=== PATIENT | female | born 1960 | race Caucasian/White ===

== ENCOUNTER → 2016-11-28 | Outpatient (CLI) | payer OTHER ==
--- OUTSIDE RECORDS SUMMARY | 2016-11-28 08:38 | XMS REPORT | Continuity of Care Document ---
Author Author [facility] Organization [facility] Address Unknown Phone Unavailable Allergies Medications Problems Procedures Results Encounters ACCT No. Visit Date/Time Discharge Status Pt. Type Provider Facility Loc./Unit Complaint [id number] 07/12/2014 09:59:00 2013 12:45:00 DIS Outpatient [id number] 07/08/2014 07:12:00 2013 23:59:59 CLS Outpatient [id number] 10/09/2013 09:03:00 2012 23:59:59 CLS Outpatient [id number] 06/29/2013 08:27:00 2012 23:59:59 CLS Outpatient
--- NOTE | 2016-11-28 12:34 | Diagnostic Imaging Report ---
PA and lateral views of the chest. INDICATION: Cough. Dyspnea. FINDINGS: There is focal eventration of the left hemidiaphragm. The lungs appear clear. The heart size is normal. No effusion or pneumothorax. Mediastinum and king appear unremarkable. When compared to 02/21/2012, no significant change is seen. IMPRESSION: Unremarkable exam. Dictated by: Dictated on workstation # [id number]
== END ==
LOC: RAD 08:35
PROVIDERS: ATTEND Family Medicine
DX: R06.00 Dyspnea, unspecified (principal); R05 Cough
CPT/HCPCS: 71020

== ENCOUNTER → 2016-12-05 | Outpatient (CLI) | payer OTHER ==
[~2016-12-05] MED LIST: RT-ALBUTEROL SULF 2.5 MG/3 ML PRE-MIX VIAL INH ONE
== END ==
LOC: RT 11:19
PROVIDERS: ATTEND Family Medicine
DX: R06.00 Dyspnea, unspecified (principal); R05 Cough
CPT/HCPCS: 94060; 94640; 94726; 94729

== ENCOUNTER 2016-12-24 08:03 | Outpatient (RCR) | payer OTHER ==
--- OUTSIDE RECORDS SUMMARY | 2016-12-24 08:06 | XMS REPORT | Continuity of Care Document ---
Author Author [facility] Organization [facility] Address Unknown Phone Unavailable Allergies Active Description Code Type Severity Reaction Onset Reported/Identified Relationship to Patient Clinical Status Yes acetaminophen [id number] Drug Allergy Mild NAUSEA 04/26/2009 Yes hydrocodone [id number] Drug Allergy Mild NAUSEA 04/26/2009 Medications Problems Date Dx Coded Attending Type Code Diagnosis Diagnosed By 07/12/2014 NAJMA FLORES, BOOGIE Melo Ot V18.51 FAMILY HISTORY, COLONIC POLYPS 07/12/2014 NAJMA FLORES, BOOGIE Melo Ot V76.51 SCREEN MAL NEOP-COLON 11/28/2016 Ot 780.79 OTH MALAISE FATIGUE 11/28/2016 Ot 786.09 RESPIRATORY ABNORM NEC 11/28/2016 Ot 786.2 COUGH 11/28/2016 Ot 793.82 INCONCLUSIVE MAMMOGRAM 11/28/2016 Ot V18.0 FAM HX-DIABETES MELLITUS 11/28/2016 Ot V76.12 OTH SCREEN MAMMO-MALIGN NEOPLASM OF NORTH 11/28/2016 Ot 611.72 LUMP OR MASS IN BREAST 11/28/2016 ORENDER DO, ANJEL S Ot 793.89 OTH (ABN) FINDINGS ON RADIOLOGICAL EXAMI 11/28/2016 BOOGIE YAO MD Ot 611.72 LUMP OR MASS IN BREAST 11/28/2016 NAJMA FLORES, BOOGIE Melo Ot V72.84 EXAM PRE-OPERATIVE NOS 11/29/2016 ORENDER DO, ANJEL S Ot R05 COUGH 11/29/2016 ORENDER DO, ANJEL S Ot R06.00 DYSPNEA, UNSPECIFIED 12/04/2016 ORENDER DO, ANJEL S Ot R05 COUGH 12/04/2016 ORENDER DO, ANJEL S Ot R06.00 DYSPNEA, UNSPECIFIED 12/06/2016 ORENDER DO, ANJEL S Ot R05 COUGH 12/06/2016 ORENDER DO, ANJEL S Ot R06.00 DYSPNEA, UNSPECIFIED 12/06/2016 ORENDER DO, ANJEL S Ot R05 COUGH 12/06/2016 IAMNDKAIN DOANA PAULAANJEL S Ot R06.00 DYSPNEA, UNSPECIFIED 12/11/2016 IAMNDKAIN ANA PAULA TAYOLRLINE S Ot R05 COUGH 12/11/2016 IAMNDKAIN DONENITAANJEL S Ot R06.00 DYSPNEA, UNSPECIFIED Procedures Results Encounters ACCT No. Visit Date/Time Discharge Status Pt. Type Provider Facility Loc./Unit Complaint [id number] 07/12/2014 09:59:00 2013 12:45:00 DIS Outpatient BOOGIE YAO MD [facility] SDC SCREENING [id number] 07/08/2014 07:12:00 2013 23:59:59 CLS Outpatient BOOGIE YAO MD [facility] PREOP SCREENING [id number] 10/09/2013 09:03:00 2012 23:59:59 CLS Outpatient BOOGIE YAO MD [facility] RAD RT BREAST LUMP [id number] 06/29/2013 08:27:00 2012 23:59:59 CLS Outpatient ANA PAULA MCNULTY DOLINE S [facility] RAD SCREENING [id number] 12/24/2016 08:03:00 ACT Outpatient NENITA MCNULTY DOQUELINE S [facility] PULM SEVERE COPD [id number] 12/05/2016 11:19:00 ACT Outpatient NENITA MCNULTY DOQUELINE S [facility] RT DYSPNEA,COUGH [id number] 11/28/2016 08:35:00 ACT Outpatient NENITA MCNULTY DOQUELINE S [facility] RAD COUGH,DYSPNEA [id number] 03/11/2012 13:23:00 Document Registration [id number] 02/21/2012 13:34:00 Document Registration
== END 2017-03-24 | disposition home or self-care (01) ==
LOC: PULM 08:03
PROVIDERS: ATTEND Family Medicine
DX: J44.9 Chronic obstructive pulmonary disease, unspecified (principal)
CPT/HCPCS: 99211

== ENCOUNTER → 2017-09-09 | Outpatient (CLI) | payer OTHER ==
--- NOTE | 2017-09-09 10:00 | Diagnostic Imaging Report ---
PA and lateral views of the chest Indication: Right-sided chest pain Findings: The lungs are clear of focal infiltrates. Minimal chronic appearing interstitial prominence is seen. The heart size is normal. There is no effusion or pneumothorax The mediastinum and king appear unremarkable. There is eventration of the left hemidiaphragm medially similar to 11/28/2016. Impression: No acute process. Dictated by: Dictated on workstation # [id number]
== END ==
LOC: RAD 09:18
PROVIDERS: ATTEND Nurse Practitioner Family
DX: R07.89 Other chest pain (principal)
CPT/HCPCS: 71020

== ENCOUNTER → 2019-04-02 | Outpatient (CLI) | payer OTHER ==
--- NOTE | 2019-04-02 10:43 | Diagnostic Imaging Report ---
INDICATION: Screening for lung cancer, chronic bronchitis, 58.5 pack year history of smoking. COMPARISON: None available. TECHNIQUE: Multiple contiguous axial CT images are obtained through the chest without the administration of intravenous contrast dated 04/02/2019. Sagittal and coronal reformatted images are reviewed. Low dose screening CT protocol used. FINDINGS: No significant adenopathy within the chest. Minimal scattered vascular calcifications. No aneurysmal dilatation of the thoracic aorta. The heart is within normal limits in size. No pericardial effusion. No pleural effusion. No pneumothorax. Moderate background centrilobular emphysematous changes are present. 0.3 x 0.3 cm solid subpleural left upper lobe pulmonary nodule, series 2, image 27. 0.4 cm part solid pulmonary nodule is identified within the anterior aspect of the left upper lobe, series 2, image 61. 0.6 x 0.4 cm pulmonary nodule is noted within the right lower lobe, series 2, image 116. The lungs are otherwise clear. Linear intraluminal filling defects are identified within the trachea extending into the bilateral mainstem bronchi. This is felt to relate to mucous. Fat-containing Bochdalek hernia on the left. Minimally visualized upper abdomen is unremarkable. No acute osseous abnormality with mild scattered osseous degenerative changes. IMPRESSION: 1. No acute abnormality. 2. Bilateral sub-6 mm solid pulmonary nodules. Given size and appearance, these demonstrate a benign appearance or behavior. Therefore, followup low dose CT of the chest is recommended in one year to ensure stability. 3. Moderate background emphysematous changes. 4. Mucus and secretions within the trachea extending into the bilateral mainstem bronchi. LungRads category 2S: Benign appearance or behavior. MODIFIER: S : Moderate background emphysematous changes. FOLLOWUP: Low dose CT of the chest is recommended in one year. Dictated by: Dictated on workstation # [id number]
== END ==
LOC: RAD 09:23
PROVIDERS: ATTEND Nurse Practitioner Family
DX: J43.2 Centrilobular emphysema (principal); R91.8 Other nonspecific abnormal finding of lung field; E66.9 Obesity, unspecified; J42 Unspecified chronic bronchitis; G25.81 Restless legs syndrome; G47.10 Hypersomnia, unspecified; Z87.891 Personal history of nicotine dependence

== ENCOUNTER → 2019-04-16 | Outpatient (CLI) | payer OTHER ==
--- NOTE | 2019-04-16 20:09 | Diagnostic Imaging Report ---
INDICATION: Routine screening. COMPARISON: Comparison is made with prior mammogram from 06/29/2013. TECHNIQUE: 2-D and 3-D bilateral screening mammography was performed. The current study was also evaluated with a Computer Aided Detection (CAD) system. 3-D tomosynthesis was also performed and reviewed. FINDINGS: Scattered fibroglandular densities are identified bilaterally. Scattered nodular densities appear stable. Biopsy clip in the right breast is noted. No new mass or malignant-appearing microcalcifications are seen. The axillae are unremarkable. IMPRESSION: No mammographic features suspicious for malignancy are identified. ACR BI-RADS Category 2: Benign findings. Result letter will be mailed to the patient. Note: At least 10% of breast cancer is not imaged by mammography. Dictated by: Dictated on workstation # [id number]
== END ==
LOC: RAD 10:40
PROVIDERS: ATTEND Nurse Practitioner Family
DX: Z12.31 Encounter for screening mammogram for malignant neoplasm of breast (principal)
CPT/HCPCS: 77067

== ENCOUNTER 2019-05-11 05:41 | Outpatient (CLI) | payer OTHER ==
[~2019-05-11] VITALS: Ht 149.9 cm; Wt 59.9 kg
[2019-05-11] MEDS ORDERED: AMLO5TAB9 PO (14:04)
[2019-05-11] MEDS ORDERED: BUPR150T9 PO (14:04)
[2019-05-11] MEDS ORDERED: BUDE10.2 IH (14:04)
== END 2019-05-11 14:13 | disposition home or self-care (01) ==
LOC: PREOP 05:41
PROVIDERS: ATTEND Internal Medicine
DX: Z01.818 Encounter for other preprocedural examination (principal)

== ENCOUNTER 2019-05-15 06:35 | Day surgery (SDC) | payer OTHER ==
--- NOTE | 2019-04-28 18:33 | HISTORY AND PHYSICAL ---
DATE OF SERVICE: COLONOSCOPY HISTORY AND PHYSICAL HISTORY OF PRESENT ILLNESS: The patient is a 58-year-old white female referred by Dr. Hummel for screening colonoscopy. She reports that she feels well, has noted no bowel habit change. Denies melena or bright red blood per rectum and reports weight has been stable. FAMILY HISTORY: Pertinent for a sister who is three years older, recently had several precancerous colon polyps removed. She is not aware of any family history for colon cancer or inflammatory bowel disease. 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 She has no known history for vascular disease that she is aware of. PAST SURGICAL HISTORY: Several years ago, she had total abdominal hysterectomy and bilateral salpingo-oophorectomy for fibroids as well as endometriosis. She had a tonsillectomy and adenoidectomy as a child. SOCIAL HISTORY: She is employed. Reports occasional social alcohol intake with no history of alcohol use disorder and has smoked 1 pack of cigarettes per day for a little over 30 years. MEDICATIONS ON ADMISSION: Include losartan unknown dose daily, Symbicort 2 puffs b.i.d. and ProAir inhaler 2 puffs q.4 hours p.r.n. ALLERGIES: She is not aware of any known drug allergies. REVIEW OF SYSTEMS: CONSTITUTIONAL: She denies any weight loss, night sweats, chills or fever. PULMONARY HISTORY: She reports stable dyspnea on exertion, mild cough productive of scant amount of clear sputum on a regular basis, but no current wheezing with stable dyspnea on exertion. No dyspnea at rest. CARDIOVASCULAR: She has no reported history of presyncope, syncope, chest pain or palpitation. GASTROINTESTINAL: As noted in the HPI. PHYSICAL EXAMINATION: GENERAL: Reveals a well-appearing white female, appears to be in no acute distress. VITAL SIGNS: Weight 146.2 pounds, blood pressure 130/81, heart rate 72 and regular. HEENT: Unremarkable. She has a Mallampati 3 pharyngeal configuration. Sclerae nonicteric. CHEST: Clear to auscultation. CARDIOVASCULAR: Reveals a regular rate and rhythm without murmur, S3 or S4. ABDOMEN: Soft, supple without mass, organomegaly or tenderness. EXTREMITIES: Reveal no cyanosis, clubbing or edema. ASSESSMENT: The patient's electronic medical record was reviewed. Prep instructions were given. The patient is set up for screening colonoscopy on 05/15/2019. The patient's questions were answered. I thank you for the referral of this pleasant lady. Job ID: [id number] DocumentID: [id number] Dictated Date: 04/24/2019 13:10:27 M48/M60 Tank Driver Date: 04/24/2019 13:49:58 Dictated By: MANNY MASON MD
[2019-05-15] VITALS (17 sets, daily range): BP systolic 89–166; BP diastolic 48–88
[~2019-05-15] VITALS: Ht 149.9 cm; Wt 59.9 kg
[~2019-05-15 06:35] MED LIST changes: +AMLO5TAB9 PO; +BUDE10.2 IH; +BUPR150T9 PO; -RT-ALBUTEROL SULF 2.5 MG/3 ML PRE-MIX VIAL INH ONE
[2019-05-15] MEDS ORDERED: fentaNYL INJECTION 100 MCG/2 ML AMP IVP ONE (07:00)
[2019-05-15] MEDS ORDERED: LIDOCAINE JELLY 2% 6 ML SYRINGE MM PRN (07:00)
[2019-05-15] MEDS ORDERED: MIDAZOLAM 2 MG/2 ML (VERSED) VIAL IVP ONE (07:00)
[2019-05-15] MEDS ORDERED: D5 LR IV SOLUTION 1,000 ML IV STA (07:00)
[2019-05-15] MEDS ORDERED: D5 LR IV SOLUTION 1,000 ML IV ONE (07:12)
[2019-05-15] MEDS ORDERED: LIDOCAINE JELLY 2% 6 ML SYRINGE ONE (07:41)
[2019-05-15] MEDS ORDERED: MIDAZOLAM 2 MG/2 ML (VERSED) VIAL ONE ×4 (07:42→08:16)
[2019-05-15] MEDS ORDERED: fentaNYL INJECTION 100 MCG/2 ML AMP ONE ×2 (07:42→08:16)
--- NOTE | 2019-05-15 07:59 | Pre-Op Note & Conscious Sedat ---
Pre-Operative Progress Note H&P Reviewed The H&P was reviewed, patient examined and no changes noted. Date H&P Reviewed: May 15, 2019 Time H&P Reviewed: 07:40 Conscious Sedation Pre-Proced ASA Score 2 For ASA 3 and 4: Consider anesthesia and medical clearance. Also, for patients with a history of failed moderate sedation consider anesthesia. Airway Lungs Heart ASA score ASA 1: a normal healthy patient ASA 2: a patient with a mild systemic disease (mid diabetes, controlled hypertension, obesity ASA 3: a patient with a severe systemic disease that limits activity (angina, COPD, prior Myocardial infarction) ASA 4: a patient with an incapacitating disease that is a constant threat to life (CHF, renal failure) ASA 5: a moribund patient not expected to survive 24 hrs. (ruptured aneurysm) ASA 6: a declared brain- patient whose organs are being harvested. For emergent operations, add the letter E after the classification Mallampati Classification Grade 3 Sedation Plan Analgesia, Amnesia, Plan communicated to team members, Discussed options with patient/fam, Discussed risks with patient/fam The patient is an appropriate candidate to undergo the planned procedure, sedation, and anesthesia. The patient immediately re-assessed prior to indication. MANNY MASON MD May 15, 2019 07:59
--- OUTSIDE RECORDS SUMMARY | 2019-05-15 10:16 | XMS REPORT | Continuity of Care Document ---
Author Organization Unknown Address Unknown Allergies Active Description Code Type Severity Reaction Onset Reported/Identified Relationship to Patient Clinical Status Yes acetaminophen [id number] Drug Allergy Mild NAUSEA 04/26/2009 Yes hydrocodone [id number] Drug Allergy Mild NAUSEA 04/26/2009 Yes amoxicillin [id number] Drug Allergy Mild RASH 05/11/2019 Medications There is no data. Problems Date Dx Coded Attending Type Code Diagnosis Diagnosed By 07/12/2014 NAJMA FLORES, BOOGIE Melo Ot V18.51 FAMILY HISTORY, COLONIC POLYPS 07/12/2014 NAJMA FLORES, BOOGIE Melo Ot V76.51 SCREEN MAL NEOP-COLON 11/28/2016 Ot 780.79 OTH MALAISE FATIGUE 11/28/2016 Ot 786.09 RESPIRATORY ABNORM NEC 11/28/2016 Ot 786.2 COUGH 11/28/2016 Ot 793.82 INCONCLUSIVE MAMMOGRAM 11/28/2016 Ot V18.0 FAM HX-DIABETES MELLITUS 11/28/2016 Ot V76.12 OTH SCREEN MAMMO- MALIGN NEOPLASM OF NORTH 11/28/2016 Ot 611.72 LUMP OR MASS IN BREAST 11/28/2016 ORENDER DO, EMILY S Ot 793.89 OTH (ABN) FINDINGS ON RADIOLOGICAL EXAMI 11/28/2016 NAJMA FLORES, BOOGIE Melo Ot 611.72 LUMP OR MASS IN BREAST 11/28/2016 NAJMA FLORES, BOOGIE Melo Ot V72.84 EXAM PRE-OPERATIVE NOS 11/29/2016 ORENDER DO, EMILY S Ot R05 COUGH 11/29/2016 ORENDER DO, EMILY S Ot R06.00 DYSPNEA, UNSPECIFIED 12/04/2016 ORENDER DO, EMILY S Ot R05 COUGH 12/04/2016 ORENDER DO, EMILY S Ot R06.00 DYSPNEA, UNSPECIFIED 12/06/2016 ORENDER DO, EMILY S Ot R05 COUGH 12/06/2016 ORENDER DO, EMILY S Ot R06.00 DYSPNEA, UNSPECIFIED 12/06/2016 ORENDER DO, EMILY S Ot R05 COUGH 12/06/2016 ORENDER DO, EMILY S Ot R06.00 DYSPNEA, UNSPECIFIED 12/11/2016 ORENDER DO, EMILY S Ot R05 COUGH 12/11/2016 ORENDER DO, EMILY S Ot R06.00 DYSPNEA, UNSPECIFIED 12/25/2016 ORENDER DO, EMILY S Ot R05 COUGH 12/25/2016 ORENDER DO, EMILY S Ot R06.00 DYSPNEA, UNSPECIFIED 12/26/2016 ORENDER DO, EMILY S Ot J44.9 CHRONIC OBSTRUCTIVE PULMONARY DISEASE, U 03/24/2017 ORENDER DO, EMILY S Ot J44.9 CHRONIC OBSTRUCTIVE PULMONARY DISEASE, U 03/25/2017 ORENDER DO, EMILY S Ot J44.9 CHRONIC OBSTRUCTIVE PULMONARY DISEASE, U 08/14/2017 Ot 611.72 LUMP OR MASS IN BREAST 08/14/2017 ORENDER DO, EMILY S Ot 793.89 OTH (ABN) FINDINGS ON RADIOLOGICAL EXAMI 08/14/2017 NAJMA FLORES, BOOGIE Melo Ot 611.72 LUMP OR MASS IN BREAST 08/14/2017 NAJMA FLORES, BOOGIE Melo Ot V72.84 EXAM PRE-OPERATIVE NOS 08/14/2017 ORENDER DO, EMILY S Ot R05 COUGH 08/14/2017 ORENDER DO, EMILY S Ot R06.00 DYSPNEA, UNSPECIFIED 08/14/2017 ORENDER DO, EMILY S Ot R05 COUGH 08/14/2017 ORENDER DO, EMILY S Ot R06.00 DYSPNEA, UNSPECIFIED 08/14/2017 ORENDER DO, EMILY S Ot J44.9 CHRONIC OBSTRUCTIVE PULMONARY DISEASE, U 09/15/2017 MELL, LORI R INSULATION MANAGER Ot R07.89 OTHER CHEST PAIN 10/09/2017 MELL, LORI R INSULATION MANAGER Ot R07.89 OTHER CHEST PAIN 03/04/2019 NAJMA FLORES, BOOGIE M Ot 611.72 LUMP OR MASS IN BREAST 03/04/2019 NAJMA FLORES, BOOGIE Melo Ot V72.84 EXAM PRE-OPERATIVE NOS 03/04/2019 ORENDER DO, EMILY S Ot R05 COUGH 03/04/2019 ORENDER DO, EMILY S Ot R06.00 DYSPNEA, UNSPECIFIED 03/04/2019 ORENDER DO, EMILY S Ot R05 COUGH 03/04/2019 ORENDER DO, EMILY S Ot R06.00 DYSPNEA, UNSPECIFIED 03/04/2019 ORENDER DO, EMILY S Ot J44.9 CHRONIC OBSTRUCTIVE PULMONARY DISEASE, U 03/04/2019 MELL, LORI R INSULATION MANAGER Ot R07.89 OTHER CHEST PAIN 04/02/2019 NAJMA FLORES, BOOGIE M Ot V72.84 EXAM PRE-OPERATIVE NOS 04/02/2019 ORENDER DO, EMILY S Ot R05 COUGH 04/02/2019 ORENDER DO, EMILY S Ot R06.00 DYSPNEA, UNSPECIFIED 04/02/2019 ORENDER DO, EMILY S Ot R05 COUGH 04/02/2019 ORENDER DO, EMILY S Ot R06.00 DYSPNEA, UNSPECIFIED 04/02/2019 ORENDER DO, EMILY S Ot J44.9 CHRONIC OBSTRUCTIVE PULMONARY DISEASE, U 04/02/2019 MELL, LORI R INSULATION MANAGER Ot R07.89 OTHER CHEST PAIN 04/16/2019 NAJMA FLORES, BOOGIE M Ot V72.84 EXAM PRE-OPERATIVE NOS 04/16/2019 ORENDER DO, EMILY S Ot R05 COUGH 04/16/2019 ORENDER DO, EMILY S Ot R06.00 DYSPNEA, UNSPECIFIED 04/16/2019 ORENDER DO, EMILY S Ot R05 COUGH 04/16/2019 ORENDER DO, EMILY S Ot R06.00 DYSPNEA, UNSPECIFIED 04/16/2019 ORENDER DO, EMILY S Ot J44.9 CHRONIC OBSTRUCTIVE PULMONARY DISEASE, U 04/16/2019 MELL, LORI R INSULATION MANAGER Ot R07.89 OTHER CHEST PAIN 04/16/2019 CARLOS STRINGER INSULATION MANAGER Ot E66.9 OBESITY, UNSPECIFIED 04/16/2019 CARLOS STRINGER INSULATION MANAGER Ot G25.81 RESTLESS LEGS SYNDROME 04/16/2019 CARLOS STRINGER INSULATION MANAGER Ot G47.10 HYPERSOMNIA, UNSPECIFIED 04/16/2019 CARLOS STRINGER INSULATION MANAGER Ot J42 UNSPECIFIED CHRONIC BRONCHITIS 04/16/2019 MYKEGAIL FINNEGANINE Guillermo INSULATION MANAGER Ot J43.2 CENTRILOBULAR EMPHYSEMA 04/16/2019 MYKEGAIL FINNEGANINE Guillermo INSULATION MANAGER Ot R91.8 OTHER NONSPECIFIC ABNORMAL FINDING OF JEAN CARLOS 04/16/2019 MYKECARLOS FINNEGAN INSULATION MANAGER Ot Z87.891 PERSONAL HISTORY OF NICOTINE DEPENDENCE 04/17/2019 MELL LORI R INSULATION MANAGER Ot Z12.31 ENCNTR SCREEN MAMMOGRAM FOR MALIGNANT NE 04/22/2019 MELL, LORI R INSULATION MANAGER Ot Z12.31 ENCNTR SCREEN MAMMOGRAM FOR MALIGNANT NE 04/22/2019 MYKEGAIL FINNEGANINE Guillermo INSULATION MANAGER Ot E66.9 OBESITY, UNSPECIFIED 04/22/2019 MYKECARLOS FINNEGAN INSULATION MANAGER Ot G25.81 RESTLESS LEGS SYNDROME 04/22/2019 CARLOS STRINGER INSULATION MANAGER Ot G47.10 HYPERSOMNIA, UNSPECIFIED 04/22/2019 CARLOS STRINGER INSULATION MANAGER Ot J42 UNSPECIFIED CHRONIC BRONCHITIS 04/22/2019 CARLOS STRINGER INSULATION MANAGER Ot J43.2 CENTRILOBULAR EMPHYSEMA 04/22/2019 MYKEGAIL FINNEGANINE Guillermo INSULATION MANAGER Ot R91.8 OTHER NONSPECIFIC ABNORMAL FINDING OF JEAN CARLOS 04/22/2019 CARLOS STRINGER INSULATION MANAGER Ot Z87.891 PERSONAL HISTORY OF NICOTINE DEPENDENCE 04/29/2019 LYNDA MONTEON R INSULATION MANAGER Ot Z12.31 ENCNTR SCREEN MAMMOGRAM FOR MALIGNANT NE 05/11/2019 EMILY HUMMEL DO Ot J44.9 CHRONIC OBSTRUCTIVE PULMONARY DISEASE, U 05/12/2019 MANNY MASON MD Ot Z01.818 ENCOUNTER FOR OTHER PREPROCEDURAL EXAMIN Procedures There is no data. Results There is no data. Encounters ACCT No. Visit Date/Time Discharge Status Pt. Type Provider Facility Loc./Unit Complaint 12/201605/12/2019 14:24:44 ACT Outpatient Emily Hummel [id number] 05/11/2019 05:41:00 05/11/2019 14:13:00 DIS Outpatient MANNY MASON MD [facility] PREOP COLONOSCOPY [id number] 04/16/2019 10:40:00 04/16/2019 23:59:59 CLS Outpatient LORI MONTE INSULATION MANAGER [facility] RAD SCREENING [id number] 04/02/2019 09:23:00 04/02/2019 23:59:59 CLS Outpatient CARLOS STRINGER INSULATION MANAGER [facility] RAD OBESITY,COPD,FORMER SMOKER,CHRONIC BRONCHITIS,RLS [id number] 02/02/2019 10:32:00 02/02/2019 23:59:59 CLS Preadmit CARLOS STRINGER INSULATION MANAGER [facility] RT COPD [id number] 02/02/2019 10:30:00 02/02/2019 23:59:59 CLS Preadmit CARLOS STRINGER INSULATION MANAGER [facility] SLEEP COPD [id number] 09/09/2017 09:18:00 09/09/2017 23:59:59 CLS Outpatient LORI MONTE INSULATION MANAGER [facility] RAD RIGHT CHEST PAIN [id number] 03/25/2017 08:15:00 03/25/2017 23:59:59 CLS Preadmit NENITA HUMMEL DOQUELINE S [facility] PULM SEVERE COPD [id number] 12/24/2016 08:03:00 03/24/2017 00:01:00 DIS Outpatient PRICILA TAYLOR EMILY S [facility] PULM SEVERE COPD [id number] 12/05/2016 11:19:00 12/05/2016 23:59:59 CLS Outpatient PRICILA TAYLOR EMILY S [facility] RT DYSPNEA,COUGH [id number] 11/28/2016 08:35:00 11/28/2016 23:59:59 CLS Outpatient NENITA HUMMEL DOQUELINE S [facility] RAD COUGH,DYSPNEA [id number] 07/12/2014 09:59:00 07/12/2014 12:45:00 DIS Outpatient BOOGIE YAO MD [facility] SDC SCREENING [id number] 07/08/2014 07:12:00 07/08/2014 23:59:59 CLS Outpatient BOOGIE YAO MD [facility] PREOP SCREENING [id number] 10/09/2013 09:03:00 10/09/2013 23:59:59 CLS Outpatient NAJMA FLORES, BOOGIE Melo [facility] RAD RT BREAST LUMP [id number] 06/29/2013 08:27:00 06/29/2013 23:59:59 CLS Outpatient EMILY HUMMEL DO [facility] RAD SCREENING [id number] 05/15/2019 08:00:00 PEN Preadkristel MASON MD, MANNY Castro [facility] ENDO SCREENING [id number] 03/11/2012 13:23:00 Document Registration [id number] 02/21/2012 13:34:00 Document Registration
--- NOTE | 2019-05-15 19:51 | OPERATIVE REPORT ---
DATE OF SERVICE: COLONOSCOPY SUMMARY INDICATION FOR THE PROCEDURE: Screening colonoscopy. DESCRIPTION OF PROCEDURE: The patient was placed in the left lateral decubitus position. Prior to undergoing colonoscopy, digital rectal evaluation was performed. Anal sphincter tone was normal and the perianal reflexes intact. No abnormalities were noted on digital inspection of anal canal or distal rectal vault. The colonoscope was then inserted into the rectum and under direct visualization advanced to the cecum. The cecum was identified by identification of the ileocecal valve, cecal strap and appendiceal orifice. Photographic documentation was obtained. Careful inspection was made as the colonoscope withdrawn. FINDINGS: There was no evidence for internal or external hemorrhoids. The rectum, sigmoid colon, descending colon, transverse colon, ascending colon and cecum were unremarkable with no evidence for neoplasia or diverticular disease. ASSESSMENT: Normal colonoscopy to the cecum. We would advocate consideration for repeat screening colonoscopy in 10 years as the patient is not aware of any family history for colon cancer. I thank you for the referral of this pleasant lady. Job ID: [id number] DocumentID: [id number] Dictated Date: 05/15/2019 12:16:54 Geodetic Advisor Date: 05/15/2019 19:50:35 Dictated By: MANNY MASON MD
== END 2019-05-15 10:05 | disposition home or self-care (01) ==
LOC: ENDO 06:35
PROVIDERS: ATTEND Internal Medicine
DX: Z12.11 Encounter for screening for malignant neoplasm of colon (principal); J44.9 Chronic obstructive pulmonary disease, unspecified; I10 Essential (primary) hypertension; F17.210 Nicotine dependence, cigarettes, uncomplicated; Z88.1 Allergy status to other antibiotic agents; Z79.51 Long term (current) use of inhaled steroids; Z79.899 Other long term (current) drug therapy; Z90.710 Acquired absence of both cervix and uterus; Z90.722 Acquired absence of ovaries, bilateral; Z90.79 Acquired absence of other genital organ(s); Z83.71 Family history of colonic polyps

== ENCOUNTER → 2020-04-21 | Outpatient (CLI) | payer OTHER | LOC: LABNPT 06:38 | PROVIDERS: ATTEND Family Medicine | DX: R06.00 Dyspnea, unspecified (principal); R05 Cough; R09.81 Nasal congestion; Z20.828 Contact with and (suspected) exposure to other viral communicable diseases | CPT/HCPCS: 87635 ==

== ENCOUNTER → 2020-07-25 | Outpatient (CLI) | payer OTHER ==
[~2020-07-25] MED LIST changes: +CATHETER FLUSH 10 ML SYR IV PRN; +HOLD METFORMIN - RECEIVED CONTRAST 20 ML VIAL IV SCH; +IOHEXOL 350 MG/ML 100 ML (OMNIPAQUE 350) VIAL IV ONE; +NS 100 ML (IVPB) BAG IV ONE
[2020-07-25 13:59] LABS: BUN/CREATININE RATIO 16; CREATININE SERUM 0.88 MG/DL (0.60-1.30); GFR ESTIMATED > 60
--- NOTE | 2020-07-25 17:48 | Diagnostic Imaging Report ---
PROCEDURE: CT chest with contrast only. TECHNIQUE: Multiple contiguous axial images were obtained through the chest after administration of intravenous contrast. Auto Exposure Controls were utilized during the CT exam to meet ALARA standards for radiation dose reduction. INDICATION: Chronic bronchitis. Cough. COMPARISON with CT screening chest 04/02/2019 FINDINGS: Chronic changes of centrilobular emphysema are present. No acute infiltrate, failure, effusion or pneumothorax. No lymphadenopathy. No dominant or suspicious lung mass. The visualized upper abdomen unremarkable. IMPRESSION: Changes of COPD, otherwise negative. Dictated by: Dictated on workstation # [id number]
== END ==
LOC: RAD 13:34
PROVIDERS: ATTEND Nurse Practitioner Family
DX: J44.9 Chronic obstructive pulmonary disease, unspecified (principal); G25.81 Restless legs syndrome; R91.8 Other nonspecific abnormal finding of lung field; F17.200 Nicotine dependence, unspecified, uncomplicated
CPT/HCPCS: 36415; 71260; 82565; 84520

== ENCOUNTER → 2021-03-23 | Outpatient (CLI) | payer OTHER ==
[~2021-03-23] MED LIST changes: +AMLO-250 PO; -AMLO5TAB9 PO; -CATHETER FLUSH 10 ML SYR IV PRN; -HOLD METFORMIN - RECEIVED CONTRAST 20 ML VIAL IV SCH; -IOHEXOL 350 MG/ML 100 ML (OMNIPAQUE 350) VIAL IV ONE; -NS 100 ML (IVPB) BAG IV ONE
--- NOTE | 2021-03-23 19:25 | Diagnostic Imaging Report ---
INDICATION: Routine screening. COMPARISON: Prior mammogram of 04/16/2019. EXAMINATION: 2D and 3D bilateral screening mammography was performed with CAD. The current study was also evaluated with a Computer Aided Detection (CAD) system. FINDINGS: Scattered fibroglandular densities are identified, bilaterally. Biopsy marker clip in the central right breast is again noted. Intraparenchymal lymph nodes in the region axillary tail, bilaterally, appear stable. No spiculated mass or malignant appearing microcalcification is seen. The axillae are unremarkable. IMPRESSION: No mammographic feature suspicious for malignancy is identified. ACR BI-RADS Category 2: Benign findings. Result letter will be mailed to the patient. Note: At least 10% of breast cancer is not imaged by mammography. Dictated by: Dictated on workstation # [id number]
== END ==
LOC: RAD 11:00
PROVIDERS: ATTEND Family Medicine
DX: Z12.31 Encounter for screening mammogram for malignant neoplasm of breast (principal)
CPT/HCPCS: 77063; 77067

== ENCOUNTER → 2021-05-31 | Outpatient (CLI) | payer OTHER ==
[~2021-05-31] MED LIST changes: +RT-ALBUTEROL SULF 2.5 MG/3 ML PRE-MIX VIAL INH ONE
== END ==
LOC: RT 12:36
PROVIDERS: ATTEND Nurse Practitioner Family
DX: J44.9 Chronic obstructive pulmonary disease, unspecified (principal)
CPT/HCPCS: 94060; 94726; 94729

== ENCOUNTER → 2021-07-26 | Outpatient (CLI) | payer BC, OTHER ==
[~2021-07-26] MED LIST changes: -RT-ALBUTEROL SULF 2.5 MG/3 ML PRE-MIX VIAL INH ONE
--- NOTE | 2021-07-26 10:18 | Diagnostic Imaging Report ---
EXAMINATION: CT chest without contrast (lung screening). TECHNIQUE: Multiple contiguous axial images were obtained through the chest without the use of intravenous contrast according to lung cancer screening protocol. All CT scans use one or more of the following dose optimizing techniques: automated exposure control, MA and/or KvP adjustment based on patient size and exam type or iterative reconstruction. HISTORY: 31 pack year history of smoking. COMPARISON: CT chest 07/25/2020 FINDINGS: Thyroid: The thyroid is normal. Mediastinum: Heart size is normal without significant pericardial effusion. Calcifications of the aorta and coronary vessels. Thoracic aorta is normal in caliber. No suspicious lymphadenopathy. Lungs and airways: The lungs are clear without consolidation, pleural effusion, or pneumothorax. There are 2 focal nodular areas of scarring or atelectasis in the right lung base measuring up to 0.4 cm. There is mild bronchial wall thickening. Upper abdomen: The subphrenic structures are normal. Musculoskeletal: Degenerative changes of the spine without suspicious osseous lesion or compression fracture. IMPRESSION: 1. Right lower lobe subpleural pulmonary nodules measuring up to 0.4 cm. Recommend 6 month follow-up with low-dose CT. 2. COPD. LUNG-RADS CATEGORY: 3 MODIFIER: S Dictated by: Dictated on workstation # [id number]
== END ==
LOC: RAD 08:14
PROVIDERS: ATTEND Nurse Practitioner Family
DX: Z12.2 Encounter for screening for malignant neoplasm of respiratory organs (principal); R91.8 Other nonspecific abnormal finding of lung field; J44.9 Chronic obstructive pulmonary disease, unspecified; Z87.891 Personal history of nicotine dependence
CPT/HCPCS: 71271

== ENCOUNTER 2021-08-20 01:35 | Inpatient (IN) | payer BC ==
[~2021-08-20] VITALS: Ht 152 cm; Wt 73.5 kg
[2021-08-20 02:15] LABS: BILIRUBIN,URINE NEGATIVE (NEGATIVE); CLARITY,URINE CLEAR; COLOR,URINE YELLOW; GLUCOSE, URINE (UA) NEGATIVE (NEGATIVE); KETONES,URINE NEGATIVE (NEGATIVE); LEUKOCYTE ESTERASE ,URINE NEGATIVE (NEGATIVE); NITRITE,URINE NEGATIVE (NEGATIVE); PH,URINE 5.5 (5-9); PROTEIN,URINE NEGATIVE (NEGATIVE)
[2021-08-20] MEDS ORDERED: ONDANSETRON 4 MG/2 ML (SDV) Z0FRAN IVP ONE (02:15)
[2021-08-20] MEDS ORDERED: LACTATED RINGERS 1,000 ML IV ONE ×2 (02:15→02:45)
[2021-08-20] MEDS ORDERED: PANTOPRAZOLE 40 MG (PROTONIX) VIAL IV ONE (02:15)
[2021-08-20 02:22] LABS: BASOPHILS # (AUTO) 0.1 10^3/uL (0.0-0.1); BASOPHILS % (AUTO) 1 % (0-10); EOSINOPHILS # (AUTO) 0.2 10^3/uL (0.0-0.3); EOSINOPHILS % (AUTO) 1 % (0-10); HEMATOCRIT 49 % (35-52); HEMOGLOBIN 15.8 g/dL (11.5-16.0); LYMPHOCYTES # (AUTO) 4.9 10^3/uL (1.0-4.0); LYMPHOCYTES % (AUTO) 19 % (12-44); MEAN CORPUSCULAR HEMOGLOBIN 29 pg (25-34); MEAN CORPUSCULAR HGB CONC 33 g/dL (32-36); MEAN CORPUSCULAR VOLUME 89 fL (80-99); MEAN PLATELET VOLUME 8.6 fL (9.0-12.2); MONOCYTES # (AUTO) 2.3 10^3/uL (0.0-1.0); MONOCYTES % (AUTO) 9 % (0-12); NEUTROPHILS # (AUTO) 17.8 10^3/uL (1.8-7.8); NEUTROPHILS % (AUTO) 69 % (42-75); PLATELET COUNT 421 10^3/uL (130-400); WHITE BLOOD COUNT 25.7 10^3/uL (4.3-11.0)
[2021-08-20 02:29] LABS: BACTERIA,URINE NEGATIVE /HPF; CALCIUM OXALATE CRYSTALS,UR LARGE /LPF
[2021-08-20 02:41] LABS: ALBUMIN 4.3 GM/DL (3.2-4.5); CHLORIDE 99 MMOL/L (98-107); POTASSIUM 3.9 MMOL/L (3.6-5.0); SODIUM 140 MMOL/L (135-145)
[2021-08-20 02:42] LABS: AMYLASE 98 U/L (25-125); CALCIUM 9.5 MG/DL (8.5-10.1)
[2021-08-20 02:43] LABS: GLUCOSE 154 MG/DL (70-105)
[2021-08-20 02:44] LABS: TOTAL PROTEIN 7.2 GM/DL (6.4-8.2)
[2021-08-20 02:45] LABS: BILIRUBIN,TOTAL 0.5 MG/DL (0.1-1.0); CARBON DIOXIDE 27 MMOL/L (21-32)
[2021-08-20] MEDS ORDERED: fentaNYL INJ 100 MCG/2 ML AMP IVP ONE ×2 (02:45→04:45)
[2021-08-20 02:47] LABS: ALKALINE PHOSPHATASE 104 U/L (40-136); CREATININE SERUM 0.94 MG/DL (0.60-1.30); GFR ESTIMATED 61
[2021-08-20 02:48] LABS: BUN/CREATININE RATIO 30
[2021-08-20 02:50] LABS: ALANINE AMINOTRANSFERASE 20 U/L (0-55); BAND NEUTROPHILS 1 %; EOSINOPHILS % (MANUAL) 3 %; LYMPHOCYTES % (MANUAL) 23 %; MAGNESIUM 2.3 MG/DL (1.6-2.4); MONOCYTES % (MANUAL) 8 %; NEUTROPHILS % (MANUAL) 65 %; RBC MORPH NORMAL
[2021-08-20 02:51] LABS: LIPASE 22 U/L (8-78)
[2021-08-20] MEDS ORDERED: HOLD METFORMIN - RECEIVED CONTRAST 20 ML VIAL IV SCH (03:30)
[2021-08-20] MEDS ORDERED: IOHEXOL 350 MG/ML 100 ML (OMNIPAQUE 350) VIAL IV ONE (03:30)
[2021-08-20] MEDS ORDERED: NS 100 ML (IVPB) BAG IV ONE (03:30)
--- NOTE | 2021-08-20 03:40 | ED Abdominal Pain ---
General Chief Complaint: Abdominal/GI Problems Stated Complaint: ABD PAIN,N/V Nursing Triage Note: PATIENT STATES THAT SHE BEGAN TO EXPERIENCE ABD PAIN AT 2129 AND HAS VOMITTED MULTIPLE TIMES. SHE DESCRIBES THE LOCATION THE ACROSS THE UPPER ABD UNDER HER BREASTS. DENIES DIARRHEA. SHE ALSO STATED THAT SHE DID HAVE THE MODERNA BOOSTER (3RD SHOT) 3 DAYS AGO. Source of Information: Patient History of Present Illness Date Seen by Provider: Aug 20, 2021 Time Seen by Provider: 02:00 Initial Comments PT ARRIVES VIA POV FROM HOME C/O DIFFUSE UPPER ABDOMINAL PAIN SINCE 2129 PAIN COMES AND GOES HAS NAUSEA AND VOMITING--MOSTLY WHEN PAIN IS SEVERE--HAS VOMITED X 10 NO DIARRHEA LAST BM WAS 0800 ON 08/19/21 NO FEVER NO URINARY SYMPTOMS HAS HAD SWEATS AND CHILLS NO HISTORY OF SIMILAR NO HISTORY OF GI PROBLEMS OR GI SURGERIES HAS HAD HYSTERECTOMY--LAVH/BSO IN 2008 PT HAS COPD AND HAD A FLARE UP LAST WEEK AND TOOK STEROIDS LAST WEEK, FINISHED STEROIDS A COUPLE OF DAYS AGO NO GI PROBLEMS WITH STEROIDS IN THE PAST PT ALSO HAD HER 3RD COVID-19 VACCINE 3 DAYS AGO DID NOT HAVE ANY GI PROBLEMS WITH PREVIOUS VACCINES. PCP: DR. MCNULTY Allergies and Home Medications Allergies Coded Allergies: amoxicillin (Verified Allergy, Mild, RASH, 05/11/19) Patient Home Medication List Home Medication List Reviewed: Yes Amlodipine Besylate (Amlodipine Besylate) 5 Mg Tablet, 5 MG PO DAILY, (Reported) Entered as Reported by: JUDY ANDREWS on 05/11/19 140 Budesonide/Formoterol Fumarate (Symbicort 160-4.5 Mcg Inhaler) 10.2 Gm Hfa.aer.ad, 2 PUFF IH BID, (Reported) Entered as Reported by: JUDY ANDREWS on 05/11/19 140 Bupropion HCl (Wellbutrin Sr) 150 Mg Tablet.er, 150 MG PO DAILY, (Reported) Entered as Reported by: JUDY ANDREWS on 05/11/19 140 Review of Systems Review of Systems Constitutional: see HPI, chills, diaphoresis EENTM: No Symptoms Reported Respiratory: See HPI, Other (ALWAYS SHORT OF BREATH DUE TO COPD) Cardiovascular: Denies Chest Pain Gastrointestinal: See HPI, Abdominal Pain; Denies Constipated, Denies Diarrhea; Nausea, Other Genitourinary: No Symptoms Reported Musculoskeletal: no symptoms reported; No back pain Skin: no symptoms reported Psychiatric/Neurological: No Symptoms Reported Endocrine: No Symptoms Reported Hematologic/Lymphatic: No Symptoms Reported Past Hrqjgkv-Jovekv-Qcxetv Hx Patient Social History Tobacco Use?: Yes (SMOKED 1 PPD, QUIT 04/2021) Tobacco type used: Cigarettes Smoking Status: Former Smoker Substance use?: No Alcohol Use?: No Immunizations Up To Date Tetanus Booster (TDap): Unknown Seasonal Allergies Seasonal Allergies: No Past Medical History Surgery/Hospitalization HX: LAVH/BSO 04/[address] POE SCREENING COLONOSCOPY--NORMAL--06/[address] 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 Sexually Transmitted Disease: No HIV/AIDS: No Genitourinary: No Gastrointestinal: Yes (DYSPHAGIA) Gastroesophageal Reflux Musculoskeletal: Yes Arthritis, Chronic Back Pain Endocrine: No HEENT: Yes (READING GLASSES, DENTURES) Tonsilitis Loss of Vision: Denies Hearing Impairment: Denies Cancer: No Psychosocial: No Integumentary: No Blood Disorders: No Adverse Reaction/Blood Tranf: No (N/A) Physical Exam Vital Signs Vital Signs - First Documented 08/20/21 01:52 Temp 36.4 Pulse 93 Resp 20 B/P (MAP) 142/81 (101) Capillary Refill : Less Than 3 Seconds Height/Weight/BMI Height: 4'11.00" Weight: 132lbs. 0.0oz. 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, no motor/sensory deficits, alert, oriented x 3 Skin: normal color, warm/dry; No rash Focused Exam Sepsis Stage: Sepsis Possible Source: GI Tract/Intra-Abdominal Lactate Level 08/20/21 02:50: Lactic Acid Level 2.00 Time of Focused Exam: 04:15 Respiratory: Lungs Clear, Normal Breath Sounds, No Accessory Muscle Use, No Respiratory Distress Cardiovascular: Regular Rate, Rhythm, No Murmur Capillary Refill: Less Than 3 Seconds Skin: normal color, warm/dry Lactic Acid Level Laboratory Tests Test 08/20/21 02:50 Lactic Acid Level 2.00 MMOL/L (0.50-2.00) Within 3hrs of presentation: Admin fluids, Admin ABX, Blood cultures prior to ABX's, Focus exam, Lactate level Progress/Results/Core Measures Results/Orders Lab Results Laboratory Tests Test 08/20/21 02:10 08/20/21 02:16 08/20/21 02:50 Range/Units Urine Color YELLOW Urine Clarity CLEAR Urine pH 5.5 5-9 Urine Specific Delta >=1.030 1.016-1.022 Urine Protein NEGATIVE NEGATIVE Urine Glucose (UA) NEGATIVE NEGATIVE Urine Ketones NEGATIVE NEGATIVE Urine Nitrite NEGATIVE NEGATIVE Urine Bilirubin NEGATIVE NEGATIVE Urine Urobilinogen 0.2 < = 1.0 MG/DL Urine Leukocyte Esterase NEGATIVE NEGATIVE Urine RBC (Auto) NEGATIVE NEGATIVE Urine RBC NONE /HPF Urine WBC NONE /HPF Urine Squamous Epithelial Cells 2-5 /HPF Urine Crystals PRESENT H /LPF Urine Calcium Oxalate Crystals LARGE H /LPF Urine Bacteria NEGATIVE /HPF Urine Casts NONE /LPF Urine Mucus MODERATE H /LPF Urine Culture Indicated NO White Blood Count 25.7 H 4.3-11.0 10^3/uL Red Blood Count 5.48 H 3.80-5.11 10^6/uL Hemoglobin 15.8 11.5-16.0 g/dL Hematocrit 49 35-52 % Mean Corpuscular Volume 89 80-99 fL Mean Corpuscular Hemoglobin 29 25-34 pg Mean Corpuscular Hemoglobin Concent 33 32-36 g/dL Red Cell Distribution Width 14.0 10.0-14.5 % Platelet Count 421 H 130-400 10^3/uL Mean Platelet Volume 8.6 L 9.0-12.2 fL Immature Granulocyte % (Auto) 1 % Neutrophils (%) (Auto) 69 42-75 % Lymphocytes (%) (Auto) 19 12-44 % Monocytes (%) (Auto) 9 0-12 % Eosinophils (%) (Auto) 1 0-10 % Basophils (%) (Auto) 1 0-10 % Neutrophils # (Auto) 17.8 H 1.8-7.8 10^3/uL Lymphocytes # (Auto) 4.9 H 1.0-4.0 10^3/uL Monocytes # (Auto) 2.3 H 0.0-1.0 10^3/uL Eosinophils # (Auto) 0.2 0.0-0.3 10^3/uL Basophils # (Auto) 0.1 0.0-0.1 10^3/uL Immature Granulocyte # (Auto) 0.3 H 0.0-0.1 10^3/uL Neutrophils % (Manual) 65 % Lymphocytes % (Manual) 23 % Monocytes % (Manual) 8 % Eosinophils % (Manual) 3 % Band Neutrophils 1 % Blood Morphology Comment NORMAL Erythrocyte Sedimentation Rate 2 0-30 MM/HR Sodium Level 140 135-145 MMOL/L Potassium Level 3.9 3.6-5.0 MMOL/L Chloride Level 99 98-107 MMOL/L Carbon Dioxide Level 27 21-32 MMOL/L Anion Gap 14 5-14 MMOL/L Blood Urea Nitrogen 28 H 7-18 MG/DL Creatinine 0.94 0.60-1.30 MG/DL Estimat Glomerular Filtration Rate 61 BUN/Creatinine Ratio 30 Glucose Level 154 H 70-105 MG/DL Calcium Level 9.5 8.5-10.1 MG/DL Corrected Calcium 9.3 8.5-10.1 MG/DL Magnesium Level 2.3 1.6-2.4 MG/DL Total Bilirubin 0.5 0.1-1.0 MG/DL Aspartate Amino Transf (AST/SGOT) 14 5-34 U/L Alanine Aminotransferase (ALT/SGPT) 20 0-55 U/L Alkaline Phosphatase 104 40-136 U/L Troponin I < 0.028 <0.028 NG/ML C-Reactive Protein High Sensitivity 0.73 H 0.00-0.50 MG/DL Total Protein 7.2 6.4-8.2 GM/DL Albumin 4.3 3.2-4.5 GM/DL Amylase Level 98 25-125 U/L Lipase 22 8-78 U/L Procalcitonin 0.03 <0.10 NG/ML Lactic Acid Level 2.00 0.50-2.00 MMOL/L My Orders Orders - LUCIANO LAL DO Ed Iv/Invasive Line Start (08/20/21 02:08) Ekg Tracing (08/20/21 02:08) Monitor-Rhythm Ecg Trace Only (08/20/21 02:08) Amylase (08/20/21 02:08) Cbc With Automated Diff (08/20/21 02:08) Comprehensive Metabolic Panel (08/20/21 02:08) Lipase (08/20/21 02:08) Magnesium (08/20/21 02:08) Ua Culture If Indicated (08/20/21 02:08) Ed Iv/Invasive Line Start (08/20/21 02:08) Lactated Ringers (Lr 1000 Ml Iv Solution (08/20/21 02:15) Ondansetron Injection (Zofran Injectio (08/20/21 02:15) Pantoprazole Injection (Protonix Injecti (08/20/21 02:15) Troponin I (08/20/21 02:08) Manual Differential (08/20/21 02:16) Hs C Reactive Protein (08/20/21 02:35) Lactic Acid Analyzer (08/20/21 02:35) Procalcitonin (Pct) (08/20/21 02:35) Blood Culture (08/20/21 02:35) Erythrocyte Sedimentation Rate (08/20/21 02:35) Chest 1 View, Ap/Pa Only (08/20/21 02:35) Ed Iv/Invasive Line Start (08/20/21 02:35) Vital Signs Adult Sepsis Patie Q15M (08/20/21 02:35) Remove Rings In Anticipation O (08/20/21 02:35) Lactated Ringers (Lr 1000 Ml Iv Solution (08/20/21 02:45) Fentanyl Inj (Sublimaze Injection) (08/20/21 02:45) Ct Abd/Pelv W (Appendicitis) (08/20/21 02:56) Iohexol Injection (Omnipaque 350 Mg/Ml 1 (08/20/21 03:30) Received Contrast (Hold Metformin- Contr (08/20/21 03:30) Ns (Ivpb) (Sodium Chloride 0.9% Ivpb Bag (08/20/21 03:30) Medications Given in ED Current Medications Medications Dose Ordered Sig/Adama Route Start Time Stop Time Status Last Admin Dose Admin Fentanyl Citrate 50 mcg ONCE ONCE IVP 08/20/21 02:45 08/20/21 02:46 DC 08/20/21 02:49 50 MCG Iohexol 100 ml ONCE ONCE IV 08/20/21 03:30 08/20/21 03:40 DC 08/20/21 03:30 100 ML Lactated Ringer's 1,000 ml @ 0 mls/hr Q0M ONCE IV 08/20/21 02:15 08/20/21 02:16 DC 08/20/21 02:23 999 MLS/HR Lactated Ringer's 1,000 ml @ 0 mls/hr Q0M ONCE IV 08/20/21 02:45 08/20/21 02:46 DC 08/20/21 02:49 999 MLS/HR Ondansetron HCl 4 mg ONCE ONCE IVP 08/20/21 02:15 08/20/21 02:16 DC 08/20/21 02:23 4 MG Pantoprazole 40 mg ONCE ONCE IV 08/20/21 02:15 08/20/21 02:16 DC 08/20/21 02:22 40 MG Sodium Chloride 100 ml ONCE ONCE IV 08/20/21 03:30 08/20/21 03:40 DC 08/20/21 03:30 80 ML Vital Signs/I&O 08/20/21 01:52 Temp 36.4 Pulse 93 Resp 20 B/P (MAP) 142/81 (101) Blood Pressure Mean: 101 Progress Progress Note : Progress Note GIVEN IV FLUIDS GIVEN ZOFRAN AND PROTONIX GIVEN FENTANYL FOR PAIN SEPSIS PROTOCOL INITIATED GIVEN ANTIBIOTICS NO DETERIORATION IN PT'S CONDITION DURING ER STAY Initial ECG Impression Date: Aug 20, 2021 Initial ECG Impression Time: 02:19 Initial ECG Rate: 94 Initial ECG Rhythm: Normal Sinus Diagnostic Imaging Comments CXR--NO ACUTE PROCESS, PENDING RADIOLOGIST REVIEW CT ABDOMEN/PELVIS--SMALL BOWEL ILEUS, AND LESS LIKELY OBSTRUCTION, SUSPECT ENTERITIS. PER [facility] VIA FAX AT [phone] Reviewed: Reviewed by Md Departure Communication (Admissions) [id number]--SPOKE WITH DR. ROBB, COVERING FOR DR. MCNULTY. ACCEPTS PT FOR ADMIT Impression Primary Impression: Sepsis Additional Impressions: Abdominal pain Gastroenteritis Ileus Dehydration Disposition: ADMITTED INPATIENT Condition: Improved Admissions Decision to Admit Reason: Admit from ER (General) Decision to Admit/Date: Aug 20, 2021 Time/Decision to Admit Time: 04:30 Departure-Patient Inst. Referrals: ANJEL MCNULTY DO (PCP/Family) Primary Care Physician LUCIANO LAL DO Aug 20, 2021 03:40
[2021-08-20] MEDS ORDERED: cefTRIAXone 1,000 MG in WATER (STERILE) FOR INJECTION 10 ML IV ONE (04:45)
[2021-08-20] MEDS ORDERED: ONDANSETRON 4 MG/2 ML (SDV) Z0FRAN IV PRN (06:15)
[2021-08-20] MEDS ORDERED: fentaNYL INJ 100 MCG/2 ML AMP IV PRN (06:15)
--- NOTE | 2021-08-20 06:42 | Diagnostic Imaging Report ---
Clinical Indication: Patient with sepsis. Exam: Portable chest x-ray upright view. Comparisons: CT scan of the abdomen and pelvis dated 08/20/2021. Findings: Lungs/pleura: Lungs are clear. There is no pneumothorax. There is no pleural effusion. Mediastinum: There is a lobulated area with convex border superiorly in the retrocardiac region which correlates to area of herniating intra-abdominal fat through the diaphragm hiatus. Pulmonary vasculature: Unremarkable. Heart: Unremarkable. Bones/extrathoracic soft tissue: Unremarkable. Impression: 1: There is no radiographic evidence of acute cardiopulmonary process. 2: Small lobulated area with superior convexity in the retrocardiac lower mediastinal region correlates to herniating intra-abdominal fat through the diaphragm hiatus. Dictated by: Dictated on workstation # [id number]
--- NOTE | 2021-08-20 06:42 | Diagnostic Imaging Report ---
PROCEDURE: CT abdomen and pelvis with contrast, rule out appendicitis. TECHNIQUE: Multiple contiguous axial images were obtained through the abdomen and pelvis after the administration of intravenous contrast. All CT scans use one or more of the following dose optimizing techniques: automated exposure control, MA and/or KvP adjustment based on patient size and exam type or iterative reconstruction. INDICATION: Right lower quadrant abdominal pain. COMPARISON: CT abdomen and pelvis 10/19/2008. FINDINGS: Several prominent caliber fluid filled small bowel loops without dilation or a focal transition point. Moderate amount of stool throughout the colon without dilation. No free intraperitoneal air or fluid. Normal appendix. Hysterectomy. The lung bases are clear. The liver, gallbladder, pancreas, spleen, adrenals, right kidney, collecting systems and bladder are negative. Simple appearing cyst in the left kidney. No acute osseous findings. IMPRESSION: Several prominent caliber fluid-filled small bowel loops without dilation or focal transition point. Findings are suspicious for an enteritis, possibly ileus. Normal caliber colon. Agree with preliminary interpretation. Dictated by: Dictated on workstation # [id number]
[2021-08-20] MEDS: D5 1/2 NS W/KCL 20 MEQ/L 1,000 ML IV SCH ×3 (06:45→17:09)
[2021-08-20 08:00] VITALS: BP 128/68
[2021-08-20] MEDS: PANTOPRAZOLE 40 MG (PROTONIX) VIAL IV SCH (08:43)
[2021-08-20] MEDS: metroNIDAZOLE 500 MG/100 ML IVPB (PRE-MIX) IV SCH ×2 (08:44→22:33)
--- NOTE | 2021-08-20 10:32 | History & Physical ---
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 THE PATIENT REPORTS THAT SHE HAS A HISTORY OF COPD, WAS STARTED ON A PREDNISONE TAPER WHICH SHE FINISHED YESTERDAY. SHE REPORTS RECEIVING THE MODERN VACCINE ON SATURDAY OR SATURDAY OF THIS PAST WEEK AND JUST LAST NIGHT SHE STARTED TO HAVE ABDOMINAL DISCOMFORT. SHE DOES NOT RECALL BEING AROUND ANYONE WITH GI ILLNESS, HAD NOT FELT ILL EXCEPT FOR AFTER HER MODERNA SHOT SHE HAD SOME NAUSEA. SHE DENIES DIZZINESS, CHEST PAIN, SHORTNESS OF BREATH. SHE REPORT HAVING A BOWEL MOVEMENT THIS MORNING. Date of Admission Aug 20, 2021 at 04:30 Date Seen by a Provider: Aug 20, 2021 Time Seen by a Provider: 10:00 Attending Physician Emily Mcnulty DO Admitting Physician SUNNY ROBB MD Consult Allergies and Home Medications Allergies Coded Allergies: amoxicillin (Verified Allergy, Mild, RASH, 05/11/19) Patient Home Medication List Home Medication List Reviewed: Yes Amlodipine Besylate (Amlodipine Besylate) 5 Mg Tablet, 5 MG PO DAILY, (Reported) Entered as Reported by: JUDY ANDREWS on 05/11/19 140 Last Action: Continued Budesonide/Formoterol Fumarate (Symbicort 160-4.5 Mcg Inhaler) 10.2 Gm Hfa.aer.ad, 2 PUFF IH BID, (Reported) Entered as Reported by: JUDY ANDREWS on 05/11/19 140 Last Action: Converted Bupropion HCl (Wellbutrin Sr) 150 Mg Tablet.er, 150 MG PO DAILY, (Reported) Entered as Reported by: JUDY ANDREWS on 05/11/191403 Last Action: Held Past Ypdsvnx-Hjslih-Qrwouo Hx Patient Social History Marrital Status: Living Status: LIVES IN [place] Employed/Student: retired Tobacco Use?: No Tobacco type used: Cigarettes Smoking Status: Former Smoker Use of E-Cig and/or Vaping dev: No Substance use?: No Alcohol Use?: No Pt feels they are or have been: No Immunizations Up To Date Date of Influenza Vaccine: Jul 28, 2018 First/Initial COVID19 Vaccinat: SPRING 2020 Second COVID19 Vaccination Stanislaw: SPRING 2020 Tetanus Booster (TDap): Less Than 5 Years Seasonal Allergies Seasonal Allergies: No Current Status status: No status: No Advance Directives: No Communicates: Verbally Primary Language: Georgian Preferred Spoken Language: Georgian Is interpretation needed?: No Sensory deficits: Vision impairment Implanted or Applied Medical D: None Past Medical History Surgeries: Hysterectomy, Oophorectomy, Tonsillectomy COPD Currently Using CPAP: No Currently Using BIPAP: No 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 Sexually Transmitted Disease: No HIV/AIDS: No Gastroesophageal Reflux Arthritis, Chronic Back Pain Tonsilitis Loss of Vision: Denies Hearing Impairment: Denies Blood Disorders: No Adverse Reaction/Blood Tranf: No (N/A) Family Medical History Reviewed and Corrections made Hypertension Review of Systems Constitutional: No chills, No fever, No malaise; weakness EENTM: No hoarseness, No throat pain Respiratory: No cough, No dyspnea on exertion; short of breath (CHRONIC) Cardiovascular: No chest pain, No edema, No palpitations Gastrointestinal: RUQ, LUQ, abdominal pain, constipation (THIS PAST WEEK); No diarrhea, No nausea, No vomiting Genitourinary: no symptoms reported Musculoskeletal: no symptoms reported Skin: no symptoms reported Psychiatric/Neurological: Denies Anxiety, Denies Depressed, Denies Weakness All Other Systems Reviewed Negative Unless Noted: Yes Physical Exam Vital Signs Vital Signs - First Documented 08/20/21 08/20/21 01:52 05:45 Temp 36.4 Pulse 93 Resp 20 B/P (MAP) 142/81 (101) Pulse Ox 92 O2 Delivery Room Air Capillary Refill : Less Than 3 Seconds Height, Weight, BMI Height: 4'11.00" Weight: 132lbs. 0.0oz. 59.718646vp; 31.81 BMI Method: General Appearance: No Apparent Distress, WD/WN Eyes: Bilateral Eye Normal Inspection, Bilateral Eye PERRL, Bilateral Eye EOMI HEENT: PERRL/EOMI, Pharynx Normal Neck: Full Range of Motion, Non Tender, Supple Respiratory: Chest Non Tender, Lungs Clear, Normal Breath Sounds, No Accessory Muscle Use, No Respiratory Distress Cardiovascular: Regular Rate, Rhythm, No Edema, No Murmur, Normal Peripheral Pulses Gastrointestinal: Soft, Tenderness (EPIGASTRIUM), Other (BOWEL SOUNDS ARE QUIET, BUT PRESENT) Rectal: Deferred Extremity: Normal Capillary Refill, Normal Range of Motion, Non Tender, No Calf Tenderness, No Pedal Edema Neurologic/Psychiatric: Alert, Oriented x3, No Motor/Sensory Deficits, Normal 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 - DID NOT CONSULT SURGEON AT THIS TIME, WILL MONITOR SYMPTOMS AND IF WORSENING - WILL THEN CONSULT SURGEON. NAUSEA AND EMESIS - IMPROVED, PRN ANTI-EMETICS LEUKOCYTOSIS - RECENT STEROID USE, MONITOR REPEAT LAB IN MORNING. CHRONIC HYPERTENSION - RESUME AMLODIPINE. SCD'S AND LOVENOX FOR DVT PROPHYLAXIS Admission Diagnosis ILEUS ABDOMINAL PAIN NAUSEA AND EMESIS LEUKOCYTOSIS CHRONIC HYPERTENSION Admission Status: Inpatient Order (span 2 midnights) Reason for Inpatient Admission: ANTICIPATE 48 HOURS IN THE HOSPITAL FOR STABILIZATION, MONITORING OF LABS AND GI TRACT SUNNY ROBB MD Aug 20, 2021 10:32
[2021-08-20 12:00] VITALS: BP 130/68
[2021-08-20] MEDS ORDERED: ENOXAPARIN 40 MG/0.4 ML (LOVENOX) SYR SC SCH (14:00)
--- NOTE | 2021-08-20 14:07 | Diagnostic Imaging Report ---
CLINICAL INDICATION: Patient with gastroenteritis and abdominal pain. EXAM: Right upper quadrant ultrasound. COMPARISON: CT scan of the abdomen and pelvis with contrast dated 08/20/2021. FINDINGS: Patient with body habitus and overlying bowel gas limits evaluation. Pancreas is unremarkable with normal echogenicity and configuration. The visualized abdominal aorta and IVC are unremarkable. The liver has normal echogenicity and echotexture. The liver surface is smooth. The liver measures 16.3 cm in craniocaudal dimension. The main portal vein demonstrates hepatopetal flow. There is no liver mass. There is no intrahepatic or extrahepatic ductal dilation. The common bile duct measures 4 mm. The gallbladder is mildly to moderately fluid-filled. There is no stones or sludge. There is no sonographic Gates sign. The right kidney shows no hydronephrosis or mass. The right kidney measures 9.5 cm in craniocaudal dimension. There is no abdominal ascites. The spleen has normal echogenicity with no mass. Spleen measures 9.2 cm in craniocaudal dimension. The left kidney is small in size. Previously described left renal cyst was not able to be visualized on this exam. The left kidney is partially obscured by bowel gas. There is no hydronephrosis or mass and it measures 8.1 cm in craniocaudal dimension. There is no abdominal ascites. IMPRESSION: 1: There is a small left kidney. Previously described left renal cysts is unable to be visualized on this exam. Left kidney is partially obscured by bowel gas. 2: Otherwise, the remainder of this exam is unremarkable with no acute abnormality. Dictated by: Dictated on workstation # [id number]
[2021-08-20] MEDS: ACETAMINOPHEN 325 MG TABLET PO PRN (14:48)
[2021-08-20 15:50] VITALS: BP 120/65
[2021-08-20 19:41] VITALS: BP 133/72
[2021-08-20] MEDS: RT--FLUTICASONE/SALMETEROL 232-14 (AIRDUO RespiCLICK) IH SCH (20:05)
[2021-08-21] VITALS: BP 106/68
[2021-08-21] MEDS: D5 1/2 NS W/KCL 20 MEQ/L 1,000 ML IV SCH ×2 (00:58→09:42)
[2021-08-21] MEDS: ACETAMINOPHEN 325 MG TABLET PO PRN ×2 (00:58→09:56)
[2021-08-21 04:29] VITALS: BP 127/77
[2021-08-21 05:18] LABS: BASOPHILS # (AUTO) 0.1 10^3/uL (0.0-0.1); BASOPHILS % (AUTO) 1 % (0-10); EOSINOPHILS # (AUTO) 0.3 10^3/uL (0.0-0.3); EOSINOPHILS % (AUTO) 3 % (0-10); HEMATOCRIT 39 % (35-52); HEMOGLOBIN 12.5 g/dL (11.5-16.0); LYMPHOCYTES # (AUTO) 2.8 10^3/uL (1.0-4.0); LYMPHOCYTES % (AUTO) 33 % (12-44); MEAN CORPUSCULAR HEMOGLOBIN 29 pg (25-34); MEAN CORPUSCULAR HGB CONC 32 g/dL (32-36); MEAN CORPUSCULAR VOLUME 89 fL (80-99); MEAN PLATELET VOLUME 8.8 fL (9.0-12.2); MONOCYTES % (AUTO) 12 % (0-12); NEUTROPHILS # (AUTO) 4.3 10^3/uL (1.8-7.8); NEUTROPHILS % (AUTO) 51 % (42-75); PLATELET COUNT 270 10^3/uL (130-400); WHITE BLOOD COUNT 8.6 10^3/uL (4.3-11.0)
[2021-08-21 05:34] LABS: CALCIUM 8.1 MG/DL (8.5-10.1)
[2021-08-21 05:38] LABS: CREATININE SERUM 0.66 MG/DL (0.60-1.30)
[2021-08-21] MEDS ORDERED: cefTRIAXone 1,000 MG/SWFI 10 ML IV PUSH IV SCH ×2 (06:00)
[2021-08-21 08:00] VITALS: BP 131/67
[2021-08-21] MEDS ORDERED: amLODIPine 5 MG (NORVASC) TAB PO SCH (09:00)
[2021-08-21] MEDS: PANTOPRAZOLE 40 MG (PROTONIX) VIAL IV SCH (09:42)
[2021-08-21] MEDS: RT--FLUTICASONE/SALMETEROL 232-14 (AIRDUO RespiCLICK) IH SCH (09:42)
[2021-08-21] MEDS: metroNIDAZOLE 500 MG/100 ML IVPB (PRE-MIX) IV SCH (09:42)
[2021-08-21] MEDS ORDERED: ALBU18HF2 INH (10:06)
[2021-08-21] MEDS ORDERED: PANT40TA52 PO (11:03)
[2021-08-21] MEDS ORDERED: HYOS0.1283 SL (11:03)
--- NOTE | 2021-08-21 12:18 | Discharge Summary ---
Diagnosis/Chief Complaint Date of Admission Aug 20, 2021 at 04:30 Date of Discharge Aug 21, 2021 at 11:30 Discharge Date: Aug 21, 2021 Discharge Diagnosis 1. Acute Gastroenteritis with Mild Ileus--improved 2. Leukocytosis due to recent steroid use--resolved 3. COPD with recent exacerbation--improved 4. Hypertension--stable Discharge Summary Hospital Course Was the Problem List Reviewed?: Yes Hospital Course This is a 60 year old female with known COPD and recent exacerbation who was admitted after she had sudden onset of abdominal pain with nausea and vomiting. Her WBC count was elevated but she had just finished steroids for a COPD exacerbation. She also had the Moderna booster about 3 days prior to her symptoms. Her CT scan showed a enteritis with possible ileus. She was admitted to the medical floor and started on clear liquids. She was given IVF rehydration. She was given IV protonix as well as IV zofran prn. She did have bowel movements and by the morning of 08/21/21, her abdominal pain was improved. She was tolerating clear liquids with no nausea or vomiting. Her WBC count was down to 8.6 and she was anxious to go home. She will be sent home on a soft diet for the next few days and continue on protonix with levsin prn. She will follow up with me in 1 week. Labs Laboratory Tests 08/20/21 02:10: Urine Crystals PRESENTH, Urine Calcium Oxalate Crystals LARGEH, Urine Mucus MODERATEH 08/20/21 02:16: White Blood Count 25.7H, Red Blood Count 5.48H, Platelet Count 421H, Mean P latelet Volume 8.6L, Neutrophils # (Auto) 17.8H, Lymphocytes # (Auto) 4.9H, Monocytes # (Auto) 2.3H, Immature Granulocyte # (Auto) 0.3H, Blood Urea Nitrogen 28H, Glucose Level 154H, C-Reactive Protein High Sensitivity 0.73H 08/20/21 02:50: 08/21/21 05:09: Mean Platelet Volume 8.8L, Blood Urea Nitrogen 6L, Glucose Level 109H, Calcium Level 8.1L Procedures None. Discharge Physical Examination Allergies: Coded Allergies: amoxicillin (Verified Allergy, Mild, RASH, 05/11/19) Vitals & I&Os Vital Signs Date Time Temp Pulse Resp B/P (MAP) Pulse Ox O2 Delivery O2 Flow Rate FiO2 08/21/21 11:24 08/21/21 10:20 96 Room Air 08/21/21 08:00 36.4 84 20 General Appearance: Alert, Oriented X3, No Acute Distress Cardiovascular: Regular Rate Abdominal: Normal Bowel Sounds, Soft, No Tenderness Extremities: No Clubbing, No Cyanosis, No Edema Psych/Mental Status: Mental Status NL, Mood NL Discharge Home Medications Reviewed and agree with Discharge Medication list on patient's Discharge Instruction sheet Instructions to Patient/Family Please see electronic discharge instructions given to patient. ANJEL MCNULTY DO Aug 21, 2021 12:18
== END 2021-08-21 11:30 | disposition home or self-care (01) | DRG 392 ==
LOC: EDUNIT# 01:35 → ER 01:39 → 4TH 04:30
PROVIDERS: ADMIT Family Medicine; ATTEND Family Medicine
DX: K52.9 Noninfective gastroenteritis and colitis, unspecified (principal); K56.7 Ileus, unspecified; E86.0 Dehydration; J44.9 Chronic obstructive pulmonary disease, unspecified; I10 Essential (primary) hypertension; K21.9 Gastro-esophageal reflux disease without esophagitis; M19.91 Primary osteoarthritis, unspecified site; Z87.891 Personal history of nicotine dependence; Z88.1 Allergy status to other antibiotic agents; D72.828 Other elevated white blood cell count; T38.0X5A Adverse effect of glucocorticoids and synthetic analogues, initial encounter
CPT/HCPCS: 36415; 71045; 74177; 76700; 80048; 80053; 81000; 82150; 83605; 83690; 83735; 84145; 84484; 84550; 85007; 85025; 85027; 85652; 86141; 87040; 93005; 93041; 94640; 94760

== ENCOUNTER 2023-02-16 06:01 | Emergency (ER) | payer BC, MEDICARE ==
[~2023-02-16] VITALS: Ht 152 cm; Wt 72.6 kg
[~2023-02-16 06:01] MED LIST changes: +ALBU18HF2 INH; +HYOS0.1283 SL; +PANT40TA52 PO
--- NOTE | 2023-02-16 06:32 | ED Chest Pain ---
General Chief Complaint: Respiratory Problems Stated Complaint: SOB,DIZZY,CONGESTION Nursing Triage Note: c/o dizziness x3 days, soa/headache/wheezing today. Source: patient Exam Limitations: no limitations History of Present Illness Date Seen by Provider: Feb 16, 2023 Time Seen by Provider: 06:08 Initial Comments This 62-year-old woman with COPD presents to the emergency room via private vehicle with complaints of congestion, wheezing, shortness of breath, pain in the back of her neck, right-sided chest pain (now gone), and a numb sensation in her chest described as "numb and felt heat going through my body." She denies any fever or GI symptoms. She did use her nebulizer yesterday with benefit. She also reports "[place]." Her primary care provider is Dr. Hummel, and her manager search engine is Dr. Monteiro. She uses maintenance inhalers as well. She is a former smoker. Symptoms have been present for 3 days. Patient states this present syndrome feels different than her usual COPD exacerbations. Allergies and Home Medications Allergies Coded Allergies: amoxicillin (Verified Allergy, Mild, RASH, 05/11/19) Patient Home Medication List Home Medication List Reviewed: Yes Albuterol Sulfate (Ventolin Hfa) 18 Gm Hfa.aer.ad, 2 PUFF INH Q6H PRN for SHORTNESS OF BREATH, (Reported) Entered as Reported by: RAJ SAMANIEGO on 08/21/21 1006 Amlodipine Besylate (Amlodipine Besylate) 5 Mg Tablet, 5 MG PO DAILY, (Reported) Entered as Reported by: JUDY ANDREWS on 05/11/19 1404 Budesonide/Formoterol Fumarate (Symbicort 160-4.5 Mcg Inhaler) 10.2 Gm Hfa.aer.ad, 2 PUFF IH BID, (Reported) Entered as Reported by: JUDY ANDREWS on 05/11/19 1404 Bupropion HCl (Wellbutrin Sr) 150 Mg Tablet.er, 150 MG PO 0700,1600, (Reported) Entered as Reported by: JUDY ANDREWS on 05/11/19 1404 Hyoscyamine Sulfate (Levsin-Sl) 0.125 Mg Tab.subl, 0.125 MG SL QID Prescribed by: ANJEL HUMMEL on 08/21/21 1103 Pantoprazole Sodium (Pantoprazole Sodium) 40 Mg Tablet.dr, 40 MG PO DAILY Prescribed by: ANJEL HUMMEL on 08/21/21 110 Sucralfate (Carafate) 1 Gram Tablet, 1 GM PO QID Prescribed by: ADELINA COLMENARES on 02/16/23 0922 Review of Systems Review of Systems Constitutional: no symptoms reported EENTM: See HPI Respiratory: See HPI Cardiovascular: See HPI Gastrointestinal: No Symptoms Reported Genitourinary: No Symptoms Reported Musculoskeletal: no symptoms reported Skin: no symptoms reported Psychiatric/Neurological: No Symptoms Reported Endocrine: No Symptoms Reported Hematologic/Lymphatic: No Symptoms Reported Past Vsvfooa-Mntezb-Kjbcgv Hx Patient Social History Tobacco Use?: No Smoking Status: Former Smoker Substance use?: No Alcohol Use?: No Pt feels they are or have been: No Immunizations Up To Date Tetanus Booster (TDap): Unknown First/Initial COVID19 Vaccinat: x3 Second COVID19 Vaccination Stanislaw: SPRING 2020 Seasonal Allergies Seasonal Allergies: No Past Medical History Surgery/Hospitalization HX: copd, htn, gerd, ch. back pain. 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: Endometriosis IN HOME AIDE History: Hysterectomy Sexually Transmitted Disease: No HIV/AIDS: No Genitourinary: No Gastrointestinal: Yes (DYSPHAGIA) Gastroesophageal Reflux Musculoskeletal: Yes Arthritis, Chronic Back Pain Endocrine: No HEENT: Yes (READING GLASSES, DENTURES) Tonsilitis Loss of Vision: Denies Hearing Impairment: Denies Cancer: No Psychosocial: No Integumentary: No Blood Disorders: No Adverse Reaction/Blood Tranf: No (N/A) Family Medical History Hypertension Physical Exam Vital Signs Vital Signs - First Documented Capillary Refill : Less Than 3 Seconds Height, Weight, BMI Height: 4'11.00" Weight: 132lbs. 0.0oz. 59.405107ho; 31.00 BMI Method: General Appearance: No Apparent Distress, WD/WN HEENT: PERRL/EOMI, Normal ENT Inspection, Other (Oropharynx somewhat dry) Neck: Normal Inspection; No JVD Respiratory: No Accessory Muscle Use, No Respiratory Distress, Crackles (Throughout the right chest), Wheezing (With forced expiration only) Cardiovascular: Regular Rate, Rhythm, No Edema, No Murmur Extremity: Normal Inspection, Non Tender, No Calf Tenderness, No Pedal Edema Neurologic/Psychiatric: Alert, Oriented x3, No Motor/Sensory Deficits, Normal Mood/Affect Skin: Normal Color, Warm/Dry Progress/Results/Core Measures Results/Orders Lab Results Laboratory Tests Test 02/16/23 06:23 02/16/23 06:35 Range/Units Influenza Type A (RT-PCR) Not Detected Not Detecte Influenza Type B (RT-PCR) Not Detected Not Detecte SARS-CoV-2 RNA (RT-PCR) Not Detected Not Detecte White Blood Count 8.9 4.3-11.0 10^3/uL Red Blood Count 5.12 H 3.80-5.11 10^6/uL Hemoglobin 15.1 11.5-16.0 g/dL Hematocrit 45 35-52 % Mean Corpuscular Volume 88 80-99 fL Mean Corpuscular Hemoglobin 30 25-34 pg Mean Corpuscular Hemoglobin Concent 34 32-36 g/dL Red Cell Distribution Width 13.4 10.0-14.5 % Platelet Count 325 130-400 10^3/uL Mean Platelet Volume 9.0 9.0-12.2 fL Immature Granulocyte % (Auto) 0 % Neutrophils (%) (Auto) 54 42-75 % Lymphocytes (%) (Auto) 35 12-44 % Monocytes (%) (Auto) 8 0-12 % Eosinophils (%) (Auto) 2 0-10 % Basophils (%) (Auto) 1 0-10 % Neutrophils # (Auto) 4.8 1.8-7.8 10^3/uL Lymphocytes # (Auto) 3.1 1.0-4.0 10^3/uL Monocytes # (Auto) 0.7 0.0-1.0 10^3/uL Eosinophils # (Auto) 0.1 0.0-0.3 10^3/uL Basophils # (Auto) 0.1 0.0-0.1 10^3/uL Immature Granulocyte # (Auto) 0.0 0.0-0.1 10^3/uL Prothrombin Time 12.2 12.2-14.7 SEC INR Comment 0.9 0.8-1.4 Activated Partial Thromboplast Time 27 24-35 SEC Sodium Level 139 135-145 MMOL/L Potassium Level 3.9 3.6-5.0 MMOL/L Chloride Level 104 98-107 MMOL/L Carbon Dioxide Level 23 21-32 MMOL/L Anion Gap 12 5-14 MMOL/L Blood Urea Nitrogen 9 7-18 MG/DL Creatinine 0.71 0.60-1.30 MG/DL Estimat Glomerular Filtration Rate 96 BUN/Creatinine Ratio 13 Glucose Level 108 H 70-105 MG/DL Calcium Level 9.3 8.5-10.1 MG/DL Corrected Calcium 9.2 8.5-10.1 MG/DL Magnesium Level 2.2 1.6-2.4 MG/DL Total Bilirubin 0.4 0.1-1.0 MG/DL Aspartate Amino Transf (AST/SGOT) 18 5-34 U/L Alanine Aminotransferase (ALT/SGPT) 24 0-55 U/L Alkaline Phosphatase 119 40-136 U/L Myoglobin 24.3 10.0-92.0 NG/ML Troponin I < 0.028 <0.028 NG/ML C-Reactive Protein High Sensitivity 0.46 0.00-0.50 MG/DL B-Type Natriuretic Peptide 16.6 <100.0 PG/ML Total Protein 7.0 6.4-8.2 GM/DL Albumin 4.1 3.2-4.5 GM/DL My Orders Orders - ADELINA COOPER MD Covid 19 Inhouse Test (02/16/23 06:08) Influenza A And B By Pcr (02/16/23 06:08) Cbc With Automated Diff (02/16/23 06:26) Magnesium (02/16/23 06:26) Ekg Tracing (02/16/23 06:26) Comprehensive Metabolic Panel (02/16/23 06:26) Myoglobin Serum (02/16/23 06:26) Protime With Inr (02/16/23 06:26) Partial Thromboplastin Time (02/16/23 06:26) Monitor-Rhythm Ecg Trace Only (02/16/23 06:26) Ed Iv/Invasive Line Start (02/16/23 06:26) Bnp Catrachito (02/16/23 06:26) Troponin I Luna (02/16/23 06:26) Hs C Reactive Protein (02/16/23 06:26) Chest Pa/Lat (2 View) (02/16/23 06:27) Ondansetron Injection (Zofran Injectio (02/16/23 08:00) Lidocaine 2% Viscous 15 Ml (Xylocaine Vi (02/16/23 08:00) Antacid Suspension (Mylanta Suspension (02/16/23 08:00) Medications Given in ED Vital Signs/I&O 02/16/23 02/16/23 02/16/23 06:10 06:10 09:30 Temp 36.5 36.5 Pulse 91 81 Resp 22 18 B/P (MAP) 167/94 (118) 122/89 Pulse Ox 95 96 O2 Delivery Room Air Room Air Room Air Blood Pressure Mean: 118 Progress Progress Note #1: Time: 06:37 Progress Note Patient was interviewed and examined. She does not feel like she needs a breathing treatment at this time. Crackles were heard in the right lung, and pneumonia is suspected. Patient also describes some chest discomfort. We will obtain the chest pain panel as well as a CRP and BNP to help differentiate her shortness of breath and chest discomfort. Labs and two-view chest x-ray are pending. EKG was interpreted by me and was unremarkable for ischemic changes or arrhythmia. Progress Note #2: Progress Note Work-up was unremarkable. Two-view chest x-ray was viewed by me and no infiltrates, consolidation, or edema was noted. Radiologist reported no acute abnormalities. Labs were reviewed in their entirety including CBC, CMP, troponin, CRP, BNP and magnesium. No abnormalities were appreciated. Patient complained of a burning in her chest which she thought was acid reflux. Zofran and GI cocktail was administered with significant improvement in her discomfort. COPD exacerbation seems stable with bronchodilator treatment alone. Steroids will be avoided at this time as they are likely to worsen her GI symptoms. Pneumonia was not identified on chest x-ray. CRP, WBC, and temperature were all normal suggesting against the presence of pneumonia. See discharge instructions for further discussion. Initial ECG Impression Date: Feb 16, 2023 Initial ECG Impression Time: 06:30 Initial ECG Rate: 88 Initial ECG Rhythm: Normal Sinus Initial ECG Intervals: Normal Initial ECG Impression: Normal Comment Sinus rhythm with no ST elevation or depression. No abnormal intervals or axis deviation. Diagnostic Imaging Diagonstic Imaging: Xray Plain Films/CT/US/NM/MRI: chest Comments NAME: [facility] REC#: [id number] PT STATUS: DEP ER : 1960 PHYSICIAN: ADELINA COOPER MD ADMIT DATE: 02/16/23/ER Signed Date of Exam:02/16/23 CHEST PA/LAT (2 VIEW) INDICATION: Dyspnea and chest pain. COMPARISON: 08/20/2021. DISCUSSION: Two views of the chest were obtained. Eventration of the left hemidiaphragm is stable. Normal heart size. No consolidation, pleural fluid, or pneumothorax. No osseous abnormality. IMPRESSION: 1. Negative chest. Dictated by: Dictated on workstation # [id number] Dict: 02/16/23 0732 Trans: 02/16/23 1513 CVB [id number] Interpreted by: LINDA BAUMAN MD Electronically signed by: LINDA BAUMAN MD 02/16/23 1513 Departure Impression Primary Impression: COPD exacerbation Disposition: 01 HOME, SELF-CARE Condition: Improved Departure-Patient Inst. Decision time for Depature: 09:17 Referrals: ANJEL HUMMEL DO (PCP/Family) Primary Care Physician Patient Instructions: Acid Reflux and GERD in Adults (DC), COPD Exacerbation, Adult ED Add. Discharge Instructions: Keep your appointment with your manager search engine and continue using your inhaled medications as prescribed until then. You may continue using Tagamet. Consider changing to a different antacid such as omeprazole 20 mg once or twice daily and use consistently every day until you follow-up with your doctor and discuss further. Add Carafate (sucralfate). Take this medication at least 30 minutes before eating and drinking at mealtimes and then again at bedtime. It works best if made into a slurry by soaking or crushing and mixing into a small amount of water. Alternatively, you may chew it up and swallow it. Steroids are not being prescribed at this time due to your stomach and esophagus irritation (heartburn). There is no evidence of pneumonia on your work-up in the ER today. If Carafate does not help your heartburn, discuss using an antiyeast medication with your manager search engine on Saturday. You may have developed yeast in your throat and esophagus due to inhaled steroid use. Be sure to rinse your mouth after using the steroids. To avoid worsening acid reflux, avoid the following: Eating close to bedtime, large meals, caffeine, carbonation, chocolate, citrus fruits and juices, tomato products, mints, spicy foods, fatty/greasy foods, NSAID medications such as ibuprofen or naproxen, alcohol, tobacco, and anything else you know irritates your stomach. It may be beneficial to sleep with your head in an elevated position to allow gravity to work against acid reflux. Call or return to care if you have worsening symptoms or other concerns. In addition to your appointment with your manager search engine, please schedule follow- up appointment with your primary care provider. All discharge instructions reviewed with patient and/or family. Voiced understanding. Scripts Sucralfate (Carafate) 1 Gram Tablet 1 GM PO QID, #120 TAB Soak or crush and dissolve in 5-10 mL water to make slurry. Alternatively may chew. Take 30 min before eating and drinking and again at bedtime. Prov: ADELINA COOPER MD 02/16/23 Copy Copies To 1: ANJEL HUMMEL JOSHUA T MD Feb 16, 2023 06:32
[2023-02-16 06:46] LABS: BASOPHILS # (AUTO) 0.1 10^3/uL (0.0-0.1); BASOPHILS % (AUTO) 1 % (0-10); EOSINOPHILS # (AUTO) 0.1 10^3/uL (0.0-0.3); EOSINOPHILS % (AUTO) 2 % (0-10); HEMATOCRIT 45 % (35-52); HEMOGLOBIN 15.1 g/dL (11.5-16.0); LYMPHOCYTES # (AUTO) 3.1 10^3/uL (1.0-4.0); LYMPHOCYTES % (AUTO) 35 % (12-44); MEAN CORPUSCULAR HEMOGLOBIN 30 pg (25-34); MEAN CORPUSCULAR HGB CONC 34 g/dL (32-36); MEAN CORPUSCULAR VOLUME 88 fL (80-99); MONOCYTES # (AUTO) 0.7 10^3/uL (0.0-1.0); MONOCYTES % (AUTO) 8 % (0-12); NEUTROPHILS # (AUTO) 4.8 10^3/uL (1.8-7.8); NEUTROPHILS % (AUTO) 54 % (42-75); PLATELET COUNT 325 10^3/uL (130-400); WHITE BLOOD COUNT 8.9 10^3/uL (4.3-11.0)
[2023-02-16 07:01] LABS: ALBUMIN 4.1 GM/DL (3.2-4.5); POTASSIUM 3.9 MMOL/L (3.6-5.0)
[2023-02-16 07:02] LABS: CALCIUM 9.3 MG/DL (8.5-10.1)
[2023-02-16 07:03] LABS: INR 0.9 (0.8-1.4); PROTHROMBIN TIME PATIENT 12.2 SEC (12.2-14.7)
[2023-02-16 07:05] LABS: BILIRUBIN,TOTAL 0.4 MG/DL (0.1-1.0)
[2023-02-16 07:07] LABS: CREATININE SERUM 0.71 MG/DL (0.60-1.30)
[2023-02-16 07:10] LABS: MAGNESIUM 2.2 MG/DL (1.6-2.4)
--- NOTE | 2023-02-16 07:33 | Diagnostic Imaging Report ---
INDICATION: Dyspnea and chest pain. COMPARISON: 08/20/2021. DISCUSSION: Two views of the chest were obtained. Eventration of the left hemidiaphragm is stable. Normal heart size. No consolidation, pleural fluid, or pneumothorax. No osseous abnormality. IMPRESSION: 1. Negative chest. Dictated by: Dictated on workstation # [id number]
[2023-02-16] MEDS ORDERED: ONDANSETRON 4 MG/2 ML (SDV) Z0FRAN IVP ONE (08:00)
[2023-02-16] MEDS ORDERED: ANTACID SUSP 30 ML UDC (MYLANTA) PO ONE (08:00)
[2023-02-16] MEDS ORDERED: LIDOCAINE 2% VISCOUS 15 ML UDC PO ONE (08:00)
[2023-02-16] MEDS ORDERED: SUCR1TAB36 PO (09:22)
[2023-02-16 09:30] VITALS: BP 122/89
[2023-02-17] MEDS ORDERED: AZIT250T12 PO (13:27)
[2023-02-17] MEDS ORDERED: PRD20T PO (13:27)
== END 2023-02-16 09:29 | disposition home or self-care (01) ==
LOC: EDUNIT# 06:01 → ER 06:05
DX: J44.1 Chronic obstructive pulmonary disease with (acute) exacerbation (principal); Z87.891 Personal history of nicotine dependence; Z79.51 Long term (current) use of inhaled steroids; Z20.822 Contact with and (suspected) exposure to COVID-19
CPT/HCPCS: 36415; 71046; 80053; 83735; 83874; 83880; 84484; 85025; 85610; 85730; 86141; 87636; 93005; 93041

== ENCOUNTER → 2023-04-01 | Outpatient (CLI) | payer MEDICARE ==
[~2023-04-01] MED LIST changes: +AZIT250T12 PO; +PRD20T PO; +SUCR1TAB36 PO
--- NOTE | 2023-04-01 17:57 | Diagnostic Imaging Report ---
EXAMINATION: Left hand, single view. Left fourth finger radiographs, 2 views. COMPARISON: None. HISTORY: 62-year-old female, fall. Fourth finger pain. FINDINGS: There is no acute fracture. There is no cortical or aggressive bone destruction. Joint spaces are well preserved. There is no radiopaque foreign body. IMPRESSION: 1. No identified acute bony abnormalities left hand or fourth finger. Dictated by: Dictated on workstation # [id number]
== END ==
LOC: RAD 13:37
PROVIDERS: ATTEND Family Medicine
DX: M25.542 Pain in joints of left hand (principal)
CPT/HCPCS: 73140

== ENCOUNTER → 2023-05-01 | Outpatient (CLI) | payer MEDICARE ==
[~2023-05-01] MED LIST changes: +RT-ALBUTEROL SULF 2.5 MG/3 ML PRE-MIX VIAL INH ONE
--- NOTE | 2023-05-01 10:33 | Diagnostic Imaging Report ---
EXAMINATION: CT chest without contrast (lung screening). TECHNIQUE: Multiple contiguous axial images were obtained through the chest without the use of intravenous contrast according to lung cancer screening protocol. All CT scans use one or more of the following dose optimizing techniques: automated exposure control, MA and/or KvP adjustment based on patient size and exam type or iterative reconstruction. HISTORY: 36 pack year history of smoking. COMPARISON: 07/26/2021 FINDINGS: There is no edema or pneumonia. No pleural effusion. No pneumothorax. No suspicious nodules. Lungs are moderately emphysematous. There is no axillary or supraclavicular lymphadenopathy. There is no mediastinal lymphadenopathy. Heart size is normal. There are mild coronary artery calcifications. No pericardial effusion. Aorta is normal in caliber. Limited views of the upper abdomen are unremarkable. There are no suspicious osseous lesions. IMPRESSION: 1. No suspicious pulmonary nodules. LUNG-RADS CATEGORY: 1 MODIFIER: None. Dictated by: Dictated on workstation # [id number]
== END ==
LOC: RT 07:38
PROVIDERS: ATTEND Nurse Practitioner Family
DX: J44.9 Chronic obstructive pulmonary disease, unspecified (principal); Z87.891 Personal history of nicotine dependence
CPT/HCPCS: 71271; 94060; 94621; 94726; 94729

== ENCOUNTER → 2023-07-08 | Outpatient (CLI) | payer MEDICARE ==
[~2023-07-08] MED LIST changes: -RT-ALBUTEROL SULF 2.5 MG/3 ML PRE-MIX VIAL INH ONE
--- NOTE | 2023-07-08 12:56 | Diagnostic Imaging Report ---
INDICATION: Routine screening. Comparison is made with prior mammogram from 03/23/2021 and 04/16/2019. 2-D and 3-D bilateral screening mammography was performed with CAD. The current study was also evaluated with a Computer Aided Detection (CAD) system. Scattered fibroglandular densities are identified bilaterally. Bilateral nodules appears stable. No spiculated mass or malignant-appearing microcalcifications are seen. Axillae are unremarkable. A biopsy marker clip in the right breast is again noted. IMPRESSION: BI-RADS Category 2 No mammographic features suspicious for malignancy are identified. ACR BI-RADS Category 2: Benign findings. Result letter will be mailed to the patient. Note: At least 10% of breast cancer is not imaged by mammography. Dictated by: Dictated on workstation # [id number]
== END ==
LOC: RAD 09:45
PROVIDERS: ATTEND Family Medicine
DX: Z12.31 Encounter for screening mammogram for malignant neoplasm of breast (principal)
CPT/HCPCS: 77063; 77067

== ENCOUNTER 2023-07-23 21:13 | Emergency (ER) | payer MEDICARE ==
[~2023-07-23] VITALS: Ht 152.4 cm; Wt 82.0 kg
[2023-07-23] MEDS ORDERED: ASPIRIN 81 MG CHEWABLE TABLET PO ONE (21:30)
[2023-07-23] MEDS: NITROGLYCERIN 0.4 MG SL TABLETS BTL 25'S SL PRN ×2 (21:31→21:41)
[2023-07-23 21:37] LABS: BASOPHILS # (AUTO) 0.1 10^3/uL (0.0-0.1); BASOPHILS % (AUTO) 1 % (0-10); EOSINOPHILS % (AUTO) 0 % (0-10); HEMATOCRIT 43 % (35-52); HEMOGLOBIN 14.2 g/dL (11.5-16.0); LYMPHOCYTES # (AUTO) 5.5 10^3/uL (1.0-4.0); LYMPHOCYTES % (AUTO) 26 % (12-44); MEAN CORPUSCULAR HEMOGLOBIN 29 pg (25-34); MEAN CORPUSCULAR HGB CONC 33 g/dL (32-36); MEAN CORPUSCULAR VOLUME 89 fL (80-99); MEAN PLATELET VOLUME 8.7 fL (9.0-12.2); MONOCYTES # (AUTO) 1.9 10^3/uL (0.0-1.0); MONOCYTES % (AUTO) 9 % (0-12); NEUTROPHILS # (AUTO) 13.4 10^3/uL (1.8-7.8); NEUTROPHILS % (AUTO) 63 % (42-75); PLATELET COUNT 411 10^3/uL (130-400); WHITE BLOOD COUNT 21.3 10^3/uL (4.3-11.0)
--- NOTE | 2023-07-23 21:47 | ED Chest Pain ---
General Chief Complaint: Chest Pain Stated Complaint: CHEST PAIN, RADTIATING TO BACK AND ABD, DIZZY Nursing Triage Note: PT TO ED WITH C/O CHEST PRESSURE FOR ABOUT 30 MINUTES SINCE SHE TOOK HER EVENING MEDICATIONS AND ATE SOME YOGURT. STATES PAIN RADIATES THROUGH TO HER BACK Source: patient, family Exam Limitations: no limitations History of Present Illness Date Seen by Provider: Jul 23, 2023 Time Seen by Provider: 21:15 Initial Comments Here with acute onsets of chest pain on the left side at the level of the breast that started 30 minutes prior to arrival. She reports that she took her Augmentin and prednisone that she is taking for her COPD exacerbation and cough. She has been on azithromycin and that did not resolve the symptoms and was recently started on Augmentin. Aside from the recent cough and COPD problems, she reports some stomach upset after taking the Augmentin. Denies fevers, sweating, vomiting or weakness. She has no heart history and has not had work up for her heart. Timing/Duration: 1/2 hour Severity/Quality: moderate, pressure, tightness Location: central (Sided) Radiation: epigastric Activities at Onset: none Prior CP/Workup: no prior cardiac workup Modifying Factors: improves with rest ASA po YEAST WASHER: No NTG SL YEAST WASHER: No Associated Symptoms: abdominal pain; No back pain, No diaphoresis; nausea/vomiting; No shortness of breath Allergies and Home Medications Allergies Coded Allergies: amoxicillin (Verified Allergy, Mild, RASH, 05/11/19) Patient Home Medication List Home Medication List Reviewed: Yes Albuterol Sulfate (Ventolin Hfa) 18 Gm Hfa.aer.ad, 2 PUFF INH Q6H PRN for SHORTNESS OF BREATH, (Reported) Entered as Reported by: RAJ SAMANIEGO on 08/21/21 1006 Amlodipine Besylate (Amlodipine Besylate) 5 Mg Tablet, 5 MG PO DAILY, (Reported) Entered as Reported by: JUDY ANDREWS on 05/11/19 1404 Azithromycin (Azithromycin) 250 Mg Tablet, 250 MG PO UD Prescribed by: ADELINA COLMENARES on 02/17/23 1327 Budesonide/Formoterol Fumarate (Symbicort 160-4.5 Mcg Inhaler) 10.2 Gm Hfa.aer.ad, 2 PUFF IH BID, (Reported) Entered as Reported by: JUDY ANDREWS on 05/11/19 1404 Bupropion HCl (Wellbutrin Sr) 150 Mg Tablet.er, 150 MG PO 0700,1600, (Reported) Entered as Reported by: JUDY ANDREWS on 05/11/19 1404 Hyoscyamine Sulfate (Levsin-Sl) 0.125 Mg Tab.subl, 0.125 MG SL QID Prescribed by: ANJEL HUMMEL on 08/21/21 1103 Pantoprazole Sodium (Pantoprazole Sodium) 40 Mg Tablet.dr, 40 MG PO DAILY Prescribed by: ANJEL HUMMEL on 08/21/21 1103 Prednisone (Prednisone) 20 Mg Tab, 40 MG PO DAILY Prescribed by: ADELINA COLMENARES on 02/17/23 1327 Sucralfate (Carafate) 1 Gram Tablet, 1 GM PO QID Prescribed by: ADELINA COLMENARES on 02/16/23 0922 Review of Systems Review of Systems Constitutional: see HPI; No chills, No fever EENTM: No Nose Congestion, No Throat Pain Respiratory: Cough, Shortness of Air Cardiovascular: Chest Pain; Denies Edema Gastrointestinal: See HPI Genitourinary: No Symptoms Reported Musculoskeletal: No back pain Skin: no symptoms reported Psychiatric/Neurological: No Symptoms Reported Past Prnjflc-Qikryr-Gowjda Hx Patient Social History Tobacco Use?: No Tobacco type used: Cigarettes Smoking Status: Former Smoker Substance use?: No Alcohol Use?: No Immunizations Up To Date Tetanus Booster (TDap): Unknown First/Initial COVID19 Vaccinat: x3 Second COVID19 Vaccination Stanislaw: x3 Third COVID19 Vaccination Date: x3 Seasonal Allergies Seasonal Allergies: No Past Medical History Surgery/Hospitalization HX: copd, htn, gerd, ch. back pain. 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 Sexually Transmitted Disease: No HIV/AIDS: No Genitourinary: No Gastrointestinal: Yes (DYSPHAGIA) Gastroesophageal Reflux Musculoskeletal: Yes Arthritis, Chronic Back Pain Endocrine: No HEENT: Yes (READING GLASSES, DENTURES) Tonsilitis Loss of Vision: Denies Hearing Impairment: Denies Cancer: No Psychosocial: No Integumentary: No Blood Disorders: No Adverse Reaction/Blood Tranf: No (N/A) Family Medical History Reviewed Nursing Family Hx Hypertension Physical Exam Vital Signs Vital Signs - First Documented 07/23/23 21:22 Temp 37.0 Pulse 90 Resp 22 B/P (MAP) 163/90 (114) Pulse Ox 99 O2 Delivery Nasal Cannula O2 Flow Rate 3.00 Capillary Refill : Less Than 3 Seconds Height, Weight, BMI Height: 4'11.00" Weight: 132lbs. 0.0oz. 59.286837ob; 35.00 BMI Method: General Appearance: WD/WN, Mild Distress HEENT: PERRL/EOMI, Pharynx Normal Neck: Non Tender, Supple Respiratory: Lungs Clear, Normal Breath Sounds Cardiovascular: Regular Rate, Rhythm, No Murmur Gastrointestinal: Non Tender, Soft Extremity: Normal Range of Motion, Non Tender Neurologic/Psychiatric: Alert, Oriented x3 Skin: Normal Color, Warm/Dry Progress/Results/Core Measures Results/Orders Lab Results Laboratory Tests Test 07/23/23 21:20 07/23/23 23:30 Range/Units White Blood Count 21.3 H 4.3-11.0 10^3/uL Red Blood Count 4.89 3.80-5.11 10^6/uL Hemoglobin 14.2 11.5-16.0 g/dL Hematocrit 43 35-52 % Mean Corpuscular Volume 89 80-99 fL Mean Corpuscular Hemoglobin 29 25-34 pg Mean Corpuscular Hemoglobin Concent 33 32-36 g/dL Red Cell Distribution Width 13.5 10.0-14.5 % Platelet Count 411 H 130-400 10^3/uL Mean Platelet Volume 8.7 L 9.0-12.2 fL Immature Granulocyte % (Auto) 2 % Neutrophils (%) (Auto) 63 42-75 % Lymphocytes (%) (Auto) 26 12-44 % Monocytes (%) (Auto) 9 0-12 % Eosinophils (%) (Auto) 0 0-10 % Basophils (%) (Auto) 1 0-10 % Neutrophils # (Auto) 13.4 H 1.8-7.8 10^3/uL Lymphocytes # (Auto) 5.5 H 1.0-4.0 10^3/uL Monocytes # (Auto) 1.9 H 0.0-1.0 10^3/uL Eosinophils # (Auto) 0.0 0.0-0.3 10^3/uL Basophils # (Auto) 0.1 0.0-0.1 10^3/uL Immature Granulocyte # (Auto) 0.4 H 0.0-0.1 10^3/uL Neutrophils % (Manual) 62 % Lymphocytes % (Manual) 26 % Monocytes % (Manual) 12 % Blood Morphology Comment NORMAL Prothrombin Time 12.7 12.2-14.7 SEC INR Comment 0.9 0.8-1.4 Activated Partial Thromboplast Time 22 L 24-35 SEC D-Dimer 0.48 0.00-0.49 UG/ML Sodium Level 139 135-145 MMOL/L Potassium Level 3.6 3.6-5.0 MMOL/L Chloride Level 102 98-107 MMOL/L Carbon Dioxide Level 24 21-32 MMOL/L Anion Gap 13 5-14 MMOL/L Blood Urea Nitrogen 14 7-18 MG/DL Creatinine 0.95 0.60-1.30 MG/DL Estimat Glomerular Filtration Rate 68 BUN/Creatinine Ratio 15 Glucose Level 106 H 70-105 MG/DL Calcium Level 8.9 8.5-10.1 MG/DL Corrected Calcium 8.9 8.5-10.1 MG/DL Magnesium Level 2.1 1.6-2.4 MG/DL Total Bilirubin 0.3 0.1-1.0 MG/DL Aspartate Amino Transf (AST/SGOT) 17 5-34 U/L Alanine Aminotransferase (ALT/SGPT) 31 0-55 U/L Alkaline Phosphatase 113 40-136 U/L Myoglobin 28.7 10.0-92.0 NG/ML Troponin I < 0.028 < 0.028 <0.028 NG/ML C-Reactive Protein High Sensitivity 0.15 0.00-0.50 MG/DL Total Protein 6.8 6.4-8.2 GM/DL Albumin 4.0 3.2-4.5 GM/DL Lipase 25 8-78 U/L My Orders Orders - PALOMA MILLS MD Ekg Tracing (07/23/23 21:15) Cbc And Automated Diff (07/23/23 21:25) Magnesium (07/23/23 21:25) Chest 1 View, Ap/Pa Only (07/23/23 21:25) Comprehensive Metabolic Panel (07/23/23 21:25) Myoglobin Serum (07/23/23:25) Protime With Inr (07/23/23 21:25) Partial Thromboplastin Time (07/23/23 21:25) O2 (07/23/23 21:25) Monitor-Rhythm Ecg Trace Only (07/23/23:) Lipid Panel (07/24/23 06:00) Ed Iv/Invasive Line Start (07/23/23 21:25) Lipase (07/23/23:) Fibrin Degradation Products (07/23/23:25) Troponin I [place] (07/23/23:25) Nitroglycerin 0.4 Mg Btl 25's (Nitroglyc (07/23/23 21:30) Aspirin Chewable Tablet (Aspirin Chewabl (07/23/23 21:30) Hs C Reactive Protein (07/23/23 21:25) Manual Differential (07/23/23 21:20) Morphine Injection (Morphine Injection (07/23/23 22:02) Pantoprazole Injection (Pantoprazole Inj (07/23/23 22:30) Lidocaine 2% Viscous 15 Ml (Xylocaine Vi (07/23/23 22:30) Antacid Suspension (Antacid Suspension (07/23/23 22:30) Hyoscyamine Tablet (Hyoscyamine Tablet) (07/23/23 22:30) Troponin I [place] (07/23/23 23:30) Medications Given in ED Current Medications Medications Dose Ordered Sig/Adama Route Start Time Stop Time Status Last Admin Dose Admin Al Hydrox/Mg Hydrox/Simethicone 30 ml ONCE ONCE PO 07/23/23 22:30 07/23/23 22:31 DC 07/23/23 22:35 30 ML Aspirin 324 mg ONCE ONCE PO 07/23/23 21:30 07/23/23 21:31 DC 07/23/23 21:31 324 MG Hyoscyamine Sulfate 0.125 mg ONCE ONCE SL 07/23/23 22:30 07/23/23 22:31 DC 07/23/23 22:35 0.125 MG Lidocaine HCl 15 ml ONCE ONCE PO 07/23/23 22:30 10/3/23 22:31 DC 07/23/23 22:35 15 ML Nitroglycerin 0.4 mg UD PRN SL 07/23/23 21:30 07/23/23 21:41 0.4 MG Pantoprazole 40 mg ONCE ONCE IV 07/23/23 22:30 07/23/23 22:31 DC 07/23/23 22:35 40 MG Vital Signs/I&O 07/23/23 21:22 Temp 37.0 Pulse 90 Resp 22 B/P (MAP) 163/90 (114) Pulse Ox 99 O2 Delivery Nasal Cannula O2 Flow Rate 3.00 Blood Pressure Mean: 114 Progress Progress Note : Progress Note Seen and evaluated. Chest pain work-up initiated including IV, labs including CBC, CMP, coags, troponin, myoglobin, lipase, CRP and D-dimer as well as EKG and chest x-ray. ASA 324 mg p.o. ordered. We will initiate nitroglycerin due to pain of 6 out of 10. Monitor patient. Differential diagnosis includes cardiac event, pancreatitis, gallbladder disease, epigastric pain secondary to medications, electrolyte abnormality 2201: Chest x-ray reviewed and shows no obvious infiltrate or other abnormality on my interpretation. CBC reviewed and shows elevated white count of 21,000 on normal hemoglobin. This may be due to prednisone use. Coags are normal and D- dimer is negative. CMP reviewed and shows normal electrolytes and normal LFTs with normal lipase. Troponin is negative and myoglobin is negative with CRP pending. I have added morphine 2 mg IV for pain. Pain declined to 4 out of 10 with 2 nitroglycerin so we will try the morphine now. Anticipate repeat troponin at 2330. We will see if we can get her pain controlled. Monitor patient. 2229: I have added Protonix 40 mg IV, Levsin 0.125 mg p.o. and a GI cocktail as she has had improvement in her pain but now has abdominal cramping. Given that she has been taking prednisone and Augmentin and does have history of GI upset requiring Tagamet daily and has been on sucralfate previously, this may be related to the medications and just be GI upset. We will repeat troponin at 2330 as discussed above. Monitor patient. 0033: Overall patient feeling much better. Repeat troponin is negative. I do believe her symptoms are related to Augmentin use. I did discuss at length with her regarding findings and concerns. She will stop the Augmentin and continue her prednisone. She will follow-up with her primary care physician I will send a copy of the chart to Dr. HUMMEL. I did discuss with her about following up with cardiology as well and have given her the on-call chemical equipment sales engineer office number. She will also follow-up with her library acquisitions technician. She and her are both comfortable with this plan. Discharged home with return precautions. Patient verbalized understanding of instructions and agreement with plan. Initial ECG Impression Date: Jul 23, 2023 Initial ECG Impression Time: 21:20 Initial ECG Rate: 91 Initial ECG Rhythm: Normal Sinus Comment Sinus rhythm with normal axis. No evidence of ST elevation OK. Interpreted by me. Diagnostic Imaging Diagonstic Imaging: Xray Plain Films/CT/US/NM/MRI: chest Comments [facility]. [place], [place] NAME: FOREIGN [facility]ARILLO [facility] REC#: [id number] PT STATUS: REG ER : 1960 PHYSICIAN: PALOMA MILLS MD ADMIT DATE: 07/23/23/ER Signed Date of Exam:07/23/23 CHEST 1 VIEW, AP/PA ONLY CHEST 1 VIEW, AP/PA ONLY Indication: Chest pain. Comparison: 02/16/2023 Findings: No focal airspace disease in the visualized lungs. No pleural effusion or pneumothorax. Normal cardiomediastinal silhouette. Impression: 1. No acute cardiopulmonary process by portable radiography. Dictated by: Dictated on workstation # [id number] Dict: 07/23/232150 Trans: 07/23/232150 [facility] [id number] Interpreted by: JACLYN VELARDE MD Electronically signed by: JACLYN VELARDE MD 07/23/232150 Departure Impression Primary Impression: Chest pain Qualified Codes: R07.9 - Chest pain, unspecified Additional Impression: Epigastric abdominal pain Disposition: HOME, SELF-CARE Condition: Improved Departure-Patient Inst. Decision time for Depature: 00:34 Referrals: GERARD GUTIERREZ MD FACP [facility] ANJEL HUMMEL DO (PCP/Family) Primary Care Physician Patient Instructions: Chest Pain (DC), Abdominal Pain, Adult ED Add. Discharge Instructions: All discharge instructions reviewed with patient and/or family. Voiced understanding. Stop taking Augmentin. Call your library acquisitions technician and let them know that we have stopped that medicine but you are still taking the steroid. They may represcribe a different medication if needed. Follow-up with Dr. Hummel for recheck and further evaluation and referral to cardiology. You may call the chemical equipment sales engineer listed or of your choosing for appointment as well. You should initiate [id number] omeprazole which you may buy in the 2-week, 4-week or 6-week pack. I would recommend that you take this for at least 2 weeks to reduce your acid and reflux symptoms. Clear a light diet for the next 24 hours and then advance as tolerated. Return for worse pain, fever, vomiting, weakness, breathing problems, chest pain, sweating or other concerns as needed. Copy Copies To 1: ANJEL HUMMEL TIMOTHY D MD Jul 23, 2023 21:47
--- NOTE | 2023-07-23 21:53 | Diagnostic Imaging Report ---
CHEST 1 VIEW, AP/PA ONLY Indication: Chest pain. Comparison: 02/16/2023 Findings: No focal airspace disease in the visualized lungs. No pleural effusion or pneumothorax. Normal cardiomediastinal silhouette. Impression: 1. No acute cardiopulmonary process by portable radiography. Dictated by: Dictated on workstation # [id number]
[2023-07-23 21:57] LABS: INR 0.9 (0.8-1.4); PROTHROMBIN TIME PATIENT 12.7 SEC (12.2-14.7)
[2023-07-23 22:00] LABS: FIBRIN DEGRADATION PRODUCTS 0.48 UG/ML (0.00-0.49)
[2023-07-23 22:01] LABS: ALANINE AMINOTRANSFERASE 31 U/L (0-55); ALKALINE PHOSPHATASE 113 U/L (40-136); BILIRUBIN,TOTAL 0.3 MG/DL (0.1-1.0); BUN/CREATININE RATIO 15; CALCIUM 8.9 MG/DL (8.5-10.1); CARBON DIOXIDE 24 MMOL/L (21-32); CHLORIDE 102 MMOL/L (98-107); CREATININE SERUM 0.95 MG/DL (0.60-1.30); GFR ESTIMATED 68; GLUCOSE 106 MG/DL (70-105); LIPASE 25 U/L (8-78); MAGNESIUM 2.1 MG/DL (1.6-2.4); POTASSIUM 3.6 MMOL/L (3.6-5.0); SODIUM 139 MMOL/L (135-145); TOTAL PROTEIN 6.8 GM/DL (6.4-8.2)
[2023-07-23] MEDS ORDERED: morphine INJ 10 MG/ML 1ML (SYR OR VIAL) IVP STA (22:02)
[2023-07-23 22:22] LABS: LYMPHOCYTES % (MANUAL) 26 %; MONOCYTES % (MANUAL) 12 %; NEUTROPHILS % (MANUAL) 62 %; RBC MORPH NORMAL
[2023-07-23] MEDS ORDERED: ANTACID SUSPENSION 30 ML UDC PO ONE (22:30)
[2023-07-23] MEDS ORDERED: PANTOPRAZOLE INJECTION 40 MG VIAL IV ONE (22:30)
[2023-07-23] MEDS ORDERED: HYOSCYAMINE 0.125 MG TABLET SL ONE (22:30)
[2023-07-23] MEDS ORDERED: LIDOCAINE 2% VISCOUS 15 ML UDC PO ONE (22:30)
[2023-07-24 00:38] VITALS: BP 143/79
== END 2023-07-24 00:40 | disposition home or self-care (01) ==
LOC: EDUNIT# 21:13 → ER 21:15
DX: R07.89 Other chest pain (principal); R10.13 Epigastric pain; J44.9 Chronic obstructive pulmonary disease, unspecified; F17.210 Nicotine dependence, cigarettes, uncomplicated; Z99.81 Dependence on supplemental oxygen; Z88.1 Allergy status to other antibiotic agents
CPT/HCPCS: 36415; 71045; 80053; 83690; 83735; 83874; 84484; 85007; 85027; 85379; 85610; 85730; 86141; 93005; 93041

== ENCOUNTER 2023-07-25 22:19 | Inpatient (IN) | payer MEDICARE ==
[~2023-07-25] VITALS: Ht 152.4 cm; Wt 84.7 kg
[2023-07-25] MEDS ORDERED: LACTATED RINGERS 1,000 ML 1,000 ML IV ONE (22:45)
[2023-07-25 22:51] LABS: BASOPHILS # (AUTO) 0.1 10^3/uL (0.0-0.1); BASOPHILS % (AUTO) 1 % (0-10); EOSINOPHILS # (AUTO) 0.2 10^3/uL (0.0-0.3); EOSINOPHILS % (AUTO) 1 % (0-10); HEMATOCRIT 44 % (35-52); HEMOGLOBIN 14.5 g/dL (11.5-16.0); LYMPHOCYTES # (AUTO) 4.3 10^3/uL (1.0-4.0); LYMPHOCYTES % (AUTO) 21 % (12-44); MEAN CORPUSCULAR HEMOGLOBIN 30 pg (25-34); MEAN CORPUSCULAR HGB CONC 33 g/dL (32-36); MEAN CORPUSCULAR VOLUME 89 fL (80-99); MEAN PLATELET VOLUME 8.8 fL (9.0-12.2); MONOCYTES # (AUTO) 1.9 10^3/uL (0.0-1.0); MONOCYTES % (AUTO) 9 % (0-12); NEUTROPHILS # (AUTO) 14.2 10^3/uL (1.8-7.8); NEUTROPHILS % (AUTO) 68 % (42-75); PLATELET COUNT 348 10^3/uL (130-400); WHITE BLOOD COUNT 20.8 10^3/uL (4.3-11.0)
[2023-07-25] MEDS ORDERED: KETOROLAC INJ 30 MG/ML VIAL IVP STA (22:52)
[2023-07-25 22:59] LABS: POTASSIUM 3.6 MMOL/L (3.6-5.0)
[2023-07-25] MEDS ORDERED: PANTOPRAZOLE INJECTION 40 MG VIAL IV ONE (23:00)
[2023-07-25] MEDS ORDERED: ONDANSETRON INJECTION 4 MG/2 ML (SDV) IVP ONE (23:00)
[2023-07-25 23:01] LABS: CALCIUM 9.3 MG/DL (8.5-10.1)
[2023-07-25 23:02] LABS: TOTAL PROTEIN 6.8 GM/DL (6.4-8.2)
[2023-07-25 23:04] LABS: BILIRUBIN,TOTAL 0.7 MG/DL (0.1-1.0)
[2023-07-25 23:05] LABS: CREATININE SERUM 0.91 MG/DL (0.60-1.30)
[2023-07-25 23:11] LABS: CLARITY,URINE CLEAR; COLOR,URINE ORANGE; PH,URINE 5.5 (5-9)
[2023-07-25 23:12] LABS: BACTERIA,URINE TRACE /HPF; BILIRUBIN,URINE 1+ (NEGATIVE); GLUCOSE, URINE (UA) NEGATIVE (NEGATIVE); KETONES,URINE NEGATIVE (NEGATIVE); LEUKOCYTE ESTERASE ,URINE 1+ (NEGATIVE); NITRITE,URINE NEGATIVE (NEGATIVE); PROTEIN,URINE 1+ (NEGATIVE); RBC,URINE 0-2 /HPF; SQUAMOUS EPITHELIAL CELL,UR >50 /HPF; YEAST,URINE FEW /HPF
[2023-07-25 23:20] LABS: INR 0.9 (0.8-1.4); PROTHROMBIN TIME PATIENT 12.6 SEC (12.2-14.7)
[2023-07-25 23:29] LABS: EOSINOPHILS % (MANUAL) 1 %; LYMPHOCYTES % (MANUAL) 23 %; MONOCYTES % (MANUAL) 7 %; NEUTROPHILS % (MANUAL) 68 %; PLATELET ESTIMATE ADEQUATE; REACTIVE LYMPHOCYTES 1 %; STOMATOCYTES SLIGHT
[2023-07-25] MEDS ORDERED: HOLD METFORMIN - RECEIVED CONTRAST 20 ML VIAL IV SCH (23:45)
[2023-07-25] MEDS ORDERED: CATHETER FLUSH 10 ML SYR IV PRN (23:45)
[2023-07-25] MEDS ORDERED: IOHEXOL 350 MG/ML 100 ML (OMNIPAQUE 350) VIAL IV ONE (23:45)
[2023-07-25] MEDS ORDERED: NS 100 ML (IVPB) BAG IV ONE (23:45)
--- NOTE | 2023-07-25 23:55 | ED Abdominal Pain ---
General Chief Complaint: Abdominal/GI Problems Stated Complaint: PAINFUL CRAMPS IN LOWER ABD, RADIATE TO BACK Nursing Triage Note: TO ED VIA POV AND AMBULATORY TO ROOM 7 WITH C/O CONTINUED AND "WORSE PAIN" SINCE LAST ER VISIT 07/23/23. PT ALSO C/O DRY MOUTH AND WEAKNESS. PT HAS NOT F/U WITH PCP SINCE LAST ER VISIT. PT DENIES N/V/D. C/O "CRAMPING UNDER BREAST TO BACK". PT DID STOP TAKING RX AUGMENTIN. Source of Information: Patient History of Present Illness Date Seen by Provider: Jul 25, 2023 Time Seen by Provider: 22:43 Initial Comments PT ARRIVES VIA POV FROM HOME PT C/O EPIGASTRIC PAIN AND CRAMPING SINCE SATURDAY. + NAUSEA, NO VOMITING + DIARRHEA FOR 3-4 DAYS, NO BM TODAY, HAD 1 WATERY STOOL YESTERDAY. NO BLACK/BLOODY/TARRY STOOLS NO FEVER NO URINARY SYMPTOMS AND VOIDING A NORMAL AMOUNT STATES SHE "CAN'T EAT" BUT IS TAKING LIQUIDS WELL SHE HAD CHICKEN NOODLE SOUP FOR LUNCH, OTHERWISE SHE HAS JUST HAD LIQUIDS TODAY PT HAS COPD--O2 DEPENDENT AT 2- 2 1/2 L/NC CONTINOUSLY -- AND HTN PT STATES SHE WAS TREATED FOR RESPIRATORY SYMPTOMS "LAST WEEK" AND GOT A "Z-PACK AND AND AUGMENTIN" PT DOES NOT REPORT THAT SHE WAS PRESCRIBED PREDNISONE PER MED RECONCILIATION, PT WAS ACTUALLY PRESCRIBED PREDNISONE--NOT "Z-PACK" SHE WAS SEEN AT DR. MCNULTY'S OFFICE 07/12/23 FOR RESPIRATORY SYMPTOMS AND WAS PRESCRIBED PREDNISONE SHE WAS SEEN AGAIN 07/19/23 FOR RESPIRATORY SYMPTOMS AND WAS PRESCRIBED ANOTHER ROUND OF PREDNISONE AND AUGMENTIN THOSE SYMPTOMS ARE BETTER SHE SEES DR. ARREOLA FOR PULMONOLOGY AND SHE USES ALBUTEROL INHALER, FLUTICASONE, MONTELUKAST AND BREZTRI INHALER PT HAS HAD HYSTERECTOMY/ BILATERAL SALPINGO-OOPHORECTOMY. NO OTHER ABDOMINAL SURGERIES NO HISTORY OF GI PROBLEMS. PCP: DR. MCNULTY TELEPHONE SEX WORKER: DR. ARREOLA Allergies and Home Medications Allergies Coded Allergies: amoxicillin (Verified Allergy, Mild, RASH, 05/11/19) Patient Home Medication List Home Medication List Reviewed: Yes Albuterol Sulfate (Ventolin Hfa) 18 Gm Hfa.aer.ad, 2 PUFF INH Q6H PRN for SHORTNESS OF BREATH, (Reported) Entered as Reported by: RAJ SAMANIEGO on 08/21/21 1006 Last Action: Continued Amlodipine Besylate (Amlodipine Besylate) 5 Mg Tablet, 5 MG PO DAILY, (Reported) Entered as Reported by: JUDY ANDREWS on 05/11/191403 Last Action: Continued Budesonide/Glycopyr/Formoterol (Breztri Aerosphere Inhaler) 160 Mcg-9 Mcg-4.8 Mcg/Actuation Hfa.aer.ad, 10.7 GM IH BID Prescribed by: KIN HUYNH on 07/26/23 0545 Last Action: Converted Bupropion HCl (Wellbutrin Sr) 150 Mg Tablet.er, 150 MG PO 0700,1600, (Reported) Entered as Reported by: JUDY ANDREWS on 05/11/191403 Last Action: Continued Discontinued Medications Azithromycin (Azithromycin) 250 Mg Tablet, 250 MG PO UD Discontinued Reason: No Longer Taking Prescribed by: ADELINA COLMENARES on 02/17/23 132 Last Action: Discontinued Budesonide/Formoterol Fumarate (Symbicort 160-4.5 Mcg Inhaler) 10.2 Gm Hfa.aer.ad, 2 PUFF IH BID, (Reported) Discontinued Reason: No Longer Taking Entered as Reported by: JUDY ANDREWS on 05/11/191403 Last Action: Discontinued Hyoscyamine Sulfate (Levsin-Sl) 0.125 Mg Tab.subl, 0.125 MG SL QID Discontinued Reason: No Longer Taking Prescribed by: ANJEL MCNULTY on 08/21/21 1103 Last Action: Discontinued Pantoprazole Sodium (Pantoprazole Sodium) 40 Mg Tablet.dr, 40 MG PO DAILY Discontinued Reason: No Longer Taking Prescribed by: ANJEL MCNULTY on 08/21/21 1103 Last Action: Discontinued Prednisone (Prednisone) 20 Mg Tab, 40 MG PO DAILY Discontinued Reason: No Longer Taking Prescribed by: ADELINA COLMENARES on 02/17/23 1327 Last Action: Discontinued Sucralfate (Carafate) 1 Gram Tablet, 1 GM PO QID Discontinued Reason: No Longer Taking Prescribed by: ADELINA COLMENARES on 02/16/23 2122 Last Action: Discontinued Review of Systems Review of Systems Constitutional: no symptoms reported; No chills, No diaphoresis, No fever EENTM: No Symptoms Reported Respiratory: See HPI Cardiovascular: No Symptoms Reported; Denies Chest Pain Gastrointestinal: See HPI, Abdominal Pain, Diarrhea, Nausea, Poor Appetite; Denies Vomiting Genitourinary: No Symptoms Reported Musculoskeletal: no symptoms reported Skin: no symptoms reported Psychiatric/Neurological: No Symptoms Reported Endocrine: No Symptoms Reported Hematologic/Lymphatic: No Symptoms Reported Past Gyycrfv-Kqrmwx-Qajalr Hx Patient Social History Tobacco Use?: Yes Tobacco type used: Cigarettes Smoking Status: Former Smoker Substance use?: No Alcohol Use?: No Immunizations Up To Date Tetanus Booster (TDap): Unknown First/Initial COVID19 Vaccinat: x3 Second COVID19 Vaccination Stanislaw: x3 Third COVID19 Vaccination Date: x3 Seasonal Allergies Seasonal Allergies: No Past Medical History Surgery/Hospitalization HX: copd, htn, gerd, ch. back pain. hysterectomy with bso, ta, home o2 Surgeries: Yes (lipoma removed from the left side of back; HYST/BSO; T&A) Hysterectomy, Oophorectomy, Tonsillectomy Respiratory: Yes (O2 DEPENDENT AT 2 - 2 1/2 L/NC CONTINUOUSLY. 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 Sexually Transmitted Disease: No HIV/AIDS: No Genitourinary: No Gastrointestinal: Yes (DYSPHAGIA) Gastroesophageal Reflux Musculoskeletal: Yes Arthritis, Chronic Back Pain Endocrine: No HEENT: Yes (READING GLASSES, DENTURES) Tonsilitis Loss of Vision: Denies Hearing Impairment: Denies Cancer: No Psychosocial: No Integumentary: No Blood Disorders: No Adverse Reaction/Blood Tranf: No (N/A) Family Medical History Hypertension SOCIAL HISTORY: -SMOKED 1 PPD, QUIT 04/2021 -ETOH--DENIES USE -DRUGS--DENIES USE PAST SURGICAL HISTORY: -LAVH / BSO 2008 -TONSILLECTOMY Physical Exam Vital Signs Vital Signs - First Documented 07/25/23 22:39 Temp 36.9 Pulse 107 Resp 18 B/P (MAP) 151/88 (109) Pulse Ox 95 O2 Delivery Nasal Cannula O2 Flow Rate 2.00 Capillary Refill : Less Than 3 Seconds Height/Weight/BMI Height: 4'11.00" Weight: 132lbs. 0.0oz. [id number]; 35.00 BMI Method: General Appearance: WD/WN, no apparent distress, other (DOES NOT APPEAR TO BE ILL OR TO BE IN ANY DISCOMFORT) HEENT: No scleral icterus (R), No scleral icterus (L) Neck: normal inspection Respiratory: normal breath sounds, no respiratory distress, no accessory muscle use Cardiovascular: regular rate, rhythm, no murmur Gastrointestinal: normal bowel sounds, soft; No distended, No guarding, No rebound; tenderness (DIFFUSE UPPER ABDOMINAL TENDERNESS, BUT IS MOST TENDER IN MID EPIGASTRIC AREA); No hernia, No mass Extremities: normal inspection Back: normal inspection 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/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: 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, no motor/sensory deficits, alert, normal mood/affect, oriented x 3 Skin: normal color, warm/dry; No rash Focused Exam Lactate Level 07/25/23 23:03: Lactic Acid Level 1.09 Lactic Acid Level Laboratory Tests Test 07/25/23 23:03 Lactic Acid Level 1.09 MMOL/L (0.50-2.00) Progress/Results/Core Measures Results/Orders Lab Results Laboratory Tests Test 07/25/23 22:42 07/25/23 22:55 07/25/23 23:03 Range/Units White Blood Count 20.8 H 4.3-11.0 10^3/uL Red Blood Count 4.88 3.80-5.11 10^6/uL Hemoglobin 14.5 11.5-16.0 g/dL Hematocrit 44 35-52 % Mean Corpuscular Volume 89 80-99 fL Mean Corpuscular Hemoglobin 30 25-34 pg Mean Corpuscular Hemoglobin Concent 33 32-36 g/dL Red Cell Distribution Width 13.5 10.0-14.5 % Platelet Count 348 130-400 10^3/uL Mean Platelet Volume 8.8 L 9.0-12.2 fL Immature Granulocyte % (Auto) 1 % Neutrophils (%) (Auto) 68 42-75 % Lymphocytes (%) (Auto) 21 12-44 % Monocytes (%) (Auto) 9 0-12 % Eosinophils (%) (Auto) 1 0-10 % Basophils (%) (Auto) 1 0-10 % Neutrophils # (Auto) 14.2 H 1.8-7.8 10^3/uL Lymphocytes # (Auto) 4.3 H 1.0-4.0 10^3/uL Monocytes # (Auto) 1.9 H 0.0-1.0 10^3/uL Eosinophils # (Auto) 0.2 0.0-0.3 10^3/uL Basophils # (Auto) 0.1 0.0-0.1 10^3/uL Immature Granulocyte # (Auto) 0.2 H 0.0-0.1 10^3/uL Neutrophils % (Manual) 68 % Lymphocytes % (Manual) 23 % Monocytes % (Manual) 7 % Eosinophils % (Manual) 1 % Reactive Lymphocytes 1 % Platelet Estimate ADEQUATE Stomatocytes SLIGHT Prothrombin Time 12.6 12.2-14.7 SEC INR Comment 0.9 0.8-1.4 Activated Partial Thromboplast Time 24 24-35 SEC Sodium Level 137 135-145 MMOL/L Potassium Level 3.6 3.6-5.0 MMOL/L Chloride Level 101 98-107 MMOL/L Carbon Dioxide Level 21 21-32 MMOL/L Anion Gap 15 H 5-14 MMOL/L Blood Urea Nitrogen 14 7-18 MG/DL Creatinine 0.91 0.60-1.30 MG/DL Estimat Glomerular Filtration Rate 71 BUN/Creatinine Ratio 15 Glucose Level 126 H 70-105 MG/DL Calcium Level 9.3 8.5-10.1 MG/DL Corrected Calcium 9.3 8.5-10.1 MG/DL Total Bilirubin 0.7 0.1-1.0 MG/DL Aspartate Amino Transf (AST/SGOT) 20 5-34 U/L Alanine Aminotransferase (ALT/SGPT) 29 0-55 U/L Alkaline Phosphatase 98 40-136 U/L C-Reactive Protein High Sensitivity 3.82 H 0.00-0.50 MG/DL Total Protein 6.8 6.4-8.2 GM/DL Albumin 4.0 3.2-4.5 GM/DL Amylase Level 92 25-125 U/L Lipase 17 8-78 U/L Urine Color ORANGE Urine Clarity CLEAR Urine pH 5.5 5-9 Urine Specific [place] >=1.030 1.016-1.022 Urine Protein 1+ H NEGATIVE Urine Glucose (UA) NEGATIVE NEGATIVE Urine Ketones NEGATIVE NEGATIVE Urine Nitrite NEGATIVE NEGATIVE Urine Bilirubin 1+ H NEGATIVE Urine Urobilinogen 0.2 < = 1.0 MG/DL Urine Leukocyte Esterase 1+ H NEGATIVE Urine RBC (Auto) 1+ H NEGATIVE Urine RBC 0-2 /HPF Urine WBC 5-10 H /HPF Urine Squamous Epithelial Cells >50 H /HPF Urine Crystals NONE /LPF Urine Bacteria TRACE /HPF Urine Casts NONE /LPF Urine Mucus MODERATE H /LPF Urine Yeast FEW H /HPF Urine Culture Indicated CULTURE PENDING Lactic Acid Level 1.09 0.50-2.00 MMOL/L Micro Results Microbiology 07/25/23 Blood Culture - Preliminary, Resulted 07/25/23 Blood Culture - Preliminary, Resulted My Orders Orders - LUCIANO LAL DO Ed Iv/Invasive Line Start (07/25/23 22:44) Monitor-Rhythm Ecg Trace Only (07/25/23 22:44) Amylase (07/25/23 22:44) Cbc And Automated Diff (07/25/23 22:44) Comprehensive Metabolic Panel (07/25/23 22:44) Hs C Reactive Protein (07/25/23 22:44) Lipase (07/25/23 22:44) Ed Iv/Invasive Line Start (07/25/23 22:44) Lactated Ringers 1,000 Ml (Lactated Ring (07/25/23 22:45) Ct Chest/Abdomen/Pelvis W (07/25/23 22:52) Ondansetron Injection (Ondansetron Inj (07/25/23 23:00) Ketorolac Injection (Ketorolac Injection (07/25/23 22:52) Pantoprazole Injection (Pantoprazole Inj (07/25/23 23:00) Protime With Inr (07/25/23:52) Partial Thromboplastin Time (07/25/23 22:52) Ed Iv/Invasive Line Start (07/25/23 22:52) Vital Signs Adult Sepsis Patie Q15M (07/25/23 22:52) O2 (07/25/23 22:52) Lactic Acid Analyzer (07/25/23 22:52) Blood Culture (07/25/23 22:52) Urinalysis (07/25/23 22:52) Urine Culture (07/25/23 22:52) Manual Differential (07/25/23 22:42) Iohexol Injection (Omnipaque 350 Mg/Ml 1 (07/25/23 23:45) Received Contrast (Hold Metformin- Contr (07/25/23 23:45) Sodium Chloride Flush (Catheter Flush Sy (07/25/23 23:45) Ns (Ivpb) 100 Ml (Sodium Chloride 0.9% 1 (07/25/23 23:45) Fentanyl Injection (Fentanyl Injection (07/26/23 04:15) Medications Given in ED Vital Signs/I&O 07/25/23 07/25/23 07/26/23 22:39 22:39 04:39 Temp 36.9 36.9 Pulse 107 80 Resp 18 16 B/P (MAP) 151/88 (109) 108/66 Pulse Ox 95 95 O2 Delivery Nasal Cannula Nasal Cannula Nasal Cannula O2 Flow Rate 2.00 2.00 2.00 Blood Pressure Mean: 109 Progress Progress Note : Progress Note VITALS ON ARRIVAL: TEMP 36.9=98.4, HR 107, RR 18, BP 151/88, O2 SAT 95% ON 2L/NC GIVEN: -IV FLUIDS -ZOFRAN -TORADOL--MUCH IMPROVEMENT IN PAIN -FENTANYL--MUCH IMPROVEMENT IN PAIN LABS: -CBC WITH WBC 20.8, OTHERWISE NORMAL -CMP WITH NORMAL ELECTROLYTES, NORMAL LIVER ENZYMES, NORMAL AMYLASE/LIPASE, GLU 126 -LACTIC ACID 1.09 -CRP 3.82 -PT/PTT/INR NORMAL -UA WITH 1+ PROTEIN, 1+ BILI, 1+ LEUKOCYTES, 5-10 WBC, FEW BACTERIA CT WITH VASCULITIS AROUND CELIAC AND HEPATIC ARTERIES MARKED DELAY IN OBTAINING CT REPORT--GREATER THAN 3 HOURS VITALS STABLE, AFEBRILE NO DETERIORATION IN PT'S CONDITION DURING ER STAY DISCUSSED TEST RESULTS, NEED FOR ADMIT AND PT IS AGREEABLE TO PLAN REVIEWED PRIOR RECORDS, INCLUDING ER VISITS, ADMITS/H&P'S/CONSULTS/DISCHARGE SUMMARIES, TESTS/PROCEDURES Diagnostic Imaging Comments CT ABDOMEN/PELVIS--PER [facility] VIA FAX AT 0336 -NO ACUTE FINDINGS IN CHEST -EMPHYSEMATOUS CHANGES -FAT STRANDING OF CELIAC AXIS EXTENDING INTO THE COMMON AND PROPER HEPATIC ARTERY, POSSIBLY REPRESENTING VASCULITIS -NO OTHER ACUTE INTRA-ABDOMINAL ABNORMALITY. Reviewed: Reviewed by Me Departure Communication (Admissions) 0344--CONTACTED DR. SHINE, HOSPITALIST. SHE IS AGREEABLE TO ADMIT IF GENERAL SURGERY IS AGREEABLE 034--SPOKE WITH DR. HAGAN, SURGEON, HE IS AGREEABLE TO ADMITTING PT HERE, AND HE WILL SEE PT IN CONSULT. 0350--INFORMED DR. SHINE, OF THE ABOVE. SHE DOES NOT ADVISE ANY ADDITIONAL TREATMENT AT THIS TIME 0355--REPORT TO E-ICU PHYSICIAN. Impression Primary Impression: Upper abdominal pain Additional Impressions: Leukocytosis VASCULITIS OF CELIAC AXIS COPD (chronic obstructive pulmonary disease) HTN (hypertension) Disposition: ADMITTED INPATIENT Condition: Improved Admissions Decision to Admit Reason: Admit from ER (General) Decision to Admit/Date: Jul 26, 2023 Time/Decision to Admit Time: 03:45 Departure-Patient Inst. Referrals: ANJEL MCNULTY DO (PCP/Family) Primary Care Physician Scripts Budesonide/Glycopyr/Formoterol (Breztri Aerosphere Inhaler) 160 Mcg-9 Mcg-4.8 Mcg/Actuation Hfa.aer.ad 10.7 GM IH BID for Dyspean for 30 Days, GM Prov: EAVN SHINE DO 07/26/23 LUCIANO LAL DO Jul 25, 2023 23:55
[2023-07-26] MEDS ORDERED: fentaNYL INJECTION 100 MCG/2 ML VIAL IVP ONE (04:15)
[2023-07-26] MEDS ORDERED: NS IV 500 ML 500 ML IV PRN (05:15)
[2023-07-26] MEDS ORDERED: LACTATED RINGERS 1,000 ML 1,000 ML IV ONE (05:26)
[2023-07-26] MEDS: LACTATED RINGERS 1,000 ML 1,000 ML IV SCH ×4 (05:30→20:30)
[2023-07-26] MEDS ORDERED: BUDE10.7 IH (05:45)
[2023-07-26] MEDS: fentaNYL INJECTION 100 MCG/2 ML VIAL IV PRN ×4 (06:06→17:15)
[2023-07-26 06:16] LABS: BASOPHILS # (AUTO) 0.1 10^3/uL (0.0-0.1); BASOPHILS % (AUTO) 0 % (0-10); EOSINOPHILS # (AUTO) 0.2 10^3/uL (0.0-0.3); EOSINOPHILS % (AUTO) 1 % (0-10); HEMATOCRIT 38 % (35-52); HEMOGLOBIN 12.6 g/dL (11.5-16.0); LYMPHOCYTES # (AUTO) 3.9 10^3/uL (1.0-4.0); LYMPHOCYTES % (AUTO) 28 % (12-44); MEAN CORPUSCULAR HEMOGLOBIN 30 pg (25-34); MEAN CORPUSCULAR HGB CONC 34 g/dL (32-36); MEAN CORPUSCULAR VOLUME 89 fL (80-99); MEAN PLATELET VOLUME 8.7 fL (9.0-12.2); MONOCYTES # (AUTO) 1.4 10^3/uL (0.0-1.0); MONOCYTES % (AUTO) 10 % (0-12); NEUTROPHILS # (AUTO) 8.5 10^3/uL (1.8-7.8); NEUTROPHILS % (AUTO) 61 % (42-75); PLATELET COUNT 283 10^3/uL (130-400)
[2023-07-26 06:43] LABS: POTASSIUM 3.6 MMOL/L (3.6-5.0)
--- NOTE | 2023-07-26 06:43 | Diagnostic Imaging Report ---
PROCEDURE: CT chest, abdomen, and pelvis with contrast. TECHNIQUE: Multiple contiguous axial images were obtained through the chest, abdomen, and pelvis after the administration of intravenous contrast. Auto Exposure Controls were utilized during the CT exam to meet ALARA standards for radiation dose reduction. INDICATION: Abdominal pain and cramping. COMPARISON: 05/01/2023 FINDINGS: CT CHEST: Cardiomediastinal structures show normal heart size. There is no large pericardial effusion. No pathologically enlarged or morphologically abnormal adenopathy is seen within the mediastinum, king, nor axilla. Lungs are clear. Note is made of background advanced emphysematous changes. There is no focal consolidation, large effusion, no pneumothorax. No suspicious pulmonary nodule or mass is identified. Osseous structures show no acute abnormalities. CT ABDOMEN: Normal appendix is identified. Small bowel loops are nondilated. The kidneys, adrenal glands, spleen, pancreas, and liver have a normal CT appearance. There is no loculated fluid collection, free fluid or free air within the abdomen. No abnormal mesenteric or retroperitoneal adenopathy is seen. There is mild to moderate scattered calcified aortic arch atherosclerosis. Note is also made of mild stranding surrounding the celiac trunk extending into the right common and proper hepatic artery. Osseous structures show no acute abnormalities. CT PELVIS: Urinary bladder is minimally distended. No calculi are seen with near bladder. There is no loculated fluid collection, free fluid or free air within the pelvis. No abnormal lymph nodes are identified. Osseous structures show no acute abnormalities. IMPRESSION: 1. No acute abnormalities seen within the chest, abdomen, or pelvis. 2. Advanced emphysematous changes with mild to moderate calcified aortic arch atherosclerosis. Correlation with history of smoking is advised. 3. Perivascular fat stranding surrounding the celiac artery extending into the common and proper hepatic arteries. Findings may be seen with underlying vasculitis. 4. I agree with [facility] report. Dictated by: Dictated on workstation # [id number]
[2023-07-26 06:44] LABS: CALCIUM 8.5 MG/DL (8.5-10.1)
[2023-07-26 06:49] LABS: CREATININE SERUM 0.79 MG/DL (0.60-1.30)
[2023-07-26 06:51] LABS: MAGNESIUM 2.3 MG/DL (1.6-2.4)
[2023-07-26] MEDS: MAGNESIUM 1 GM/100 ML IVPB 100 ML IV SCH (07:43)
[2023-07-26] MEDS: POTASSIUM CHLORIDE 20 MEQ TABLET PO SCH (07:43)
[2023-07-26] MEDS: POTASSIUM CL 10MEQ/50ML IVPB 50 ML IV SCH ×5 (07:44→11:30)
[2023-07-26] MEDS: KETOROLAC INJ 30 MG/ML VIAL IV PRN ×2 (08:13→20:31)
[2023-07-26] MEDS ORDERED: PANTOPRAZOLE INJECTION 40 MG VIAL IV SCH (09:00)
--- NOTE | 2023-07-26 09:27 | Consultation - Surgery ---
JUANA GODOY 07/26/23 0927: History of Present Illness History of Present Illness Patient Consulted On(hunter/time) 07/26/23 08:35 Date Seen by Provider: Jul 26, 2023 Time Seen by Provider: 08:35 Reason for Visit: Epigastric/ Abdominal Pain History of Present Illness Lyly Paris is a 62 year old female with a history of COPD and reflux symptoms who presented due to epigastric/ abdominal pain. Patient reported having some cramping abdominal pain and nausea that started on 07/23. She originally presented to the ER where they attributed the GI discomfort and pain to the antibiotics and prednisone that she recently started on 07/17. They discontinued her augmentin before discharge and she stopped taking her prednisone as well. She was sent home with some pain medications and encouraged to take some omeprazole for potential reflux (she has not had time to start this yet). She seemed to improve at home at first but her pain gradually increased in severity over the next day. Currently she rates her pain a 3/10 but says when the pain medications saavedra off, he pain becomes 10/10 and radiates to the back. She has had decreased appetite and has only been able to eat some chicken noodle soup and crackers yesterday afternoon. Patients last bowel movement was 3 days ago and was described as yellow/brown and watery in consistency but denied any black or red discoloration. Patient has experienced some bloating after eating fatty meals for the last 2-3 months and recently received RSV and Flue shot around 2 and 4 weeks ago respectively. Allergies and Home Medications Allergies Coded Allergies: amoxicillin (Verified Allergy, Mild, RASH, 05/11/19) Patient Home Medication List Acetaminophen (Tylenol) 325 Mg Tablet, 650 MG PO Q6H PRN for PAIN-MILD (1-4), (Reported) Entered as Reported by: DHIRAJ GILL on 07/29/23 0906 Last Action: Reviewed Albuterol Sulfate (Ventolin Hfa) 18 Gm Hfa.aer.ad, 2 PUFF INH Q6H PRN for SHORTNESS OF BREATH, (Reported) Entered as Reported by: RAJ SAMANIEGO on 08/21/21 1006 Last Action: Reviewed Amlodipine Besylate (Amlodipine Besylate) 5 Mg Tablet, 5 MG PO DAILY, (Reported) Entered as Reported by: JUDY ANDREWS on 05/11/191403 Last Action: Reviewed Budesonide/Glycopyr/Formoterol (Breztri Aerosphere Inhaler) 160 Mcg-9 Mcg-4.8 Mcg/Actuation Hfa.aer.ad, 2 PUFF IH BID, (Reported) Entered as Reported by: DHIRAJ GILL on 07/29/23905 Last Action: Reviewed Bupropion HCl (Wellbutrin Sr) 150 Mg Tablet.er, 150 MG PO 0700,1600, (Reported) Entered as Reported by: JUDY ANDREWS on 05/11/191403 Last Action: Reviewed Fexofenadine HCl (Kari Allergy) 60 Mg Tablet, 60 MG PO DAILY PRN for ALLERGI ES, (Reported) Entered as Reported by: DHIRAJ GILL on 07/29/23905 Last Action: Reviewed Hydroxyzine HCl (Hydroxyzine HCl) 10 Mg Tablet, 10 MG PO DAILY PRN for ANXIETY, (Reported) Entered as Reported by: DHIRAJ GILL on 07/29/23905 Last Action: Reviewed Discontinued Medications Azithromycin (Azithromycin) 250 Mg Tablet, 250 MG PO UD Discontinued Reason: No Longer Taking Prescribed by: ADELINA COLMENARES on 02/17/23 1327 Last Action: Discontinued Budesonide/Formoterol Fumarate (Symbicort 160-4.5 Mcg Inhaler) 10.2 Gm Hfa.aer.ad, 2 PUFF IH BID, (Reported) Discontinued Reason: No Longer Taking Entered as Reported by: JUDY ANDREWS on 05/11/191403 Last Action: Discontinued Budesonide/Glycopyr/Formoterol (Breztri Aerosphere Inhaler) 160 Mcg-9 Mcg-4.8 Mcg/Actuation Hfa.aer.ad, 10.7 GM IH BID Discontinued Reason: Duplicate Order Prescribed by: KIN HUYNH on 07/26/23 5828 Last Action: Discontinued Hyoscyamine Sulfate (Levsin-Sl) 0.125 Mg Tab.subl, 0.125 MG SL QID Discontinued Reason: No Longer Taking Prescribed by: ANJEL MCNULTY on 08/21/21 1103 Last Action: Discontinued Pantoprazole Sodium (Pantoprazole Sodium) 40 Mg Tablet.dr, 40 MG PO DAILY Discontinued Reason: No Longer Taking Prescribed by: ANJEL MCNULTY on 08/21/21 1103 Last Action: Discontinued Prednisone (Prednisone) 20 Mg Tab, 40 MG PO DAILY Discontinued Reason: No Longer Taking Prescribed by: ADELINA COLMENARES on 02/17/23 1327 Last Action: Discontinued Sucralfate (Carafate) 1 Gram Tablet, 1 GM PO QID Discontinued Reason: No Longer Taking Prescribed by: ADELINA COLMENARES on 02/16/23 0922 Last Action: Discontinued Past Raoaoyl-Hvbvef-Pbttoe Hx Patient Social History Smoking Status: Former Smoker (1PPD quit around 2 years ago.) Type Used: Cigarettes 2nd Hand Smoke Exposure: Yes Recent Hopitalizations: No Alcohol Use?: Yes (1 drink per year) Immunizations Up To Date Tetanus Booster (TDap): Unknown Date of Influenza Vaccine: Jul 28, 2018 Surgeries History of Surgeries: Yes (lipoma removed from the left side of back; HYST/BSO; T&A) Surgeries: Hysterectomy, Oophorectomy, Tonsillectomy Respiratory History of Respiratory Disorde: Yes (O2 DEPENDENT AT 2 - 2 1/2 L/NC CO NTINUOUSLY. 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 Genitourinary History of Genitourinary Disor: No Gastrointestinal History of Gastrointestinal Di: Yes Gastrointestinal Disorders: Gastroesophageal Reflux Musculoskeletal History of Musculoskeletal Dis: No Endocrine History of Endocrine Disorders: No HEENT History of HEENT Disorders: Yes (READING GLASSES, DENTURES) Loss of Vision: Denies Hearing Impairment: Denies Cancer History of Cancer: No Psychosocial History of Psychiatric Problem: No Integumentary History of Skin or Integumenta: No Blood Transfusions History of Blood Disorders: No Adverse Reaction to a Blood Tr: No (N/A) Family Medical History Significant Family History: Cancer (lung cancer), CAD Under 55 Years Old, Diabetes (mother with Type 1 DM) Review of Systems-General Constitutional: chills (for a few days), dizziness (last 2 days); No fever; other (Fatigue) EENTM: No ear pain, No blurred vision, No double vision, No eye pain, No vision loss Respiratory: No cough, No hemoptysis, No short of breath Cardiovascular: chest pain; No palpitations Gastrointestinal: abdominal pain (epigastric region), nausea; No vomiting Genitourinary: No dysuria Psychiatric/Neurological: Denies Depressed Physical Exam-General Problems Physical Exam Vital Signs Vital Signs - First Documented 07/25/23 22:39 Temp 36.9 Pulse 107 Resp 18 B/P (MAP) 151/88 (109) Pulse Ox 95 O2 Delivery Nasal Cannula O2 Flow Rate 2.00 Capillary Refill : Less Than 3 Seconds General Appearance: no apparent distress, obese HEENT: PERRL/EOMI; No scleral icterus (R), No scleral icterus (L) Respiratory: lungs clear Cardiovascular: regular rate, rhythm, no edema, no murmur Peripheral Pulses: 3+ Dorsalis Pedis (R), 3+ Left Dors-Pedis (L), 3+ Radial Pulses (R), 3+ Radial Pulses (L) Gastrointestinal: normal bowel sounds, no organomegaly, guarding, tenderness (Epigastric) Extremities: no pedal edema Neurologic/Psychiatric: alert Skin: normal color, warm/dry Data Review Labs Laboratory Tests 07/25/23 22:42: White Blood Count 20.8H, Red Blood Count 4.88, Hemoglobin 14.5, Hematocrit 44, Mean Corpuscular Volume 89, Mean Corpuscular Hemoglobin 30, Mean Corpuscular Hemoglobin Concent 33, Red Cell Distribution Width 13.5, Platelet Count 348, Mean Platelet Volume 8.8L, Immature Granulocyte % (Auto) 1, Neutrophils (%) (Auto) 68, Lymphocytes (%) (Auto) 21, Monocytes (%) (Auto) 9, Eosinophils (%) (Auto) 1, Basophils (%) (Auto) 1, Neutrophils # (Auto) 14.2H, Lymphocytes # (Auto) 4.3H, Monocytes # (Auto) 1.9H, Eosinophils # (Auto) 0.2, Basophils # (Auto) 0.1, Immature Granulocyte # (Auto) 0.2H, Neutrophils % (Manual) 68, Lymphocytes % (Manual) 23, Monocytes % (Manual) 7, Eosinophils % (Manual) 1, Reactive Lymphocytes 1, Platelet Estimate ADEQUATE, Stomatocytes SLIGHT, Prothrombin Time 12.6, INR Comment 0.9, Activated Partial Thromboplast Time 24, Sodium Level 137, Potassium Level 3.6, Chloride Level 101, Carbon Dioxide Level 21, Anion Gap 15H, Blood Urea Nitrogen 14, Creatinine 0.91, Estimat Glomerular Filtration Rate 71, BUN/Creatinine Ratio 15, Glucose Level 126H, Calcium Level 9.3, Corrected Calcium 9.3, Total Bilirubin 0.7, Aspartate Amino Transf (AST/SGOT) 20, Alanine Aminotransferase (ALT/SGPT) 29, Alkaline Phosphatase 98, C-Reactive Protein High Sensitivity 3.82H, Total Protein 6.8, Albumin 4.0, Amylase Level 92, Lipase 17 07/25/23 22:55: Urine Color ORANGE, Urine Clarity CLEAR, Urine pH 5.5, Urine Specific [place] >=1.030, Urine Protein 1+H, Urine Glucose (UA) NEGATIVE, Urine Ketones NEGATIVE, Urine Nitrite NEGATIVE, Urine Bilirubin 1+H, Urine Urobilinogen 0.2, Urine Leukocyte Esterase 1+H, Urine RBC (Auto) 1+H, Urine RBC 0-2, Urine WBC 5-10H, Ur ine Squamous Epithelial Cells >50H, Urine Crystals NONE, Urine Bacteria TRACE, Urine Casts NONE, Urine Mucus MODERATEH, Urine Yeast FEWH, Urine Culture Indicated CULTURE PENDING 07/25/23 23:03: Lactic Acid Level 1.09 07/26/23 06:10: White Blood Count 14.0H, Red Blood Count 4.24, Hemoglobin 12.6, Hematocrit 38, Mean Corpuscular Volume 89, Mean Corpuscular Hemoglobin 30, Mean Corpuscular Hemoglobin Concent 34, Red Cell Distribution Width 13.6, Platelet Count 283, Mean Platelet Volume 8.7L, Immature Granulocyte % (Auto) 1, Neutrophils (%) (Auto) 61, Lymphocytes (%) (Auto) 28, Monocytes (%) (Auto) 10, Eosinophils (%) (Auto) 1, Basophils (%) (Auto) 0, Neutrophils # (Auto) 8.5H, Lymphocytes # (Auto) 3.9, Monocytes # (Auto) 1.4H, Eosinophils # (Auto) 0.2, Basophils # (Auto) 0.1, Immature Granulocyte # (Auto) 0.1, Sodium Level 138, Potassium Level 3.6, Chloride Level 102, Carbon Dioxide Level 24, Anion Gap 12, Blood Urea Nitrogen 12, Creatinine 0.79, Estimat Glomerular Filtration Rate 85, BUN/Creatinine Ratio 15, Glucose Level 100, Calcium Level 8.5, Magnesium Level 2.3 Radiology Chest radiograph 07/23 Impression: 1. No acute cardiopulmonary process by portable radiography. CT Chest/ Abdomen/ Pelvis 07/25 IMPRESSION: 1. No acute abnormalities seen within the chest, abdomen, or pelvis. 2. Advanced emphysematous changes with mild to moderate calcified aortic arch atherosclerosis. Correlation with history of smoking is advised. 3. Perivascular fat stranding surrounding the celiac artery extending into the common and proper hepatic arteries. Findings may be seen with underlying vasculitis. Assessment/Plan Assessment/Plan Assessment/Plan Epigastric Pain Leukocytosis Suspected Vasculitis History of Reflux symptoms COPD Plan: No indication for surgical intervention. Surgery will sign off. KURTIS HAGAN DO 07/29/23 1440: History of Present Illness History of Present Illness Time Seen by Provider: 08:35 History of Present Illness Surgery asked to consult regarding Abdominal pain. HPI per ED: PT ARRIVES VIA POV FROM HOME, PT C/O EPIGASTRIC PAIN AND CRAMPING SINCE SATURDAY. + NAUSEA, NO VOMITING, + DIARRHEA FOR 3-4 DAYS, NO BM TODAY, HAD 1 WATERY STOOL YESTERDAY. NO BLACK/BLOODY/TARRY STOOLS NO FEVER, NO URINARY SYMPTOMS AND VOIDING A NORMAL AMOUNT, STATES SHE "CAN'T EAT" BUT IS TAKING LIQUIDS WELL, SHE HAD CHICKEN NOODLE SOUP FOR LUNCH, OTHERW ISE SHE HAS JUST HAD LIQUIDS TODAY, PT HAS COPD--O2 DEPENDENT AT 2- 2 1/2 L/NC CONTINOUSLY -- AND HTN. PT STATES SHE WAS TREATED FOR RESPIRATORY SYMPTOMS "LAST WEEK" AND GOT A "Z-PACK AND AND AUGMENTIN", PT DOES NOT REPORT THAT SHE WAS PRESCRIBED PREDNISONE PER MED RECONCILIATION, PT WAS ACTUALLY PRESCRIBED PREDNISONE--NOT "Z-PACK", SHE WAS SEEN AT DR. MCNULTY'S OFFICE 07/12/23 FOR RESPIRATORY SYMPTOMS AND WAS PRESCRIBED PREDNISONE. SHE WAS SEEN AGAIN 07/19/23 FOR RESPIRATORY SYMPTOMS AND WAS PRESCRIBED ANOTHER ROUND OF PREDNISONE AND AUGMENTIN, THOSE SYMPTOMS ARE BETTER. SHE SEES DR. ARREOLA FOR PULMONOLOGY AND SHE USES ALBUTEROL INHALER, FLUTICASONE, MONTELUKAST AND BREZTRI INHALER. PT HAS HAD HYSTERECTOMY/ BILATERAL SALPINGO-OOPHORECTOMY. NO OTHER ABDOMINAL SURGERIES. NO HISTORY OF GI PROBLEMS. When I spoke to pt she stated she had never had pain like this before. Denies any RUQ pain and no problems with fried or fatty foods. She has never had an EGD and is not sure about colonoscopy. Allergies and Home Medications Allergies Coded Allergies: amoxicillin (Verified Allergy, Mild, RASH, 05/11/19) Patient Home Medication List Home Medication List Reviewed: Yes Acetaminophen (Tylenol) 325 Mg Tablet, 650 MG PO Q6H PRN for PAIN-MILD (1-4), (Reported) Entered as Reported by: DHIRAJ GILL on 07/29/23905 Last Action: Reviewed Albuterol Sulfate (Ventolin Hfa) 18 Gm Hfa.aer.ad, 2 PUFF INH Q6H PRN for SHORTNESS OF BREATH, (Reported) Entered as Reported by: ARJ SAMANIEGO on 08/21/21 1006 Last Action: Reviewed Amlodipine Besylate (Amlodipine Besylate) 5 Mg Tablet, 5 MG PO DAILY, (Reported) Entered as Reported by: JUDY ANDREWS on 05/11/19 1404 Last Action: Reviewed Budesonide/Glycopyr/Formoterol (Breztri Aerosphere Inhaler) 160 Mcg-9 Mcg-4.8 Mcg/Actuation Hfa.aer.ad, 2 PUFF IH BID, (Reported) Entered as Reported by: DHIRAJ GILL on 07/29/23905 Last Action: Reviewed Bupropion HCl (Wellbutrin Sr) 150 Mg Tablet.er, 150 MG PO 0700,1600, (Reported) Entered as Reported by: JUDY ANDREWS on 05/11/19 1404 Last Action: Reviewed Fexofenadine HCl (Kari Allergy) 60 Mg Tablet, 60 MG PO DAILY PRN for ALLERGIES, (Reported) Entered as Reported by: DHIRAJ GILL on 07/29/23905 Last Action: Reviewed Hydroxyzine HCl (Hydroxyzine HCl) 10 Mg Tablet, 10 MG PO DAILY PRN for ANXIETY, (Reported) Entered as Reported by: DHIRAJ GILL on 07/29/23905 Last Action: Reviewed Discontinued Medications Azithromycin (Azithromycin) 250 Mg Tablet, 250 MG PO UD Discontinued Reason: No Longer Taking Prescribed by: ADELINA COLMENARES on 02/17/23 1327 Last Action: Discontinued Budesonide/Formoterol Fumarate (Symbicort 160-4.5 Mcg Inhaler) 10.2 Gm Hfa.aer.ad, 2 PUFF IH BID, (Reported) Discontinued Reason: No Longer Taking Entered as Reported by: JUDY ANDREWS on 05/11/19 1404 Last Action: Discontinued Budesonide/Glycopyr/Formoterol (Breztri Aerosphere Inhaler) 160 Mcg-9 Mcg-4.8 Mcg/Actuation Hfa.aer.ad, 10.7 GM IH BID Discontinued Reason: Duplicate Order Prescribed by: KIN HUYNH on 07/26/23 0592 Last Action: Discontinued Hyoscyamine Sulfate (Levsin-Sl) 0.125 Mg Tab.subl, 0.125 MG SL QID Discontinued Reason: No Longer Taking Prescribed by: ANJEL MCNULTY on 08/21/21 110 Last Action: Discontinued Pantoprazole Sodium (Pantoprazole Sodium) 40 Mg Tablet.dr, 40 MG PO DAILY Discontinued Reason: No Longer Taking Prescribed by: ANJEL MCNULTY on 08/21/21 1103 Last Action: Discontinued Prednisone (Prednisone) 20 Mg Tab, 40 MG PO DAILY Discontinued Reason: No Longer Taking Prescribed by: ADELINA COLMENARES on 02/17/23 1327 Last Action: Discontinued Sucralfate (Carafate) 1 Gram Tablet, 1 GM PO QID Discontinued Reason: No Longer Taking Prescribed by: ADELINA COLMENARES on 02/16/23 0922 Last Action: Discontinued Past Ibjbbrl-Wkkifk-Fdjdsk Hx Family Medical History Significant Family History: Cancer (lung cancer), CAD Under 55 Years Old, Diabetes (mother with Type 1 DM) Physical Exam-General Problems Physical Exam Gastrointestinal: guarding (with deep palpation subxiphoid) Assessment/Plan Assessment/Plan Assessment/Plan Epigastric Pain Leukocytosis Suspected Vasculitis History of Reflux symptoms COPD Plan: No indication for surgical intervention at this time. I would recommend EGD and colonoscopy as outpt. I believe her Vasculitis should be worked up. Supervisory-Addendum Brief Verification & Attestation Participated in pt care: history, MDM, physical Personally performed: exam, history, MDM, supervision of care Care discussed with: Medical Student Procedures: n/a Verification and Attestation of Medical Student E/M Service A medical student performed and documented this service. I then reviewed and verified all information documented by the medical student and made modifications to such information, when appropriate. I personally performed a physical exam, medical decision making and then discussed any differences between the notes and made revisions as necessary to create one note. Kurtis Hagan , 07/29/23 , 14:40 JUANA GODOY Jul 26, 2023 09:27 KURTIS HAGAN DO Jul 29, 2023 14:40
[2023-07-26 11:10] LABS: ALBUMIN 3.3 GM/DL (3.2-4.5)
[2023-07-26 11:13] LABS: TOTAL PROTEIN 5.4 GM/DL (6.4-8.2)
[2023-07-26 11:15] LABS: BILIRUBIN,TOTAL 0.7 MG/DL (0.1-1.0)
[2023-07-26] MEDS ORDERED: PANTOPRAZOLE 40 MG TABLET PO SCH (11:15)
[2023-07-26 11:19] LABS: BILIRUBIN,DIRECT 0.3 MG/DL (0.0-0.3); BILIRUBIN,INDIRECT 0.4 MG/DL
[2023-07-26] MEDS: SUCRALFATE 1 GM TABLET PO SCH ×3 (11:27→19:40)
[2023-07-26] MEDS: CEFEPIME INJECTION 1,000 MG in NS (IVPB) 50 ML 50 ML IV SCH ×3 (11:29→22:13)
--- NOTE | 2023-07-26 11:36 | Tele-ICU Consult ---
History of Present Illness History of Present Illness Date Seen by Provider: Jul 26, 2023 Time Seen by Provider: 11:34 Date of Admission 07/25/23 Reason for Visit: Epigastric/ Abdominal Pain History of Present Illness (Tele-ICU Physician , Progress Note ) Service provided via interactive audio and video telecommunreal trends E-CARE system to a patient admitted to ICU bed in [facility]. Patient is seen today due to persistent need of ICU care Available chart/ vitals / labs / Images reviewed Video assessment done using teleICU camera, rest of exam as per RN She is a 62-year-old female with past medical history of GERD, COPD on home oxygen recently treated for respiratory symptoms with a Z-Ppeito and Augmentin. Last night she presented to the emergency room with a complaint of epigastric pain cramping-like preceded by 3 to 4 days of diarrhea. No fever present however she has had nausea without vomiting. His CT of the abdomen and pelvis and chest was done which showed emphysema changes and fat stranding around the mesenteric vessels suggestive of vasculitis. She is admitted for further evaluation and management. She was seen by surgery and felt there no surgical condition requiring surgery. Impression 1. Acute abdominal pain associated with leukocytosis and the possibility of vasculitis 2. Rule out acute cholecystitis 3. Rule out any C. difficile colitis 4. History of GERD 5. History of severe COPD on home oxygen 6. Moderate obesity. Recommendations 1. Start on IV antibiotic until we know Farver about her abdominal condition 2. We will get ultrasonogram of the abdomen to rule out any acute cholecystitis 3. Send stool for C. difficile toxin. 4. Hydrate patient. 5. Blood cultures and urine cultures have requested. 6. Further course of action depends on her clinical course and laboratory data. Coordination of care with primary care physician and bedside consultants. I am remotely monitoring this patient from Tele icu station in [place]. I am unable to do the bedside exam, and history/physical and pertinent information is taken from other notes in the computer and bedside staff. Certain portions of this document may have been dictated utilizing voice recognition technology such as [employer]lett[employer]. Inherent to this technology, typographical and grammatical errors may exist. As much as I am diligent to identify and correct to these mistakes, some errors may remain in the document. Critical care time devoted to this patient today is approximately is-30 minutes Allergies and Home Medications Allergies Coded Allergies: amoxicillin (Verified Allergy, Mild, RASH, 05/11/19) Home Medications Albuterol Sulfate 18 Gm Hfa.aer.ad, 2 PUFF INH Q6H PRN for SHORTNESS OF BREATH, (Reported) Amlodipine Besylate 5 Mg Tablet, 5 MG PO DAILY, (Reported) Budesonide/Glycopyr/Formoterol 160 Mcg-9 Mcg-4.8 Mcg/Actuation Hfa.aer.ad, 10.7 GM IH BID Prescribed by: KIN HUYNH on 07/26/23 0545 Bupropion HCl 150 Mg Tablet.er, 150 MG PO 0700,1600, (Reported) Past Medical/Social/Family Hx Patient Social History Tobacco Use?: Yes Tobacco type used: Cigarettes Smoking Status: Former Smoker (1PPD quit around 2 years ago.) Smokeless Tobacco Frequency: Never a User Use of E-Cig and/or Vaping dev: No Substance use?: No Alcohol Use?: Yes (1 drink per year) Pt stated abuse/neglect: No Immunizations Up To Date Influenza Vaccine Up-to-Date: Yes; Up-to-Date First/Initial COVID19 Vaccinat: x3 Second COVID19 Vaccination Stanislaw: x3 Tetanus Booster (TDap): Unknown Current Status status: No Advance Directives: No Communicates: Verbally Primary Language: Maltese Preferred Spoken Language: Maltese Is interpretation needed?: No Family Medical History Family Hx: SOCIAL HISTORY: -SMOKED 1 PPD, QUIT 04/2021 -ETOH--DENIES USE -DRUGS--DENIES USE PAST SURGICAL HISTORY: -LAVH / BSO 2008 -TONSILLECTOMY Review of Systems Constitutional: see HPI, other (epigastric pain) Focused Exam Lactate Level 07/25/23 23:03: Lactic Acid Level 1.09 Height, Weight, BMI Height: 4'11.00" Weight: 132lbs. 0.0oz. 59.900261gt; 36.46 BMI Method: Exam Exam Patient acknowledged, consented, and participated in this virtual visit which was conducted using real time audio/video Vital Signs Date Time Temp Pulse Resp B/P (MAP) Pulse Ox O2 Delivery O2 Flow Rate FiO2 07/26/23 11:00 84 18 122/67 (82) 95 Nasal Cannula 2.00 07/26/23 10:00 79 21 118/63 (82) 95 Nasal Cannula 2.00 07/26/23 09:00 80 12 122/67 (77) 96 Nasal Cannula 2.00 07/26/23 08:00 80 18 126/56 (92) 99 Nasal Cannula 2.00 07/26/23 07:41 36.4 07/26/23 07:00 75 07/26/23 07:00 76 16 132/67 (90) 98 Nasal Cannula 2.00 07/26/23 06:05 74 15 121/65 (83) 98 Nasal Cannula 2.00 07/26/23 05:19 74 07/26/23 05:15 36.5 76 17 124/69 (88) 96 Nasal Cannula 2.00 07/26/23 05:04 119/69 (92) 07/26/23 05:00 Nasal Cannula 2.00 07/26/23 04:39 36.9 80 16 108/66 95 Nasal Cannula 2.00 07/25/23 22:39 36.9 107 18 151/88 (109) 95 Nasal Cannula 2.00 07/25/23 22:39 Nasal Cannula 2.00 I & O 07/26/23 07:00 Intake Total 1000 ml Output Total 600 ml Balance 400 ml Height & Weight Height: 4'11.00" Weight: 132lbs. 0.0oz. 59.065820vf; 36.46 BMI Method: General Appearance: Anxious, Obese Capillary Refill: Less Than 3 Seconds Peripheral Pulses: 3+ Dorsalis Pedis (R), 3+ Left Dors-Pedis (L), 3+ Radial Pulses (R), 3+ Radial Pulses (L) Gastrointestinal: normal bowel sounds, no organomegaly, guarding, tenderness (Epigastric) Results Lab Laboratory Tests 07/25/23 22:42 07/26/23 06:10 Assessment/Plan Assessment/Plan as above Critical Care: Critically Ill Patient Time spent with patient (mins): 30 TAVARES FREEDMAN MD Jul 26, 2023 11:36
--- NOTE | 2023-07-26 11:59 | Diagnostic Imaging Report ---
INDICATION: Abdominal pain and abnormal recent CT scan demonstrating fat stranding around the celiac and proximal hepatic arteries. PROCEDURE: Ultrasound abdomen complete. TECHNIQUE: Multiple real-time grayscale images were obtained of the abdomen in various projections. COMPARISON: Comparison is made with prior CT from one day earlier. FINDINGS: Liver is normal in size at 16 cm. Portal vein is patent and shows normal direction of flow. Gallbladder is without stones or sludge. There is no wall thickening or biliary ductal dilatation. Visualized pancreas is unremarkable. Spleen is normal in size at 8.6 cm. Aorta is nonaneurysmal. IVC is patent. Right kidney measures 9.6 cm and left kidney measures 9.2 cm. There is no hydronephrosis. There is no ascites. IMPRESSION: Unremarkable abdominal ultrasound. Dictated by: Dictated on workstation # [id number]
--- NOTE | 2023-07-26 12:19 | Progress Note-Pre Operative ---
Pre-Operative Progress Note Date of Available H&P: Jul 26, 2023 Date H&P Reviewed: Jul 26, 2023 Time H&P Reviewed: 12:00 History & Physical: No changes noted Pre-Operative Diagnosis: Upper GI bleed GUMARO WHITNEY MD Jul 26, 2023 12:19
--- NOTE | 2023-07-26 12:39 | History & Physical ---
HIGGINSSUSANCHEMA 07/26/23 1239: History of Present Illness History of Present Illness Reason for visit/HPI 62 year old female with a history of COPD who presents having chest pain/epigastric pain. Patient went to the ER originally a few days ago for GI discomfort and pain. This was attributed to the antibiotics and prendisone she was taking at the time. Patient presented yesterday with pain that radiated to her back. She said it felt like a tearing sensation and it was a 10/10. Patient now reports feeling much better after IV fluids and pain control. Patient was prescriped a PPI a week ago for reflux but had not started it yet. Denies any nausea, vomitting, chest pain, or shortness of breath right now. Patient family at bedside. Patient is moving regularly to use the bathroom without discomfort. Date of Admission Jul 26, 2023 at 04:44 Time Seen by a Provider: 12:35 I consulted on this patient on 07/26/23 12:35 Attending Physician Anjel Hummel DO Admitting Physician Admitting Physician: Kaleigh Shine DO Attending Physician: Kaleigh Shine DO Consult Allergies and Home Medications Allergies Coded Allergies: amoxicillin (Verified Allergy, Mild, RASH, 05/11/19) Patient Home Medication List Albuterol Sulfate (Ventolin Hfa) 18 Gm Hfa.aer.ad, 2 PUFF INH Q6H PRN for SHORTNESS OF BREATH, (Reported) Entered as Reported by: RAJ SAMANIEGO on 08/21/21 1006 Last Action: Continued Amlodipine Besylate (Amlodipine Besylate) 5 Mg Tablet, 5 MG PO DAILY, (Reported) Entered as Reported by: JUDY ANDREWS on 05/11/19 0274 Last Action: Continued Budesonide/Glycopyr/Formoterol (Breztri Aerosphere Inhaler) 160 Mcg-9 Mcg-4.8 Mcg/Actuation Hfa.aer.ad, 10.7 GM IH BID Prescribed by: KIN HUYNH on 07/26/23 8128 Last Action: Converted Bupropion HCl (Wellbutrin Sr) 150 Mg Tablet.er, 150 MG PO 0700,1600, (Reported) Entered as Reported by: JUDY ANDREWS on 05/11/19 1404 Last Action: Continued Discontinued Medications Azithromycin (Azithromycin) 250 Mg Tablet, 250 MG PO UD Discontinued Reason: No Longer Taking Prescribed by: ADELINA COLMENARES on 02/17/23 1327 Last Action: Discontinued Budesonide/Formoterol Fumarate (Symbicort 160-4.5 Mcg Inhaler) 10.2 Gm Hfa.aer.ad, 2 PUFF IH BID, (Reported) Discontinued Reason: No Longer Taking Entered as Reported by: JUDY ANDREWS on 05/11/19 1404 Last Action: Discontinued Hyoscyamine Sulfate (Levsin-Sl) 0.125 Mg Tab.subl, 0.125 MG SL QID Discontinued Reason: No Longer Taking Prescribed by: ANJEL HUMMEL on 08/21/21 110 Last Action: Discontinued Pantoprazole Sodium (Pantoprazole Sodium) 40 Mg Tablet.dr, 40 MG PO DAILY Discontinued Reason: No Longer Taking Prescribed by: ANJEL HUMMEL on 08/21/21 110 Last Action: Discontinued Prednisone (Prednisone) 20 Mg Tab, 40 MG PO DAILY Discontinued Reason: No Longer Taking Prescribed by: ADELINA COLMENARES on 02/17/23 132 Last Action: Discontinued Sucralfate (Carafate) 1 Gram Tablet, 1 GM PO QID Discontinued Reason: No Longer Taking Prescribed by: ADELINA COLMENARES on 02/16/23 0922 Last Action: Discontinued Past Dpkitsp-Tmzjls-Uyvydx Hx Patient Social History Tobacco Use?: Yes Tobacco type used: Cigarettes Smoking Status: Former Smoker (1PPD quit around 2 years ago.) Smokeless Tobacco Frequency: Never a User Use of E-Cig and/or Vaping dev: No Substance use?: No Alcohol Use?: Yes (1 drink per year) Pt feels they are or have been: No Immunizations Up To Date Date of Influenza Vaccine: Jul 28, 2018 First/Initial COVID19 Vaccinat: x3 Second COVID19 Vaccination Stanislaw: x3 Tetanus Booster (TDap): Unknown Current Status status: No Advance Directives: No Communicates: Verbally Primary Language: Uruguayan Preferred Spoken Language: Uruguayan Is interpretation needed?: No Past Medical History Surgeries: Hysterectomy, Oophorectomy, Tonsillectomy COPD Currently Using CPAP: No Currently Using BIPAP: No 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 History: Hysterectomy Sexually Transmitted Disease: No HIV/AIDS: No Gastroesophageal Reflux Loss of Vision: Denies Hearing Impairment: Denies Blood Disorders: No Adverse Reaction/Blood Tranf: No (N/A) Family Medical History Cancer (lung cancer), CAD Under 55 Years Old, Diabetes (mother with Type 1 DM) SOCIAL HISTORY: -SMOKED 1 PPD, QUIT 04/2021 -ETOH--DENIES USE -DRUGS--DENIES USE PAST SURGICAL HISTORY: -LAVH / BSO 2008 -TONSILLECTOMY Physical Exam Vital Signs Vital Signs - First Documented 07/25/23 22:39 Temp 36.9 Pulse 107 Resp 18 B/P (MAP) 151/88 (109) Pulse Ox 95 O2 Delivery Nasal Cannula O2 Flow Rate 2.00 Capillary Refill : Less Than 3 Seconds Height, Weight, BMI Height: 4'11.00" Weight: 132lbs. 0.0oz. [id number]; 36.46 BMI Method: Assessment/Plan Assessment and Plan Assessment Epigastric Pain Leukocytosis Vasculitis COPD Plan: PPI Pain control IV Fluids KALEIGH SHINE DO 07/26/232129: History of Present Illness History of Present Illness Reason for visit/HPI Chief complaint: Abdominal pain HPI: This is a 62-year-old female Who presented to the ER with abdominal pain was found to have findings consistent with vasculitis on CT scan. General surgery was consulted and will likely undergo EGD tomorrow. Allergies and Home Medications Allergies Coded Allergies: amoxicillin (Verified Allergy, Mild, RASH, 05/11/19) Patient Home Medication List Home Medication List Reviewed: Yes Albuterol Sulfate (Ventolin Hfa) 18 Gm Hfa.aer.ad, 2 PUFF INH Q6H PRN for SHORTNESS OF BREATH, (Reported) Entered as Reported by: RAJ SAMANIEGO on 08/21/21 1006 Last Action: Continued Amlodipine Besylate (Amlodipine Besylate) 5 Mg Tablet, 5 MG PO DAILY, (Reported) Entered as Reported by: JUDY ANDREWS on 05/11/19 1404 Last Action: Continued Budesonide/Glycopyr/Formoterol (Breztri Aerosphere Inhaler) 160 Mcg-9 Mcg-4.8 Mcg/Actuation Hfa.aer.ad, 10.7 GM IH BID Prescribed by: KIN HUYNH on 07/26/23 5622 Last Action: Converted Bupropion HCl (Wellbutrin Sr) 150 Mg Tablet.er, 150 MG PO 00,1600, (Reported) Entered as Reported by: JUDY ANDREWS on 05/11/19 140 Last Action: Continued Discontinued Medications Azithromycin (Azithromycin) 250 Mg Tablet, 250 MG PO UD Discontinued Reason: No Longer Taking Prescribed by: ADELINA COLMENARES on 02/17/23 1327 Last Action: Discontinued Budesonide/Formoterol Fumarate (Symbicort 160-4.5 Mcg Inhaler) 10.2 Gm Hfa.aer.ad, 2 PUFF IH BID, (Reported) Discontinued Reason: No Longer Taking Entered as Reported by: JUDY ANDREWS on 05/11/19 140 Last Action: Discontinued Hyoscyamine Sulfate (Levsin-Sl) 0.125 Mg Tab.subl, 0.125 MG SL QID Discontinued Reason: No Longer Taking Prescribed by: ANJEL HUMMEL on 08/21/21 110 Last Action: Discontinued Pantoprazole Sodium (Pantoprazole Sodium) 40 Mg Tablet.dr, 40 MG PO DAILY Discontinued Reason: No Longer Taking Prescribed by: ANJEL HUMMEL on 08/21/21 110 Last Action: Discontinued Prednisone (Prednisone) 20 Mg Tab, 40 MG PO DAILY Discontinued Reason: No Longer Taking Prescribed by: ADELINA COLMENARES on 02/17/23 132 Last Action: Discontinued Sucralfate (Carafate) 1 Gram Tablet, 1 GM PO QID Discontinued Reason: No Longer Taking Prescribed by: ADELINA COLMENARES on 02/16/23 0922 Last Action: Discontinued Past Dztmxfz-Jtgdqe-Bwkhig Hx Patient Social History Marrital Status: Employed/Student: retired Smoking Status: Former Smoker Past Medical History COPD High Cholesterol, Hypertension Review of Systems Constitutional: see HPI, malaise, weakness Gastrointestinal: abdominal pain, loss of appetite, nausea Physical Exam General Appearance: No Apparent Distress, WD/WN, Chronically ill, Obese Eyes: Bilateral Eye Normal Inspection, Bilateral Eye PERRL, Bilateral Eye EOMI HEENT: PERRL/EOMI, Normal ENT Inspection, Pharynx Normal Neck: Full Range of Motion, Normal Inspection, Non Tender, Supple, Carotid Bruit Respiratory: Chest Non Tender, Lungs Clear, Normal Breath Sounds, No Accessory Muscle Use, No Respiratory Distress Cardiovascular: Regular Rate, Rhythm, No Edema, No Gallop, No JVD, No Murmur, Normal Peripheral Pulses Gastrointestinal: Normal Bowel Sounds, No Organomegaly, No Pulsatile Mass, Soft, Abnormal Bowel Sounds, Tenderness Back: Normal Inspection, No CVA Tenderness, No Vertebral Tenderness Extremity: Normal Capillary Refill, Normal Inspection, Normal Range of Motion, Non Tender, No Calf Tenderness, No Pedal Edema Neurologic/Psychiatric: Alert, Oriented x3, No Motor/Sensory Deficits, Normal Mood/Affect Skin: Normal Color, Warm/Dry Lymphatic: No Adenopathy Assessment/Plan Assessment and Plan Abdominal pain Abdominal vasculitis Plan: Moved to fourth floor Supportive care Admission Diagnosis Admission Status: Inpatient Order (span 2 midnights) Reason for Inpatient Admission: vasculitis Supervisory-Addendum Brief Verification & Attestation Participated in pt care: history, MDM, physical Personally performed: exam, history, MDM, supervision of care Care discussed with: Medical Student Procedures: n/a Results interpretation: Verified all documentation Verification and Attestation of Medical Student E/M Service A medical student performed and documented this service in my presence. I reviewed and verified all information documented by the medical student and made modifications to such information, when appropriate. I personally performed the physical exam and medical decision making. Kaleigh Shine, Jul 26, 2023,21:30 HENRIK HIGGINS Jul 26, 2023 12:39 KALEIGH SHINE DO Jul 26, 2023 21:30
[2023-07-26] MEDS: FLUTICASONE/VILANTEROL 200/25 MCG (7 DOSES) IH SCH (12:41)
[2023-07-26] MEDS: ENOXAPARIN 40 MG/0.4 ML SYRINGE SC SCH (12:42)
[2023-07-26] MEDS: TIOTROPIUM INH 4 GM (SPIRIVA Respimat) IH SCH (12:42)
--- NOTE | 2023-07-26 13:30 | Physical Therapy Progress Note ---
Therapy Progress Note Patient declined PT stating she is independent and doesn't need skilled PT. Family confirms. No PT indicated. LENARD FISHER PT Jul 26, 2023 13:30
[2023-07-26] MEDS: ACETAMINOPHEN 500 MG TABLET PO PRN (15:38)
[2023-07-26] MEDS: buPROPion SR 150 MG TABLET PO SCH ×2 (15:40→16:33)
[2023-07-26 16:00] VITALS: BP 112/71
[2023-07-26] MEDS: PANTOPRAZOLE 40 MG TABLET PO SCH (19:40)
[2023-07-26 20:34] VITALS: BP 117/75
[2023-07-26] MEDS ORDERED: NON-FORMULARY MEDICATION 1 EA EA (Budesonide/Glycopyr/Formoterol (Breztri Aerosphere Inhal IH SCH (21:00)
--- NOTE | 2023-07-26 21:11 | Progress Note ---
Subjective Date Seen by a Provider: Jul 26, 2023 Time Seen by a Provider: 11:00 Subjective/Events-last exam patient doing better since admission. still has epigastric and upper abd crampy pain. hx of COPD exacerbation requiring recent admissions and steroid therapy. one year hx of GERD and PUD sx and currently on pepcid BID. hb stable. u/s GB normal however may need an OP HIDA. Focused Exam Lactate Level 07/25/23 23:03: Lactic Acid Level 1.09 Objective Exam Vital Signs Date Time Temp Pulse Resp B/P (MAP) Pulse Ox O2 Delivery O2 Flow Rate FiO2 07/26/23 20:34 36.3 86 20 117/75 (89) 97 Nasal Cannula 2.00 07/26/23 19:40 Nasal Cannula 2.00 07/26/23 16:00 37.3 77 18 112/71 (85) 97 Nasal Cannula 2.00 07/26/23 14:52 96 Nasal Cannula 2.00 07/26/23 12:37 95 07/26/23 12:00 Nasal Cannula 2.00 07/26/23 12:00 86 22 127/65 (85) 95 Nasal Cannula 2.00 07/26/23 11:50 36.5 07/26/23 11:00 84 18 122/67 (82) 95 Nasal Cannula 2.00 07/26/23 10:00 79 21 118/63 (82) 95 Nasal Cannula 2.00 07/26/23 09:00 80 12 122/67 (77) 96 Nasal Cannula 2.00 07/26/23 08:00 Nasal Cannula 2.00 07/26/23 08:00 80 18 126/56 (92) 99 Nasal Cannula 2.00 07/26/23 07:41 36.4 07/26/23 07:00 75 07/26/23 07:00 76 16 132/67 (90) 98 Nasal Cannula 2.00 07/26/23 06:05 74 15 121/65 (83) 98 Nasal Cannula 2.00 07/26/23 05:19 74 07/26/23 05:15 36.5 76 17 124/69 (88) 96 Nasal Cannula 2.00 07/26/23 05:04 119/69 (92) 07/26/23 05:00 Nasal Cannula 2.00 07/26/23 04:39 36.9 80 16 108/66 95 Nasal Cannula 2.00 07/25/23 22:39 36.9 107 18 151/88 (109) 95 Nasal Cannula 2.00 07/25/23 22:39 Nasal Cannula 2.00 I & O 07/26/23 07:00 Intake Total 1000 ml Output Total 600 ml Balance 400 ml Capillary Refill : Less Than 3 Seconds General Appearance: No Apparent Distress HEENT: PERRL/EOMI Neck: Full Range of Motion Respiratory: Chest Non Tender, Rhonci, Wheezing Cardiovascular: Regular Rate, Rhythm Gastrointestinal: soft, tenderness Extremity: Normal Capillary Refill Neurologic/Psychiatric: Alert, Oriented x3 Skin: Normal Color Lymphatic: No Adenopathy Results Lab Laboratory Tests 07/25/23 22:42: White Blood Count 20.8H, Red Blood Count 4.88, Hemoglobin 14.5, Hematocrit 44, Mean Corpuscular Volume 89, Mean Corpuscular Hemoglobin 30, Mean Corpuscular Hemoglobin Concent 33, Red Cell Distribution Width 13.5, Platelet Count 348, Mean Platelet Volume 8.8L, Immature Granulocyte % (Auto) 1, Neutrophils (%) (Auto) 68, Lymphocytes (%) (Auto) 21, Monocytes (%) (Auto) 9, Eosinophils (%) (Auto) 1, Basophils (%) (Auto) 1, Neutrophils # (Auto) 14.2H, Lymphocytes # (Auto) 4.3H, Monocytes # (Auto) 1.9H, Eosinophils # (Auto) 0.2, Basophils # (Auto) 0.1, Immature Granulocyte # (Auto) 0.2H, Neutrophils % (Manual) 68, Lymphocytes % (Manual) 23, Monocytes % (Manual) 7, Eosinophils % (Manual) 1, Reactive Lymphocytes 1, Platelet Estimate ADEQUATE, Stomatocytes SLIGHT, Prothrombin Time 12.6, INR Comment 0.9, Activated Partial Thromboplast Time 24, Sodium Level 137, Potassium Level 3.6, Chloride Level 101, Carbon Dioxide Level 21, Anion Gap 15H, Blood Urea Nitrogen 14, Creatinine 0.91, Estimat Glomerular Filtration Rate 71, BUN/Creatinine Ratio 15, Glucose Level 126H, Calcium Level 9.3, Corrected Calcium 9.3, Total Bilirubin 0.7, Aspartate Amino Transf (AST/SGOT) 20, Alanine Aminotransferase (ALT/SGPT) 29, Alkaline Phosphatase 98, C-Reactive Protein High Sensitivity 3.82H, Total Protein 6.8, Albumin 4.0, Amylase Level 92, Lipase 17 07/25/23 22:55: Urine Color ORANGE, Urine Clarity CLEAR, Urine pH 5.5, Urine Specific Pollock >=1.030, Urine Protein 1+H, Urine Glucose (UA) NEGATIVE, Urine Ketones NEGATIVE, Urine Nitrite NEGATIVE, Urine Bilirubin 1+H, Urine Urobilinogen 0.2, Urine Leukocyte Esterase 1+H, Urine RBC (Auto) 1+H, Urine RBC 0-2, Urine WBC 5-10H, Urine Squamous Epithelial Cells >50H, Urine Crystals NONE, Urine Bacteria TRACE, Urine Casts NONE, Urine Mucus MODERATEH, Urine Yeast FEWH, Urine Culture Indicated CULTURE PENDING 07/25/23 23:03: Lactic Acid Level 1.09 07/26/23 06:10: White Blood Count 14.0H, Red Blood Count 4.24, Hemoglobin 12.6, Hematocrit 38, Mean Corpuscular Volume 89, Mean Corpuscular Hemoglobin 30, Mean Corpuscular Hemoglobin Concent 34, Red Cell Distribution Width 13.6, Platelet Count 283, Mean Platelet Volume 8.7L, Immature Granulocyte % (Auto) 1, Neutrophils (%) (Auto) 61, Lymphocytes (%) (Auto) 28, Monocytes (%) (Auto) 10, Eosinophils (%) (Auto) 1, Basophils (%) (Auto) 0, Neutrophils # (Auto) 8.5H, Lymphocytes # (Auto) 3.9, Monocytes # (Auto) 1.4H, Eosinophils # (Auto) 0.2, Basophils # (Auto) 0.1, Immature Granulocyte # (Auto) 0.1, Sodium Level 138, Potassium Level 3.6, Chloride Level 102, Carbon Dioxide Level 24, Anion Gap 12, Blood Urea Nitrogen 12, Creatinine 0.79, Estimat Glomerular Filtration Rate 85, BUN/Creatinine Ratio 15, Glucose Level 100, Calcium Level 8.5, Total Bilirubin 0.7, Aspartate Amino Transf (AST/SGOT) 30, Alanine Aminotransferase (ALT/SGPT) 43, Alkaline Phosphatase 77, Total Protein 5.4L, Albumin 3.3, Magnesium Level 2.3, Direct Bilirubin 0.3, Indirect Bilirubin 0.4 Microbiology 07/25/23 Blood Culture - Preliminary, Resulted Assessment/Plan Assessment/Plan Assess & Plan/Chief Complaint epigastric pain with hx GERD and PUD with 2 recent episodes of COPD exacerbation requiring steroid therapy. stress and glucorticoid induced GERD and PUD. will plan for EGD with bx on this admission. GUMARO WHITNEY MD Jul 26, 2023 21:11
[2023-07-27] VITALS (9 sets, daily range): BP systolic 110–156; BP diastolic 55–87
[2023-07-27] MEDS: ACETAMINOPHEN 500 MG TABLET PO PRN (01:01)
[2023-07-27] MEDS: fentaNYL INJECTION 100 MCG/2 ML VIAL IV PRN ×3 (01:02→07:59)
[2023-07-27] MEDS: ONDANSETRON INJECTION 4 MG/2 ML (SDV) IV PRN ×3 (01:34→16:15)
[2023-07-27] MEDS: LACTATED RINGERS 1,000 ML 1,000 ML IV SCH ×2 (03:46→20:40)
[2023-07-27] MEDS: SUCRALFATE 1 GM TABLET PO SCH ×4 (05:13→21:42)
[2023-07-27] MEDS: CEFEPIME INJECTION 1,000 MG in NS (IVPB) 50 ML 50 ML IV SCH ×4 (05:13→22:20)
[2023-07-27 05:52] LABS: BASOPHILS # (AUTO) 0.1 10^3/uL (0.0-0.1); BASOPHILS % (AUTO) 1 % (0-10); EOSINOPHILS # (AUTO) 0.3 10^3/uL (0.0-0.3); EOSINOPHILS % (AUTO) 3 % (0-10); HEMATOCRIT 34 % (35-52); LYMPHOCYTES # (AUTO) 3.2 10^3/uL (1.0-4.0); LYMPHOCYTES % (AUTO) 32 % (12-44); MEAN CORPUSCULAR HEMOGLOBIN 29 pg (25-34); MEAN CORPUSCULAR HGB CONC 32 g/dL (32-36); MEAN CORPUSCULAR VOLUME 92 fL (80-99); MONOCYTES # (AUTO) 1.1 10^3/uL (0.0-1.0); MONOCYTES % (AUTO) 11 % (0-12); NEUTROPHILS # (AUTO) 5.4 10^3/uL (1.8-7.8); NEUTROPHILS % (AUTO) 54 % (42-75); PLATELET COUNT 256 10^3/uL (130-400)
[2023-07-27 06:02] LABS: ALBUMIN 2.9 GM/DL (3.2-4.5); POTASSIUM 4.4 MMOL/L (3.6-5.0)
[2023-07-27 06:03] LABS: CALCIUM 8.3 MG/DL (8.5-10.1)
[2023-07-27 06:05] LABS: TOTAL PROTEIN 4.9 GM/DL (6.4-8.2)
[2023-07-27 06:06] LABS: BILIRUBIN,TOTAL 0.5 MG/DL (0.1-1.0)
[2023-07-27] MEDS: POTASSIUM CL 10MEQ/50ML IVPB 50 ML IV SCH (06:07)
[2023-07-27] MEDS: POTASSIUM CHLORIDE 20 MEQ TABLET PO SCH (06:07)
[2023-07-27 06:08] LABS: CREATININE SERUM 0.7 MG/DL (0.60-1.30); PHOSPHORUS 3.6 MG/DL (2.3-4.7)
[2023-07-27] MEDS: buPROPion SR 150 MG TABLET PO SCH ×2 (06:08→16:14)
[2023-07-27 06:11] LABS: MAGNESIUM 2.2 MG/DL (1.6-2.4)
[2023-07-27] MEDS: MAGNESIUM 1 GM/100 ML IVPB 100 ML IV SCH (06:40)
[2023-07-27] MEDS: amLODIPine 5 MG TABLET PO SCH (08:00)
[2023-07-27] MEDS: PANTOPRAZOLE 40 MG TABLET PO SCH ×2 (08:00→19:17)
[2023-07-27] MEDS: KETOROLAC INJ 30 MG/ML VIAL IV PRN (08:22)
--- NOTE | 2023-07-27 09:10 | Progress Note ---
IHSAN TRENT MD,RESIDENT 07/27/23 0910: Progress Note Assessment/Plan Date Seen by Provider: Jul 27, 2023 Time Seen by Provider: 08:00 Events since last exam No acute events overnight. Pt still complains of pain flares throughout the day. Tolerating PO. Assessment/Plan Epigastric pain with hx GERD and PUD with 2 recent episodes of COPD exacerbation requiring steroid therapy. stress and glucorticoid induced GERD and PUD. will plan for EGD with bx 07/27 Vitals Last set of Vitals Signs Vital Signs Date Time Temp Pulse Resp B/P (MAP) Pulse Ox O2 Delivery O2 Flow Rate FiO2 07/27/23 08:00 Nasal Cannula 2.00 07/27/23 07:47 36.5 79 20 112/73 (86) 100 I&O I&O Intake and Output 07/27/23 00:00 Intake Total 3040 ml Output Total 1225 ml Balance 1815 ml Intake Oral 740 ml IV Total 2300 ml Output Urine Total 1225 ml # Voids 3 Daily Weight Change No Labs Laboratory Tests 07/27/23 05:23: White Blood Count 10.0, Red Blood Count 3.75L, Hemoglobin 11.0L, Hematocrit 34L, Mean Corpuscular Volume 92, Mean Corpuscular Hemoglobin 29, Mean Corpuscular Hemoglobin Concent 32, Red Cell Distribution Width 13.6, Platelet Count 256, Mean Platelet Volume 9.0, Immature Granulocyte % (Auto) 1, Neutrophils (%) (Auto) 54, Lymphocytes (%) (Auto) 32, Monocytes (%) (Auto) 11, Eosinophils (%) (Auto) 3, Basophils (%) (Auto) 1, Neutrophils # (Auto) 5.4, Lymphocytes # (Auto) 3.2, Monocytes # (Auto) 1.1H, Eosinophils # (Auto) 0.3, Basophils # (Auto) 0.1, Immature Granulocyte # (Auto) 0.1, Sodium Level 141, Potassium Level 4.4, Chloride Level 107, Carbon Dioxide Level 27, Anion Gap 7, Blood Urea Nitrogen 7, Creatinine 0.70, Estimat Glomerular Filtration Rate 98, BUN/Creatinine Ratio 10, Glucose Level 88, Calcium Level 8.3L, Corrected Calcium 9.2, Phosphorus Level 3.6, Magnesium Level 2.2, Total Bilirubin 0.5, Aspartate Amino Transf (AST/SGOT) 22, Alanine Aminotransferase (ALT/SGPT) 37, Alkaline Phosphatase 68, Total Protein 4.9L, Albumin 2.9L, Amylase Level 46, Lipase 13 Microbiology 07/26/23 MRSA Screen - Final, Complete MRSA not isolated 07/25/23 Blood Culture - Preliminary, Resulted Focused Exam Lactate Level 07/25/23 23:03: Lactic Acid Level 1.09 Respiratory: Lungs Clear, Normal Breath Sounds, No Accessory Muscle Use, No Respiratory Distress Cardiovascular: Regular Rate, Rhythm Diagnosis/Problems Diagnosis/Problems (1) Epigastric abdominal pain Status: Acute (2) Vasculitis (3) Leukocytosis Status: Acute (4) COPD (chronic obstructive pulmonary disease) Status: Acute EVAN SHINE DO 07/27/23 1852: Progress Note Assessment/Plan Date Seen by Provider: Jul 27, 2023 Time Seen by Provider: 09:00 Events since last exam Patient doing a lot better but pain is still present EGD showed gastritis Appreciate Dr Bear changing to oxycodone pill form Daughter at the bedside stated that her mother is very fragile Assessment/Plan Exam: Chronically ill, obese, in no acute distress, oriented x3 Regular rhythm, clear to oxygen bilaterally No edema Mid-epigastric pain Plan: Supportive care Pain control Ambulate IHSAN TRENT MD,RESIDENT Jul 27, 2023 09:10 EVAN SHINE DO Jul 27, 2023 18:52
[2023-07-27] MEDS: HYDROmorphone INJECTION 2 MG/ML VIAL IVP PRN ×3 (09:32→13:53)
[2023-07-27] MEDS: FLUTICASONE/VILANTEROL 200/25 MCG (7 DOSES) IH SCH (09:33)
[2023-07-27] MEDS: TIOTROPIUM INH 4 GM (SPIRIVA Respimat) IH SCH (09:34)
[2023-07-27] MEDS ORDERED: MIDAZOLAM INJ 2 MG/2 ML VIAL ONE (12:09)
[2023-07-27] MEDS: ENOXAPARIN 40 MG/0.4 ML SYRINGE SC SCH (12:15)
[2023-07-27] MEDS ORDERED: LIDOCAINE JELLY 2% 6 ML SYRINGE ONE (12:24)
--- NOTE | 2023-07-27 13:04 | Anesthesia-General Post-Op ---
MAC Patient Condition Mental Status/LOC: Same as Preop Cardiovascular: Satisfactory Nausea/Vomiting: Absent Respiratory: Satisfactory Pain: Controlled Complications: Absent Post Op Complications Complications None Follow Up Care/Instructions Patient Instructions None needed. Anesthesiology Discharge Order Discharge Order Patient is doing well, no complaints, stable vital signs, no apparent adverse anesthesia problems. No complications reported per nursing. ARSH DAVIS CRNA Jul 27, 2023 13:04
--- NOTE | 2023-07-27 13:10 | OPERATIVE REPORT ---
DATE OF SERVICE: 07/27/2023 ATTENDING PRIMARY CARE PHYSICIAN: Dr. Mendiola. ADMITTING PHYSICIAN: Dr. Figueroa. PREOPERATIVE DIAGNOSIS: Chest and epigastric pain. POSTOPERATIVE DIAGNOSES: Reflux esophagitis, Screven grade C, small hiatal hernia, 2-2.5 cm in size, moderate gastritis. PROCEDURE: EGD with biopsy. SURGEON: Gumaro Whitney MD ANESTHESIA: Monitored anesthesia care. ESTIMATED BLOOD LOSS: Minimal. FINDINGS: Reflux esophagitis, Screven grade C, small hiatal hernia, 2-2.5 cm in size, moderate gastritis. DISPOSITION: The patient tolerated the procedure well. INDICATIONS: The patient is a 62-year-old female who developed chest discomfort as well as worsening shortness of breath. She does have a history of chronic obstructive pulmonary disease and has had issues with exacerbation of COPD. This time around, she reports that she had developed significant epigastric pain. A cardiac workup was negative. Upon further questioning, she does report that she has had some issues with heartburn and reflux in the past. She does not report any hematemesis, no coffee-ground emesis as well as no red blood per rectum, nor any dark tarry stools. DESCRIPTION OF PROCEDURE: The patient was brought to the endoscopy suite and laid in the left lateral decubitus position. After adequate IV pain and sedative medications and monitored anesthesia care, the mouthpiece was applied. Endoscope was placed in the mouth, visualizing the pharynx in hypopharyngeal region. Vocal cords, epiglottis and vallecula identified and appeared to be normal. The endoscope was then gently intubated into the esophageal opening and esophagus insufflated. The endoscope was then advanced through the first, second, third portions of esophagus at the level of GE junction, a reflux esophagitis, Screven grade C identified. No ulcers or strictures identified in this region. A biopsy was taken with forceps with visualization of good hemostasis. The endoscope was then advanced into the stomach and endoscope retroflexed visualizing a small to moderate size hiatal hernia approximately 2 to 2.5 cm in size. There was moderate gastritis. No formal ulcerations, polyps or any neoplasms. A biopsy was taken of the antrum to rule out H. pylori with visualization of good hemostasis. The endoscope was then advanced through the pylorus and the first and second portion of the duodenum, which appeared normal with no ulcerations or any neoplasms. The endoscope was then slowly withdrawn while taking a second look and suctioning of residual air with no additional findings. The patient tolerated the procedure well. We will recommend the necessary lifestyle and dietary accommodation including small and more frequent meals, avoidance of eating at night as well as head elevation while lying supine. We feel that the likely cause of her gastritis and epigastric pain was due to a recent steroid therapy due to her exacerbation of COPD. She is currently on Pepcid. However, we will change this to Protonix 40 mg daily. It should also be instructed to avoid caffeinated beverages, spicy, greasy and acidic foods. Job ID: [id number] DocumentID: [id number] Dictated Date: 07/27/2023 12:50:39 [employer] Employee Date: 07/27/2023 13:08:00 Dictated By: GUMARO WHITNEY MD
--- NOTE | 2023-07-27 13:36 | Progress Note-Post Operative ---
Post-Operative Progess Note Surgeon (s)/Optical Assistant (s) Surgeon GUMARO WHITNEY MD Optical Assistant: none Pre-Operative Diagnosis Upper GI bleed, epigastric pain Post-Operative Diagnosis reflux esophagitis(grade C), small-mod HH(2cm), moderate gastritis. Procedure & Operative Findings Date of Procedure 07/27/23 Procedure Performed/Findings EGD with bx. Anesthesia Type mac Estimated Blood Loss Estimated blood loss (mL): minimal Specimens/Packing Specimens Removed ge jxn, antrum GUMARO WHITNEY MD Jul 27, 2023 13:36
[2023-07-27] MEDS ORDERED: LACTATED RINGERS 1,000 ML 1,000 ML IV STA (13:39)
[2023-07-27] MEDS ORDERED: LIDOCAINE JELLY 2% 6 ML SYRINGE MM PRN (13:45)
[2023-07-27] MEDS ORDERED: HURRICAINE EXT TUBE (BENZOCAINE) XX PRN (13:45)
[2023-07-27] MEDS ORDERED: HURRICAINE EXT TUBE (BENZOCAINE) ONE (14:11)
[2023-07-27] MEDS: oxyCODONE IMMEDIATE RELEASE 5 MG TABLET PO PRN (16:13)
[2023-07-27] MEDS: RT-ALBUTEROL SULF 2.5 MG/3 ML PRE-MIX VIAL INH PRN (16:33)
[2023-07-27] MEDS ORDERED: PROMETHAZINE INJ 25 MG/ML VIAL ONE (19:42)
[2023-07-27] MEDS ORDERED: PROMETHAZINE INJ 25 MG/ML VIAL IVP PRN (19:45)
[2023-07-27] MEDS ORDERED: fentaNYL INJECTION 100 MCG/2 ML VIAL ONE (19:50)
[2023-07-27] MEDS: fentaNYL INJECTION 100 MCG/2 ML VIAL IVP PRN (19:57)
[2023-07-28] MEDS: ACETAMINOPHEN 500 MG TABLET PO PRN ×3 (00:54→18:16)
[2023-07-28] MEDS: CEFEPIME INJECTION 1,000 MG in NS (IVPB) 50 ML 50 ML IV SCH ×4 (04:00→22:26)
[2023-07-28] MEDS: LACTATED RINGERS 1,000 ML 1,000 ML IV SCH ×2 (04:00→17:05)
[2023-07-28 04:03] VITALS: BP 161/71
[2023-07-28] MEDS: SUCRALFATE 1 GM TABLET PO SCH ×4 (04:32→19:59)
[2023-07-28] MEDS: fentaNYL INJECTION 100 MCG/2 ML VIAL IVP PRN (04:32)
[2023-07-28] MEDS: buPROPion SR 150 MG TABLET PO SCH ×2 (05:57→16:31)
[2023-07-28 06:06] LABS: BASOPHILS % (AUTO) 0 % (0-10); EOSINOPHILS # (AUTO) 0.1 10^3/uL (0.0-0.3); EOSINOPHILS % (AUTO) 1 % (0-10); HEMATOCRIT 38 % (35-52); HEMOGLOBIN 12.4 g/dL (11.5-16.0); LYMPHOCYTES # (AUTO) 1.8 10^3/uL (1.0-4.0); LYMPHOCYTES % (AUTO) 14 % (12-44); MEAN CORPUSCULAR HEMOGLOBIN 29 pg (25-34); MEAN CORPUSCULAR HGB CONC 32 g/dL (32-36); MEAN CORPUSCULAR VOLUME 90 fL (80-99); MEAN PLATELET VOLUME 9.1 fL (9.0-12.2); MONOCYTES # (AUTO) 1.5 10^3/uL (0.0-1.0); MONOCYTES % (AUTO) 11 % (0-12); NEUTROPHILS # (AUTO) 9.6 10^3/uL (1.8-7.8); NEUTROPHILS % (AUTO) 73 % (42-75); PLATELET COUNT 289 10^3/uL (130-400)
[2023-07-28 06:22] LABS: ALBUMIN 3.4 GM/DL (3.2-4.5); POTASSIUM 3.6 MMOL/L (3.6-5.0)
[2023-07-28 06:24] LABS: CALCIUM 8.6 MG/DL (8.5-10.1)
[2023-07-28 06:25] LABS: TOTAL PROTEIN 5.9 GM/DL (6.4-8.2)
[2023-07-28 06:27] LABS: BILIRUBIN,TOTAL 0.7 MG/DL (0.1-1.0)
[2023-07-28 06:28] LABS: PHOSPHORUS 2.4 MG/DL (2.3-4.7)
[2023-07-28 06:29] LABS: CREATININE SERUM 0.68 MG/DL (0.60-1.30)
[2023-07-28] MEDS: POTASSIUM CHLORIDE 20 MEQ TABLET PO SCH (06:32)
[2023-07-28] MEDS: POTASSIUM CL 10MEQ/50ML IVPB 50 ML IV SCH (06:32)
[2023-07-28] MEDS: MAGNESIUM 1 GM/100 ML IVPB 100 ML IV SCH (06:33)
[2023-07-28] MEDS: FLUTICASONE/VILANTEROL 200/25 MCG (7 DOSES) IH SCH (06:57)
[2023-07-28] MEDS: TIOTROPIUM INH 4 GM (SPIRIVA Respimat) IH SCH (06:57)
[2023-07-28] MEDS: oxyCODONE IMMEDIATE RELEASE 5 MG TABLET PO PRN (07:25)
[2023-07-28 07:29] VITALS: BP 153/68
[2023-07-28] MEDS: amLODIPine 5 MG TABLET PO SCH (08:26)
[2023-07-28] MEDS: PANTOPRAZOLE 40 MG TABLET PO SCH ×2 (08:26→19:59)
[2023-07-28] MEDS ORDERED: POTASSIUM CHLORIDE 20 MEQ TABLET PO ONE (09:00)
--- NOTE | 2023-07-28 09:58 | Progress Note ---
Subjective Date Seen by a Provider: Jul 28, 2023 Time Seen by a Provider: 09:30 Subjective/Events-last exam Patient seen with Dr. Bear. Patient reports doing ok. Had nausea and vomiting last night, none since 0300 this morning. Tolerating diet this AM. Does reports some upper abdominal pain. Focused Exam Lactate Level 07/25/23 23:03: Lactic Acid Level 1.09 Objective Exam Vital Signs Date Time Temp Pulse Resp B/P (MAP) Pulse Ox O2 Delivery O2 Flow Rate FiO2 07/28/23 07:29 37.0 99 18 153/68 (96) 95 Nasal Cannula 2.00 07/28/23 06:58 Nasal Cannula 2.00 99 07/28/23 04:03 37.3 83 18 161/71 (101) 98 Nasal Cannula 2.00 07/27/23 23:14 37.0 86 20 146/70 (95) 96 Nasal Cannula 2.00 07/27/23 19:58 36.0 88 20 156/75 (102) 97 Nasal Cannula 2.00 07/27/23 19:15 Nasal Cannula 2.00 07/27/23 16:49 36.5 90 16 155/87 (109) 93 Room Air 07/27/23 16:33 Nasal Cannula 2.00 07/27/23 12:50 85 18 97 OxyMask 4.00 07/27/23 12:45 86 18 97 OxyMask 4.00 07/27/23 11:27 37.1 83 20 151/79 (103) 97 Nasal Cannula 2.50 I & O 07/28/23 07:00 Intake Total 1350 ml Output Total 1500 ml Balance -150 ml Capillary Refill : Less Than 3 Seconds General Appearance: No Apparent Distress, WD/WN, Obese Neck: Normal Inspection, Supple Respiratory: No Accessory Muscle Use, No Respiratory Distress Gastrointestinal: normal bowel sounds, soft, tenderness (upper abdomen) Extremity: Normal Inspection, Normal Range of Motion Neurologic/Psychiatric: Alert, Oriented x3 Skin: Normal Color, Warm/Dry Results Lab Laboratory Tests 07/28/23 05:31: Sodium Level 135, Potassium Level 3.6, Chloride Level 101, Carbon Dioxide Level 25, Anion Gap 9, Blood Urea Nitrogen 5L, Creatinine 0.68, Estimat Glomerular Filtration Rate 98, BUN/Creatinine Ratio 7, Glucose Level 116H, Calcium Level 8.6, Corrected Calcium 9.1, Phosphorus Level 2.4, Magnesium Level 2.0, Total Bilirubin 0.7, Aspartate Amino Transf (AST/SGOT) 32, Alanine Aminotransferase (ALT/SGPT) 64H, Alkaline Phosphatase 85, Total Protein 5.9L, Albumin 3.4 07/28/23 05:36: White Blood Count 13.0H, Red Blood Count 4.27, Hemoglobin 12.4, Hematocrit 38, Mean Corpuscular Volume 90, Mean Corpuscular Hemoglobin 29, Mean Corpuscular Hemoglobin Concent 32, Red Cell Distribution Width 13.2, Platelet Count 289, Mean Platelet Volume 9.1, Immature Granulocyte % (Auto) 1, Neutrophils (%) (Auto) 73, Lymphocytes (%) (Auto) 14, Monocytes (%) (Auto) 11, Eosinophils (%) (Auto) 1, Basophils (%) (Auto) 0, Neutrophils # (Auto) 9.6H, Lymphocytes # (Auto) 1.8, Monocytes # (Auto) 1.5H, Eosinophils # (Auto) 0.1, Basophils # (Auto) 0.0, Immature Granulocyte # (Auto) 0.1 Microbiology 07/26/23 MRSA Screen - Final, Complete MRSA not isolated 07/25/23 Blood Culture - Preliminary, Resulted 07/25/23 Urine Culture - Preliminary, Resulted Enterobacter cloacae complex Mixed Bacterial Guillermina Assessment/Plan Assessment/Plan Assess & Plan/Chief Complaint A 62 year old female withepigastric pain with hx GERD and PUD with 2 recent episodes of COPD exacerbation requiring steroid therapy. stress and glucorticoid induced GERD and PUD. VSS EGD showed RE grade C, Small HH, gastritis Hgb 12.4 Would recommend a HIDA scan for possible biliay dyskinesia either as inpatient vs outpatient LORI JEFF RADON INSPECTOR Jul 28, 2023 09:58
[2023-07-28] MEDS ORDERED: METOCLOPRAMIDE INJ 10 MG/2 ML IVP PRN (11:15)
[2023-07-28 11:25] VITALS: BP 158/74
--- NOTE | 2023-07-28 11:40 | Progress Note ---
Subjective Date Seen by a Provider: Jul 28, 2023 Time Seen by a Provider: 11:45 Subjective/Events-last exam Improved overall Pain is an issue and PO meds initiated Multiple family members in the room currently Daughter had list of 15 questions on post it notes she asked me and I had conferred with Dr Bear and she had asked him the same exact questions and unsure if she just needed verification or did not understand answers. She told me all about the research she had done on the internet and asked if we intended to place patient on any medications she had read was helpful. Supportive care and conservative management is indicated and HIDA scan is scheduled for tomorrow Review of Systems General: Fatigue Gastrointestinal: Abdominal Pain Focused Exam Lactate Level 07/25/23 23:03: Lactic Acid Level 1.09 Objective Exam Last Set of Vital Signs Vital Signs Date Time Temp Pulse Resp B/P (MAP) Pulse Ox O2 Delivery O2 Flow Rate FiO2 07/28/23 11:25 37.1 93 20 158/74 (102) 96 Nasal Cannula 2.00 07/28/23 06:58 99 Capillary Refill : Less Than 3 Seconds I&O Intake and Output 07/28/23 00:00 Intake Total 1350 ml Output Total 1600 ml Balance -250 ml Intake Oral 200 ml IV Total 1150 ml Output Urine Total 1600 ml # Voids 1 # Bowel Movements 1 General: Alert, Oriented X3, Cooperative, No Acute Distress Lungs: Clear to Auscultation, Normal Air Movement Heart: Regular Rate, Normal S1, Normal S2, No Murmurs Psych/Mental Status: Mental Status NL, Mood NL Results Lab Laboratory Tests 07/28/23 05:31: Sodium Level 135, Potassium Level 3.6, Chloride Level 101, Carbon Dioxide Level 25, Anion Gap 9, Blood Urea Nitrogen 5L, Creatinine 0.68, Estimat Glomerular Filtration Rate 98, BUN/Creatinine Ratio 7, Glucose Level 116H, Calcium Level 8.6, Corrected Calcium 9.1, Phosphorus Level 2.4, Magnesium Level 2.0, Total Bilirubin 0.7, Aspartate Amino Transf (AST/SGOT) 32, Alanine Aminotransferase (ALT/SGPT) 64H, Alkaline Phosphatase 85, Total Protein 5.9L, Albumin 3.4 07/28/23 05:36: White Blood Count 13.0H, Red Blood Count 4.27, Hemoglobin 12.4, Hematocrit 38, Mean Corpuscular Volume 90, Mean Corpuscular Hemoglobin 29, Mean Corpuscular Hemoglobin Concent 32, Red Cell Distribution Width 13.2, Platelet Count 289, Mean Platelet Volume 9.1, Immature Granulocyte % (Auto) 1, Neutrophils (%) (Auto) 73, Lymphocytes (%) (Auto) 14, Monocytes (%) (Auto) 11, Eosinophils (%) (Auto) 1, Basophils (%) (Auto) 0, Neutrophils # (Auto) 9.6H, Lymphocytes # (Auto) 1.8, Monocytes # (Auto) 1.5H, Eosinophils # (Auto) 0.1, Basophils # (Auto) 0.0, Immature Granulocyte # (Auto) 0.1 Microbiology 07/26/23 MRSA Screen - Final, Complete MRSA not isolated 07/25/23 Blood Culture - Preliminary, Resulted 07/25/23 Urine Culture - Final, Complete Enterobacter cloacae complex Mixed Bacterial Guillermina Assessment/Plan Assessment/Plan Assess & Plan/Chief Complaint Assessment: Acute and severe abdominal pain Vascultitis on CT scan after recent prednisone for COPD management Gastritis on EGD COPD Obesity Plan: Supportive care Pain control Ambulate HIDA tomorrow Clinical Quality Measures Admission Status Admission Dx Abdominal pain Abdominal vasculitis Plan: Moved to fourth floor Supportive care EVAN SHINE DO Jul 28, 2023 11:40
[2023-07-28] MEDS: ENOXAPARIN 40 MG/0.4 ML SYRINGE SC SCH (12:23)
[2023-07-28 15:39] VITALS: BP 122/56
[2023-07-28 19:28] VITALS: BP 137/63
[2023-07-28 23:14] VITALS: BP 136/66
[2023-07-29] MEDS: ACETAMINOPHEN 500 MG TABLET PO PRN (03:00)
[2023-07-29 03:02] VITALS: BP 135/65
[2023-07-29] MEDS: CEFEPIME INJECTION 1,000 MG in NS (IVPB) 50 ML 50 ML IV SCH ×4 (05:43→23:52)
[2023-07-29] MEDS: KETOROLAC INJ 30 MG/ML VIAL IV PRN ×2 (05:43→18:36)
[2023-07-29] MEDS: buPROPion SR 150 MG TABLET PO SCH ×2 (05:46→17:22)
[2023-07-29] MEDS: SUCRALFATE 1 GM TABLET PO SCH ×4 (05:46→20:04)
[2023-07-29 06:02] LABS: BASOPHILS % (AUTO) 0 % (0-10); EOSINOPHILS # (AUTO) 0.3 10^3/uL (0.0-0.3); EOSINOPHILS % (AUTO) 3 % (0-10); HEMATOCRIT 37 % (35-52); HEMOGLOBIN 11.8 g/dL (11.5-16.0); LYMPHOCYTES # (AUTO) 2.5 10^3/uL (1.0-4.0); LYMPHOCYTES % (AUTO) 23 % (12-44); MEAN CORPUSCULAR HEMOGLOBIN 29 pg (25-34); MEAN CORPUSCULAR HGB CONC 32 g/dL (32-36); MEAN CORPUSCULAR VOLUME 91 fL (80-99); MEAN PLATELET VOLUME 9.2 fL (9.0-12.2); MONOCYTES # (AUTO) 1.3 10^3/uL (0.0-1.0); MONOCYTES % (AUTO) 12 % (0-12); NEUTROPHILS # (AUTO) 6.7 10^3/uL (1.8-7.8); NEUTROPHILS % (AUTO) 61 % (42-75); PLATELET COUNT 272 10^3/uL (130-400); WHITE BLOOD COUNT 10.9 10^3/uL (4.3-11.0)
[2023-07-29 06:18] LABS: ALBUMIN 3.3 GM/DL (3.2-4.5)
[2023-07-29 06:20] LABS: CALCIUM 8.5 MG/DL (8.5-10.1)
[2023-07-29 06:21] LABS: TOTAL PROTEIN 5.8 GM/DL (6.4-8.2)
[2023-07-29] MEDS: POTASSIUM CL 10MEQ/50ML IVPB 50 ML IV SCH (06:21)
[2023-07-29] MEDS: POTASSIUM CHLORIDE 20 MEQ TABLET PO SCH (06:21)
[2023-07-29 06:23] LABS: BILIRUBIN,TOTAL 0.8 MG/DL (0.1-1.0)
[2023-07-29 06:25] LABS: CREATININE SERUM 0.7 MG/DL (0.60-1.30)
[2023-07-29] MEDS: MAGNESIUM 1 GM/100 ML IVPB 100 ML IV SCH (06:33)
[2023-07-29 07:25] VITALS: BP 126/59
[2023-07-29] MEDS: LACTATED RINGERS 1,000 ML 1,000 ML IV SCH ×2 (07:28→20:05)
[2023-07-29] MEDS: FLUTICASONE/VILANTEROL 200/25 MCG (7 DOSES) IH SCH (08:37)
[2023-07-29] MEDS: TIOTROPIUM INH 4 GM (SPIRIVA Respimat) IH SCH (08:37)
[2023-07-29] MEDS ORDERED: ACET325T38 PO (09:06)
[2023-07-29] MEDS ORDERED: FEXO-14 PO (09:06)
[2023-07-29] MEDS ORDERED: BUDE10.7 IH (09:06)
[2023-07-29] MEDS ORDERED: HYDR-3584 PO (09:06)
--- NOTE | 2023-07-29 11:50 | Progress Note ---
HENRIK HIGGINS 07/29/23 1150: Progress Note This is a 62 year old female who presents with a history of GERD, COPD on 2L oxygen, who recently had URI symptoms treated. Patient presented to the ER with epigastric pain that was preceded by 4 days of diarrhea. Patient also complained of some RUQ pain. Patient had a CT performed which showed emphysema changes and fat stranding surrounding the mesenteric vessels suggestive of vaculitis. Surgery was consulted. Dr Bear took the patient for an EGD- results showed reflux esophagitis. Patient was given 40 mg Protonix. Her hospital stay had no complications and was unremarkable. Patients pain has improved throughout her stay. When she is taking her pain medication she has close to no medications, however, when the medication wears off she has increasing pain. HIDA scan being performed for possible biliary stasis. KALEIGH SHINE DO 07/29/232020: Supervisory-Addendum Brief Verification & Attestation Participated in pt care: history, MDM, physical Personally performed: exam, history, MDM, supervision of care Care discussed with: Medical Student Procedures: n/a Results interpretation: Verified all documentation Verification and Attestation of Medical Student E/M Service A medical student performed and documented this service in my presence. I reviewed and verified all information documented by the medical student and made modifications to such information, when appropriate. I personally performed the physical exam and medical decision making. Kaleigh Shine, Jul 29, 2023,20:21 HENRIK HIGGINS Jul 29, 2023 11:50 KALEIGH SHINE DO Jul 29, 2023 20:21
[2023-07-29 12:36] VITALS: BP 123/58
[2023-07-29] MEDS: PANTOPRAZOLE 40 MG TABLET PO SCH ×2 (12:54→20:04)
[2023-07-29] MEDS: amLODIPine 5 MG TABLET PO SCH (12:54)
[2023-07-29] MEDS: ENOXAPARIN 40 MG/0.4 ML SYRINGE SC SCH (12:54)
--- NOTE | 2023-07-29 13:30 | Diagnostic Imaging Report ---
INDICATION: 62-year-old female, abdominal pain, nausea. FINDINGS: The patient was administered 5.31 mCi of Tc 99m Choletec and sequential imaging was performed over the right upper abdomen. There is progressive, homogeneous accumulation of radiotracer within the liver parenchyma. There is filling of the bile ducts and subsequent filling of the gallbladder. There is progressive clearance of activity from the liver parenchyma and accumulation of radiotracer within loops of small bowel. The patient was then administered a fatty meal, utilizing 8 ounces of Ensure. The gallbladder ejection fraction was calculated to be approximately 11%. (Normal values post fatty meal stimulation are 33% or greater.) IMPRESSION: 1. Hepatobiliary scan demonstrates a patent biliary tree. 2. Abnormal gallbladder ejection fraction of approximately 11%. Dictated by: Dictated on workstation # [id number]
[2023-07-29 15:35] VITALS: BP 153/77
--- NOTE | 2023-07-29 17:51 | Consultation-Cardiology ---
HPI-Cardiology Cardiology Consultation: Date of Consultation 07/29/23 Time Seen by a Provider: 17:40 Date of Admission Attending Physician Anjel Hummel DO Admitting Physician Admitting Physician: Kaleigh Figueroa DO Attending Physician: Kaleigh Figueroa DO Consulting Physician GERARD GUTIERREZ MD, MA, FACP, FACC, FSCAI, CCDS Physician requesting consult: Dr Bear HPI: Chief Complaint: Reason for Card consult: Pre-op card eval 62 yo woman admitted with R lower chest and RUQ pain w/o radiation and associated with n/v. This has been diagnosed as cholecystitis and she is awaiting lap bhavik. No cp. Chronic shortness of breath due to COPD, unchanged. No syncope. Occ palp (mostly when breathing gets worse due to worsening of COPD). No h/o leg swelling Review of Systems-Cardiology Review of Systems Constitutional: No malaise, No tiredness, No weight loss; weight gain (since on steroids for COPD) Eyes: No vision change Ears/Nose/Throat: No ear discharge, No recent hearing loss, No ulcerations Respiratory: As described under HPI Cardiovascular: As described under HPI Gastrointestinal: As described under HPI Genitourinary: No dysuria, No hematuria Musculoskeletal: No back pain, No joint pain Skin: No rash Psychiatric/Neurological: No seizure, No focal weakness, No syncope Hematologic: No bleeding abnormalities WDV-Kmlalm-Oonlup Hx Patient Social History Marrital Status: Employed/Student: retired Smoking Status: Former Smoker 2nd Hand Smoke Exposure: Yes Alcohol Use?: Yes (1 drink per year) Pt feels they are or have been: No Tobacco type used: Cigarettes Immunizations Up To Date Tetanus Booster (TDap): Unknown Date of Influenza Vaccine: Jul 28, 2018 Past Medical History PMH As described under Assessment. Family Medical History Family Medical History: Father had AK in his late 50s Allergies and Home Medications Allergies Coded Allergies: amoxicillin (Verified Allergy, Mild, RASH, 05/11/19) Patient Home Medication List Home Medication List Reviewed: Yes Acetaminophen (Tylenol) 325 Mg Tablet, 650 MG PO Q6H PRN for PAIN-MILD (1-4), (Reported) Entered as Reported by: DHIRAJ GILL on 07/29/23 0906 Last Action: Reviewed Albuterol Sulfate (Ventolin Hfa) 18 Gm Hfa.aer.ad, 2 PUFF INH Q6H PRN for SHORTNESS OF BREATH, (Reported) Entered as Reported by: RAJ SAMAINEGO on 08/21/21 1006 Last Action: Reviewed Amlodipine Besylate (Amlodipine Besylate) 5 Mg Tablet, 5 MG PO DAILY, (Reported) Entered as Reported by: JUDY ANDREWS on 05/11/191403 Last Action: Reviewed Budesonide/Glycopyr/Formoterol (Breztri Aerosphere Inhaler) 160 Mcg-9 Mcg-4.8 Mcg/Actuation Hfa.aer.ad, 2 PUFF IH BID, (Reported) Entered as Reported by: DHIRAJ GILL on 07/29/23905 Last Action: Reviewed Bupropion HCl (Wellbutrin Sr) 150 Mg Tablet.er, 150 MG PO 0700,1600, (Reported) Entered as Reported by: JUDY ANDREWS on 05/11/191403 Last Action: Reviewed Fexofenadine HCl (Kari Allergy) 60 Mg Tablet, 60 MG PO DAILY PRN for ALLER GIES, (Reported) Entered as Reported by: DHIRAJ GILL on 07/29/23905 Last Action: Reviewed Hydroxyzine HCl (Hydroxyzine HCl) 10 Mg Tablet, 10 MG PO DAILY PRN for ANXIETY, (Reported) Entered as Reported by: DHIRAJ GILL on 07/29/23905 Last Action: Reviewed Discontinued Medications Azithromycin (Azithromycin) 250 Mg Tablet, 250 MG PO UD Discontinued Reason: No Longer Taking Prescribed by: ADELINA COLMENARES on 02/17/23 1327 Last Action: Discontinued Budesonide/Formoterol Fumarate (Symbicort 160-4.5 Mcg Inhaler) 10.2 Gm Hfa.aer.ad, 2 PUFF IH BID, (Reported) Discontinued Reason: No Longer Taking Entered as Reported by: JUDY ANDREWS on 05/11/191403 Last Action: Discontinued Budesonide/Glycopyr/Formoterol (Breztri Aerosphere Inhaler) 160 Mcg-9 Mcg-4.8 Mcg/Actuation Hfa.aer.ad, 10.7 GM IH BID Discontinued Reason: Duplicate Order Prescribed by: KIN HUYNH on 07/26/23 4361 Last Action: Discontinued Hyoscyamine Sulfate (Levsin-Sl) 0.125 Mg Tab.subl, 0.125 MG SL QID Discontinued Reason: No Longer Taking Prescribed by: ANJEL HUMMEL on 08/21/21 110 Last Action: Discontinued Pantoprazole Sodium (Pantoprazole Sodium) 40 Mg Tablet.dr, 40 MG PO DAILY Discontinued Reason: No Longer Taking Prescribed by: ANJEL HUMMEL on 08/21/21 110 Last Action: Discontinued Prednisone (Prednisone) 20 Mg Tab, 40 MG PO DAILY Discontinued Reason: No Longer Taking Prescribed by: ADELINA COLMENARES on 02/17/23 1327 Last Action: Discontinued Sucralfate (Carafate) 1 Gram Tablet, 1 GM PO QID Discontinued Reason: No Longer Taking Prescribed by: ADELINA COLMENARES on 02/16/23 0922 Last Action: Discontinued Physical Exam-Cardiology Physical Exam Vital Signs/I&O 07/29/23 07/29/23 07/29/23 07/29/23 07:25 08:00 08:37 09:04 Temp 37.0 Pulse 81 Resp 16 B/P (MAP) 126/59 (81) Pulse Ox 97 97 O2 Delivery Nasal Cannula Nasal Cannula Nasal Cannula Nasal Cannula O2 Flow Rate 2.00 2.00 2.50 2.00 07/29/23 07/29/23 12:36 15:35 Temp 36.8 36.7 Pulse 89 67 Resp 17 18 B/P (MAP) 123/58 (79) 153/77 (102) Pulse Ox 96 94 O2 Delivery Nasal Cannula Room Air O2 Flow Rate 2.00 07/29/23 00:00 Intake Total 1632 ml Output Total 800 ml Balance 832 ml Capillary Refill : Less Than 3 Seconds Constitutional: AAO x 3, well-developed, well-nourished HEENT: EOMI, hearing is well preserved; No xanthelasmas are seen Neck: carotid pulses are 2 + bilaterally, with good upstrokes Respiratory: No accessory muscle use; chest expansion is symmetric, chest is bilaterally symmetric, other (generally diminished air entry and prolonged exp) Cardiovascular: regular rate-rhythm, S1 and S2, systolic murmur (soft MELANI at card base) Gastrointestinal: tender (RUQ); No guarding, No rebound; audible bowel sounds Extremities: No clubbing, No cyanosis, No significant edema Neurologic/Psychiatric: oriented x 3, other (moves all limbs equally) Skin: normal color, warm/dry; No cyanosis, No cool, No diaphoresis, No rash on exposed areas, No ulcerations on exposed areas Data Review Labs Laboratory Tests 07/29/23 05:40: White Blood Count 10.9, Red Blood Count 4.03, Hemoglobin 11.8, Hematocrit 37, Mean Corpuscular Volume 91, Mean Corpuscular Hemoglobin 29, Mean Corpuscular Hemoglobin Concent 32, Red Cell Distribution Width 13.2, Platelet Count 272, Mean Platelet Volume 9.2, Immature Granulocyte % (Auto) 1, Neutrophils (%) (Auto) 61, Lymphocytes (%) (Auto) 23, Monocytes (%) (Auto) 12, Eosinophils (%) (Auto) 3, Basophils (%) (Auto) 0, Neutrophils # (Auto) 6.7, Lymphocytes # (Auto) 2.5, Monocytes # (Auto) 1.3H, Eosinophils # (Auto) 0.3, Basophils # (Auto) 0.0, Immature Granulocyte # (Auto) 0.1, Sodium Level 137, Potassium Level 4.0, Chloride Level 103, Carbon Dioxide Level 25, Anion Gap 9, Blood Urea Nitrogen 8, Creatinine 0.70, Estimat Glomerular Filtration Rate 98, BUN/Creatinine Ratio 11, Glucose Level 102, Calcium Level 8.5, Corrected Calcium 9.1, Phosphorus Level 2.0L, Magnesium Level 2.0, Total Bilirubin 0.8, Aspartate Amino Transf (AST/SGOT) 32, Alanine Aminotransferase (ALT/SGPT) 53, Alkaline Phosphatase 79, Total Protein 5.8L, Albumin 3.3 Microbiology 07/26/23 MRSA Screen - Final, Complete MRSA not isolated 07/25/23 Blood Culture - Preliminary, Resulted 07/25/23 Urine Culture - Final, Complete Enterobacter cloacae complex Mixed Bacterial Guillermina Laboratory Tests 07/28/23 05:31 07/28/23 05:36 07/29/23 05:40 A/P-Cardiology Assessment/Admission Diagnosis Ac cholecystitis - lap bhavik planned by Dr Bear Advanced COPD - requires supplemental oxygen No symptoms of angina of CHF Discussion and Recomendations Cardiac risk is estimated to be intermediate. Discussed with the patient. She understands For eval of pulmonary risk, we recommend Hospitalist consult GERARD Hinton MD FACP FACC CCDS Jul 29, 2023 17:51
--- NOTE | 2023-07-29 18:15 | Progress Note ---
Subjective Date Seen by a Provider: Jul 29, 2023 Time Seen by a Provider: 18:00 Subjective/Events-last exam doing ok. still has some epigastric and ruq abd pain with nausea. HIDA scan done with EF 9% Objective Exam Vital Signs Date Time Temp Pulse Resp B/P (MAP) Pulse Ox O2 Delivery O2 Flow Rate FiO2 07/29/23 15:35 36.7 67 18 153/77 (102) 94 Room Air 07/29/23 12:36 36.8 89 17 123/58 (79) 96 Nasal Cannula 2.00 07/29/23 09:04 Nasal Cannula 2.00 07/29/23 08:37 97 Nasal Cannula 2.50 07/29/23 08:00 Nasal Cannula 2.00 07/29/23 07:25 37.0 81 16 126/59 (81) 97 Nasal Cannula 2.00 07/29/23 03:02 36.4 86 18 135/65 (88) 94 Nasal Cannula 2.00 07/28/23 23:14 37.0 88 20 136/66 (89) 96 Nasal Cannula 2.00 07/28/23 20:00 Nasal Cannula 2.00 07/28/23 19:28 38.0 92 16 137/63 (87) 97 Nasal Cannula 2.00 07/28/23 19:10 38.0 I & O 07/29/23 07:00 Intake Total 1682 ml Output Total 1400 ml Balance 282 ml Capillary Refill : Less Than 3 Seconds General Appearance: No Apparent Distress HEENT: PERRL/EOMI Neck: Full Range of Motion Respiratory: Decreased Breath Sounds, Rhonci, Wheezing Cardiovascular: Regular Rate, Rhythm Gastrointestinal: normal bowel sounds, soft, tenderness Extremity: Normal Capillary Refill Neurologic/Psychiatric: Alert, Oriented x3 Skin: Normal Color Lymphatic: No Adenopathy Results Lab Laboratory Tests 07/29/23 05:40: White Blood Count 10.9, Red Blood Count 4.03, Hemoglobin 11.8, Hematocrit 37, Mean Corpuscular Volume 91, Mean Corpuscular Hemoglobin 29, Mean Corpuscular Hemoglobin Concent 32, Red Cell Distribution Width 13.2, Platelet Count 272, Mean Platelet Volume 9.2, Immature Granulocyte % (Auto) 1, Neutrophils (%) (Auto) 61, Lymphocytes (%) (Auto) 23, Monocytes (%) (Auto) 12, Eosinophils (%) (Auto) 3, Basophils (%) (Auto) 0, Neutrophils # (Auto) 6.7, Lymphocytes # (Auto) 2.5, Monocytes # (Auto) 1.3H, Eosinophils # (Auto) 0.3, Basophils # (Auto) 0.0, Immature Granulocyte # (Auto) 0.1, Sodium Level 137, Potassium Level 4.0, Chloride Level 103, Carbon Dioxide Level 25, Anion Gap 9, Blood Urea Nitrogen 8, Creatinine 0.70, Estimat Glomerular Filtration Rate 98, BUN/Creatinine Ratio 11, Glucose Level 102, Calcium Level 8.5, Corrected Calcium 9.1, Phosphorus Level 2.0L, Magnesium Level 2.0, Total Bilirubin 0.8, Aspartate Amino Transf (AST/SGOT) 32, Alanine Aminotransferase (ALT/SGPT) 53, Alkaline Phosphatase 79, Total Protein 5.8L, Albumin 3.3 Microbiology 07/26/23 MRSA Screen - Final, Complete MRSA not isolated 07/25/23 Blood Culture - Preliminary, Resulted 07/25/23 Urine Culture - Final, Complete Enterobacter cloacae complex Mixed Bacterial Guillermina Assessment/Plan Assessment/Plan Assess & Plan/Chief Complaint epigastric pain with hx GERD and PUD with 2 recent episodes of COPD exacerbation requiring steroid therapy. stress and glucorticoid induced GERD and PUD. EGD showed reflux and gastritis as well as small HH. Persistent pain with nausea and vomiting HIDA scan done today which showed EF 9% and reproduction of sx with administration of kinevac analogue consistent with sx biliary dyskinesia. will plan for lap bhavik one tues around 11:30. will get cardiac clearance before surgery. GUMARO WHITNEY MD Jul 29, 2023 18:15
--- NOTE | 2023-07-29 18:18 | Progress Note-Pre Operative ---
Pre-Operative Progress Note Date of Available H&P: Jul 29, 2023 Date H&P Reviewed: Jul 29, 2023 Time H&P Reviewed: 18:00 History & Physical: No changes noted Pre-Operative Diagnosis: sx biliary dyskinesia GUMARO WHITNEY MD Jul 29, 2023 18:18
[2023-07-29 19:43] VITALS: BP 109/52
--- NOTE | 2023-07-29 20:23 | Progress Note ---
Subjective Date Seen by a Provider: Jul 29, 2023 Time Seen by a Provider: 09:30 Subjective/Events-last exam Patient doing better Less pain HIDA scan will be done today Improved overall Review of Systems Gastrointestinal: Abdominal Pain Objective Exam Last Set of Vital Signs Vital Signs Date Time Temp Pulse Resp B/P (MAP) Pulse Ox O2 Delivery O2 Flow Rate FiO2 07/29/23 20:03 Nasal Cannula 2.00 07/29/23 19:43 36.4 90 18 109/52 (71) 95 07/28/23 06:58 99 Capillary Refill : Less Than 3 Seconds I&O Intake and Output 07/29/23 00:00 Intake Total 2782 ml Output Total 1300 ml Balance 1482 ml Intake Oral 632 ml IV Total 2150 ml Output Urine Total 1300 ml # Voids 2 # Bowel Movements 1 General: Alert, Oriented X3, Cooperative, No Acute Distress Lungs: Clear to Auscultation, Normal Air Movement Heart: Regular Rate, Normal S1, Normal S2, No Murmurs Psych/Mental Status: Mental Status NL, Mood NL Results Lab Laboratory Tests 07/29/23 05:40: White Blood Count 10.9, Red Blood Count 4.03, Hemoglobin 11.8, Hematocrit 37, Mean Corpuscular Volume 91, Mean Corpuscular Hemoglobin 29, Mean Corpuscular Hemoglobin Concent 32, Red Cell Distribution Width 13.2, Platelet Count 272, Mean Platelet Volume 9.2, Immature Granulocyte % (Auto) 1, Neutrophils (%) (Auto) 61, Lymphocytes (%) (Auto) 23, Monocytes (%) (Auto) 12, Eosinophils (%) (Auto) 3, Basophils (%) (Auto) 0, Neutrophils # (Auto) 6.7, Lymphocytes # (Auto) 2.5, Monocytes # (Auto) 1.3H, Eosinophils # (Auto) 0.3, Basophils # (Auto) 0.0, Immature Granulocyte # (Auto) 0.1, Sodium Level 137, Potassium Level 4.0, Chloride Level 103, Carbon Dioxide Level 25, Anion Gap 9, Blood Urea Nitrogen 8, Creatinine 0.70, Estimat Glomerular Filtration Rate 98, BUN/Creatinine Ratio 11, Glucose Level 102, Calcium Level 8.5, Corrected Calcium 9.1, Phosphorus Level 2.0L, Magnesium Level 2.0, Total Bilirubin 0.8, Aspartate Amino Transf ( T/SGOT) 32, Alanine Aminotransferase (ALT/SGPT) 53, Alkaline Phosphatase 79, Total Protein 5.8L, Albumin 3.3 Microbiology 07/26/23 MRSA Screen - Final, Complete MRSA not isolated 07/25/23 Blood Culture - Preliminary, Resulted 07/25/23 Urine Culture - Final, Complete Enterobacter cloacae complex Mixed Bacterial Guillermina Assessment/Plan Assessment/Plan Assess & Plan/Chief Complaint Assessment: Acute and severe abdominal pain Vascultitis on CT scan after recent prednisone for COPD management Gastritis on EGD COPD Obesity Plan: Supportive care Pain control Ambulate HIDA today Clinical Quality Measures Admission Status Admission Dx Abdominal pain Abdominal vasculitis Plan: Moved to fourth floor Supportive care EVAN SHINE DO Jul 29, 2023 20:23
[2023-07-29 23:33] VITALS: BP 118/55
[2023-07-30] VITALS (13 sets, daily range): BP systolic 113–146; BP diastolic 59–76
[2023-07-30] MEDS: KETOROLAC INJ 30 MG/ML VIAL IV PRN ×3 (01:37→23:55)
[2023-07-30] MEDS: CEFEPIME INJECTION 1,000 MG in NS (IVPB) 50 ML 50 ML IV SCH ×4 (05:02→23:04)
[2023-07-30 05:51] LABS: BASOPHILS % (AUTO) 1 % (0-10); EOSINOPHILS # (AUTO) 0.3 10^3/uL (0.0-0.3); EOSINOPHILS % (AUTO) 4 % (0-10); HEMATOCRIT 31 % (35-52); HEMOGLOBIN 10.2 g/dL (11.5-16.0); LYMPHOCYTES # (AUTO) 2.7 10^3/uL (1.0-4.0); LYMPHOCYTES % (AUTO) 34 % (12-44); MEAN CORPUSCULAR HEMOGLOBIN 29 pg (25-34); MEAN CORPUSCULAR HGB CONC 33 g/dL (32-36); MEAN CORPUSCULAR VOLUME 91 fL (80-99); MEAN PLATELET VOLUME 9.5 fL (9.0-12.2); MONOCYTES % (AUTO) 13 % (0-12); NEUTROPHILS # (AUTO) 3.9 10^3/uL (1.8-7.8); NEUTROPHILS % (AUTO) 49 % (42-75); PLATELET COUNT 254 10^3/uL (130-400); WHITE BLOOD COUNT 8.1 10^3/uL (4.3-11.0)
[2023-07-30] MEDS: buPROPion SR 150 MG TABLET PO SCH ×2 (06:04→17:23)
[2023-07-30] MEDS: SUCRALFATE 1 GM TABLET PO SCH ×4 (06:04→20:38)
[2023-07-30 06:06] LABS: ALBUMIN 2.8 GM/DL (3.2-4.5); BILIRUBIN,TOTAL 0.4 MG/DL (0.1-1.0); CALCIUM 7.9 MG/DL (8.5-10.1); CREATININE SERUM 0.63 MG/DL (0.60-1.30); MAGNESIUM 1.9 MG/DL (1.6-2.4); PHOSPHORUS 2.2 MG/DL (2.3-4.7); POTASSIUM 3.5 MMOL/L (3.6-5.0); TOTAL PROTEIN 4.9 GM/DL (6.4-8.2)
[2023-07-30] MEDS: POTASSIUM CL 10MEQ/50ML IVPB 50 ML IV SCH (06:23)
[2023-07-30] MEDS: POTASSIUM CHLORIDE 20 MEQ TABLET PO SCH (06:24)
[2023-07-30] MEDS: MAGNESIUM 1 GM/100 ML IVPB 100 ML IV SCH ×3 (06:24→09:30)
[2023-07-30] MEDS: FLUTICASONE/VILANTEROL 200/25 MCG (7 DOSES) IH SCH (07:35)
[2023-07-30] MEDS: TIOTROPIUM INH 4 GM (SPIRIVA Respimat) IH SCH (07:36)
[2023-07-30] MEDS: amLODIPine 5 MG TABLET PO SCH (08:27)
[2023-07-30] MEDS: PANTOPRAZOLE 40 MG TABLET PO SCH ×2 (08:27→20:38)
[2023-07-30] MEDS ORDERED: POTASSIUM CHLORIDE 20 MEQ TABLET PO ONE (09:00)
[2023-07-30] MEDS ORDERED: LIDOCAINE/EPI 1%-1:200,000 (XYLOCAINE) 30 ML VIAL ONE (10:29)
[2023-07-30] MEDS ORDERED: LACTATED RINGERS 1,000 ML 1,000 ML IV PRN (10:30)
[2023-07-30] MEDS ORDERED: LIDOCAINE/EPI 1%-1:200,000 (XYLOCAINE) 30 ML VIAL INJ ONE (10:43)
[2023-07-30] MEDS ORDERED: ONDANSETRON INJECTION 4 MG/2 ML (SDV) ONE (12:05)
[2023-07-30] MEDS ORDERED: NEOSTIGMINE 1 MG/1ML 10 ML VIAL ONE (12:05)
[2023-07-30] MEDS ORDERED: fentaNYL INJECTION 100 MCG/2 ML VIAL ONE (12:05)
[2023-07-30] MEDS ORDERED: LIDOCAINE PF 2% 5 ML VIAL ONE (12:05)
[2023-07-30] MEDS ORDERED: ROCURONIUM 50 MG/5 ML VIAL IV ONE (12:05)
[2023-07-30] MEDS ORDERED: dexAMETHasone INJ 10 MG/ML 1 ML VIAL ONE (12:05)
[2023-07-30] MEDS ORDERED: proPOfol INJECTION 200 MG/20 ML VIAL IV ONE (12:05)
[2023-07-30] MEDS ORDERED: GLYCOPYRROLATE INJ 0.2 MG/ML 2 ML VIAL ONE (12:05)
[2023-07-30] MEDS: ENOXAPARIN 40 MG/0.4 ML SYRINGE SC SCH (12:15)
[2023-07-30] MEDS: LACTATED RINGERS 1,000 ML 1,000 ML IV SCH ×2 (12:33→20:38)
[2023-07-30] MEDS ORDERED: CLINDAMYCIN 600 MG/50 ML IVPB 50 ML IV ONE (12:37)
--- NOTE | 2023-07-30 12:41 | Progress Note ---
HENRIK HIGGINS 07/30/23 1241: Subjective Date Seen by a Provider: Jul 30, 2023 Subjective/Events-last exam 62 year old female with a history of COPD who presented with chest pain. Patient reports today her pain is very well controlled and she is feeling much better. Denies nausea, vomitting, diarhea. Patient will be getting gallbladder removed this morning. Excited to feel 100% again. Family is bed side. Reports nausea always post-op so will share that with anesthesia. Patient and family in good spirits. Patient reports ambulating without much discomfort. Has been moving around to the bathroom and walking the hallways. Focused Exam Sepsis Stage: Ruled Out Objective Exam Last Set of Vital Signs Vital Signs Date Time Temp Pulse Resp B/P (MAP) Pulse Ox O2 Delivery O2 Flow Rate FiO2 07/30/23 11:08 36.5 85 17 122/62 (82) 97 Nasal Cannula 2.00 07/28/23 06:58 99 Capillary Refill : Less Than 3 Seconds I&O Intake and Output 07/30/23 00:00 Intake Total 2830 ml Output Total 1000 ml Balance 1830 ml Intake Oral 780 ml IV Total 2050 ml Output Urine Total 1000 ml # Voids 2 General: Alert, Oriented X3 HEENT: Atraumatic, PERRLA Neck: No JVD Lungs: Clear to Auscultation Heart: Regular Rate, No Murmurs Abdomen: Normal Bowel Sounds, Soft Extremities: No Clubbing, No Cyanosis Skin: No Rashes, No Breakdown Neuro: Normal Gait, Normal Speech Results Lab Laboratory Tests 07/30/23 05:10: White Blood Count 8.1, Red Blood Count 3.47L, Hemoglobin 10.2L, Hematocrit 31L, Mean Corpuscular Volume 91, Mean Corpuscular Hemoglobin 29, Mean Corpuscular Hemoglobin Concent 33, Red Cell Distribution Width 13.3, Platelet Count 254, Mean Platelet Volume 9.5, Immature Granulocyte % (Auto) 0, Neutrophils (%) (Auto) 49, Lymphocytes (%) (Auto) 34, Monocytes (%) (Auto) 13H, Eosinophils (%) (Auto) 4, Basophils (%) (Auto) 1, Neutrophils # (Auto) 3.9, Lymphocytes # (Auto) 2.7, Monocytes # (Auto) 1.0, Eosinophils # (Auto) 0.3, Basophils # (Auto) 0.0, Immature Granulocyte # (Auto) 0.0, Sodium Level 139, Potassium Level 3.5L, Chloride Level 107, Carbon Dioxide Level 23, Anion Gap 9, Blood Urea Nitrogen 13, Creatinine 0.63, Estimat Glomerular Filtration Rate 100, BUN/Creatinine Ratio 21, Glucose Level 89, Calcium Level 7.9L, Corrected Calcium 8.9, Phosphorus Level 2.2L, Magnesium Level 1.9, Total Bilirubin 0.4, Aspartate Amino Transf (AST/SGOT) 19, Alanine Aminotransferase (ALT/SGPT) 42, Alkaline Phosphatase 68, Total Protein 4.9L, Albumin 2.8L Microbiology 07/26/23 MRSA Screen - Final, Complete MRSA not isolated 07/25/23 Blood Culture - Preliminary, Resulted 07/25/23 Urine Culture - Final, Complete Enterobacter cloacae complex Mixed Bacterial Guillermina Assessment/Plan Assessment/Plan Assess & Plan/Chief Complaint Assessment Epigastric Pain Biliary Dyskinesia Vasculitis COPD Plan: Cholecystecomy planned today Pain control IV Fluids Encourage ambulation Clinical Quality Measures Admission Status Admission Dx Assessment Epigastric Pain Leukocytosis Vasculitis COPD Plan: PPI Pain control IV Fluids KALEIGH SHINE DO 07/30/232027: Subjective Time Seen by a Provider: 11:00 Subjective/Events-last exam Patient ready for cholecystectomy No pain is reported right now Objective Exam General: Alert, Oriented X3, Cooperative, No Acute Distress Lungs: Clear to Auscultation, Normal Air Movement Heart: Regular Rate, Normal S1, Normal S2, No Murmurs Psych/Mental Status: Mental Status NL, Mood NL Assessment/Plan Assessment/Plan Assess & Plan/Chief Complaint Cholecystectomy Supervisory-Addendum Brief Verification & Attestation Participated in pt care: history, MDM, physical Personally performed: exam, history, MDM, supervision of care Care discussed with: Medical Student Procedures: n/a Results interpretation: Verified all documentation Verification and Attestation of Medical Student E/M Service A medical student performed and documented this service in my presence. I reviewed and verified all information documented by the medical student and made modifications to such information, when appropriate. I personally performed the physical exam and medical decision making. Kaleigh Shine Jul 30, 2023,20:27 HENRIK HIGGINS Jul 30, 2023 12:41 KALEIGH SHINE DO Jul 30, 2023 20:28
[2023-07-30] MEDS ORDERED: CLINDAMYCIN 600 MG/50 ML IV ONE (12:46)
[2023-07-30] MEDS ORDERED: PRE MIX IV ONE (12:46)
[2023-07-30] MEDS ORDERED: HYDROmorphone INJECTION 2 MG/ML VIAL ONE (13:14)
[2023-07-30] MEDS ORDERED: SEVOFLURANE (ULTANE) 15 ML INHAL SOLN ONE (13:38)
--- NOTE | 2023-07-30 13:54 | Progress Note-Post Operative ---
Post-Operative Progess Note Surgeon (s)/Government Relations Director (s) Surgeon GUMARO WHITNEY MD Government Relations Director: none Pre-Operative Diagnosis sx biliary dyskinesia Post-Operative Diagnosis acute acalculous cholecystitis. Procedure & Operative Findings Date of Procedure 07/30/23 Procedure Performed/Findings laparoscopic cholecystectomy Anesthesia Type get Estimated Blood Loss Estimated blood loss (mL): minimal Specimens/Packing Specimens Removed gallbladder GUMARO WHITNEY MD Jul 30, 2023 13:54
[2023-07-30] MEDS ORDERED: ONDANSETRON INJECTION 4 MG/2 ML (SDV) IVP PRN (14:00)
[2023-07-30] MEDS ORDERED: morphine INJ 10 MG/ML 1ML (SYR OR VIAL) IVP ONE (14:00)
[2023-07-30] MEDS ORDERED: HYDROmorphone INJECTION 2 MG/ML VIAL IV ONE (14:00)
[2023-07-30] MEDS: ONDANSETRON INJECTION 4 MG/2 ML (SDV) IV PRN (15:30)
--- NOTE | 2023-07-30 18:06 | Progress Note - Cardiology ---
Cardiology SOAP Progress Note Subjective: No cp or palp or syncope or shortness of breath No n/v/d No focal weakness Objective: I&O/Vital Signs 07/30/23 07/30/23 07/30/23 07/30/23 07:30 07:36 07:37 08:00 Temp 36.6 Pulse 82 Resp 17 B/P (MAP) 123/59 (80) Pulse Ox 95 O2 Delivery Nasal Cannula Nasal Cannula Nasal Cannula Nasal Cannula O2 Flow Rate 2.00 2.00 2.00 2.00 07/30/23 07/30/23 07/30/23 07/30/23 11:08 13:44 13:44 13:50 Temp 36.5 37.1 Pulse 85 Resp 17 20 12 B/P (MAP) 122/62 (82) 146/73 (97) 137/72 (93) Pulse Ox 97 100 100 O2 Delivery Nasal Cannula OxyMask OxyMask OxyMask O2 Flow Rate 2.00 10.00 10.00 10.00 07/30/23 07/30/23 07/30/23 07/30/23 14:00 14:00 14:10 14:15 Resp 12 13 B/P (MAP) 131/74 (93) 125/67 (86) Pulse Ox 100 100 O2 Delivery OxyMask OxyMask OxyMask Nasal Cannula O2 Flow Rate 10.00 10.00 10.00 3.00 07/30/23 07/30/23 07/30/23 07/30/23 14:20 14:28 14:30 14:40 Temp 36.7 Resp 13 17 B/P (MAP) 129/70 (89) 125/63 (83) Pulse Ox 99 98 O2 Delivery Nasal Cannula Nasal Cannula Nasal Cannula Nasal Cannula O2 Flow Rate 3.00 3.00 3.00 3.00 07/30/23 07/30/23 14:49 15:57 Temp 36.6 36.4 Pulse 94 73 Resp 17 18 B/P (MAP) 133/63 (86) 125/76 (92) Pulse Ox 96 95 O2 Delivery Nasal Cannula Nasal Cannula O2 Flow Rate 2.00 2.00 07/30/23 00:00 Intake Total 1780 ml Output Total 400 ml Balance 1380 ml Weight (Pounds): 132 Weight (Ounces): 0.0 Weight (Calculated Kilograms): 59.583591 Constitutional: AAO x 3, well-developed, well-nourished Respiratory: No accessory muscle use; chest expansion is symmetric, chest is bilaterally symmetric, other (generally diminished air entry and prolonged exp) Cardiovascular: regular rate-rhythm, S1 and S2, systolic murmur (soft MELANI at card base) Gastrointestional: tender (RUQ); No guarding, No rebound; audible bowel sounds Extremities: No clubbing, No cyanosis, No significant edema Neurologic/Psychiatric: oriented x 3, other (moves all limbs equally) Skin: normal color, warm/dry; No cyanosis, No cool, No diaphoresis, No rash on exposed areas, No ulcerations on exposed areas Results/Procedures: Labs Laboratory Tests 07/30/23 05:10: White Blood Count 8.1, Red Blood Count 3.47L, Hemoglobin 10.2L, Hematocrit 31L, Mean Corpuscular Volume 91, Mean Corpuscular Hemoglobin 29, Mean Corpuscular Hemoglobin Concent 33, Red Cell Distribution Width 13.3, Platelet Count 254, Mean Platelet Volume 9.5, Immature Granulocyte % (Auto) 0, Neutrophils (%) (Auto) 49, Lymphocytes (%) (Auto) 34, Monocytes (%) (Auto) 13H, Eosinophils (%) (Auto) 4, Basophils (%) (Auto) 1, Neutrophils # (Auto) 3.9, Lymphocytes # (Auto) 2.7, Monocytes # (Auto) 1.0, Eosinophils # (Auto) 0.3, Basophils # (Auto) 0.0, Immature Granulocyte # (Auto) 0.0, Sodium Level 139, Potassium Level 3.5L, Chloride Level 107, Carbon Dioxide Level 23, Anion Gap 9, Blood Urea Nitrogen 13, Creatinine 0.63, Estimat Glomerular Filtration Rate 100, BUN/Creatinine Ratio 21, Glucose Level 89, Calcium Level 7.9L, Corrected Calcium 8.9, Phosphorus Level 2.2L, Magnesium Level 1.9, Total Bilirubin 0.4, Aspartate Amino Transf (AST/SGOT) 19, Alanine Aminotransferase (ALT/SGPT) 42, Alkaline Phosphatase 68, Total Protein 4.9L, Albumin 2.8L Microbiology 07/29/23 MRSA Screen - Final, Complete MRSA not isolated 07/25/23 Blood Culture - Preliminary, Resulted 07/25/23 Urine Culture - Final, Complete Enterobacter cloacae complex Mixed Bacterial Guillermina A/P: Assessment: Ac cholecystitis - s/p lap bhavik on 07-30-[address] Bear Advanced COPD - requires supplemental oxygen No symptoms of angina of CHF - echo on 07-30-23: LVEF 50-55%, mild MR, PASP 30-35 mmHg Plan: Cardiac status clinically stable I answered her CV related questions and have advised risk factor GERARD Mohamud MD FACP [facility] Jul 30, 2023 18:06
--- NOTE | 2023-07-30 20:46 | OPERATIVE REPORT ---
DATE OF SERVICE: 07/30/2023 ATTENDING PRIMARY CARE PHYSICIAN: Emily Hummel DO PREOPERATIVE DIAGNOSIS: Symptomatic biliary dyskinesia. POSTOPERATIVE DIAGNOSIS: Acute acalculous cholecystitis. PROCEDURE: Laparoscopic cholecystectomy. SURGEON: Luis Enrique Bear M.D. COPY AND PRINT ASSOCIATE: Tarun Garcia APRN ANESTHESIA: General endotracheal. ESTIMATED BLOOD LOSS: Minimal. FINDINGS: Necrotic early necrotic gallbladder with gallbladder wall inflammation, no stones. DISPOSITION: The patient tolerated the procedure well. INDICATIONS: The patient is a 62-year-old female who developed chest discomfort as well as worsening shortness of breath. She does have a history of chronic obstructive pulmonary disease and has had issues with exacerbation of COPD for years. Upon further questioning, she had reported that she had had a history of reflux as well as acid indigestion; however, not severe. She states that due to her recent issues with exacerbation of COPD, she has been placed on steroids multiple times and this has caused a significant increase in weight, which has caused worsening reflux type of symptoms. She underwent an EGD on 07/27/2023, and was found to have reflux esophagitis, [place] grade C as well as a small hiatal hernia 2 cm in size and moderate gastritis, and she was treated appropriately. She continued to have symptoms of pain as well as nausea and vomiting. An ultrasound was performed, which did not show any gallstones; however, a HIDA scan was performed, which did show a low ejection fraction of 11%. DESCRIPTION OF PROCEDURE: The patient was brought to the operating room, laid supine on the table. After adequate IV pain and sedative medications and general endotracheal intubation, the abdomen was prepped and draped in standard surgical fashion. A 0.5% Marcaine with epinephrine was used to anesthetize the overlying skin in the left upper abdominal quadrant and a transverse skin incision made using #15 blade. An 0 silk suture was applied to the medial aspect of the incision for retraction and a Veress needle inserted with a low opening pressure of 0 mmHg and the abdomen was then insufflated to 15 mmHg pressure. The Veress needle removed and a 5-mm trocar placed followed by a 5-mm 45-degree angle laparoscope visualized the peritoneal cavity. The patient did have hepatomegaly as well as thick omentum and mesentery. Upon visualization of the gallbladder, there was an acute cholecystitis with gallbladder wall thickening as well as changes consistent with early necrosis. Under direct visualization, we then proceeded to place a supraumbilical 10-mm port after the skin and peritoneal lining were anesthetized using 0.5% Marcaine with epinephrine and a transverse skin incision made using a #15 blade. In a similar manner, a right upper abdominal quadrant 5-mm port was placed. The patient was then placed in reverse Trendelenburg position as well as plane right side up, left side down. The fundus of the gallbladder was then retracted anteriorly and superiorly. Omental adhesions of the fundus were then taken down using blunt dissection as well as electrocautery on the hook instrument. The hepatoduodenal ligament was then dissected using blunt dissection as well as electrocautery using the hook instrument as well as the [place] dissector. The entire critical view of safety was identified including the triangle of Calot as well as the cystic duct and artery as the only 2 structures going into the gallbladder as well as the cystic plate behind the proximal gallbladder. A timeout was then taken and the cystic duct and artery were then clipped proximally and distally and cut with EndoShears. The gallbladder was then dissected off of the liver bed using cautery on hook instrument with visualization of good hemostasis as well as no leaking ducts of Luschka. The gallbladder was removed through the 10-mm port site using an EndoCatch bag. A 19-Uzbek Anthony-Sierra drain was then placed and pulled out of the left upper abdominal quadrant 5-mm port. The drain was then placed in the gallbladder fossa. The drain was then sutured to the skin using 3-0 nylon suture. The fascia and peritoneum to the 10-mm port were then closed under direct visualization using a Jonas-Desire device and 0 Vicryl suture. The abdomen was desufflated and remaining ports removed. All skin incisions were closed using 4-0 Monocryl running subcuticular sutures. Wounds were then cleaned and covered in Dermabond. The patient tolerated the procedure well. We will admit her back to the floor and continue with her current regimen of p.r.n. pain and nausea medications. We will also start a clear liquid diet and advance as tolerated. Once she is able to at least tolerate clears, has good pain control with oral pain medication, is ambulating well, we will discharge her home where she will be instructed to do no heavy lifting or exertion for the next 2 weeks. Job ID: [id number] DocumentID: [id number] Dictated Date: 07/30/2023 14:01:58 Rn Pediatric Date: 07/30/2023 20:44:00 Dictated By: LUIS ENRIQUE BEAR MD
[2023-07-31 04:44] VITALS: BP 127/75
[2023-07-31] MEDS: CEFEPIME INJECTION 1,000 MG in NS (IVPB) 50 ML 50 ML IV SCH (04:45)
[2023-07-31 05:36] LABS: BASOPHILS % (AUTO) 0 % (0-10); EOSINOPHILS % (AUTO) 0 % (0-10); HEMATOCRIT 34 % (35-52); HEMOGLOBIN 10.9 g/dL (11.5-16.0); LYMPHOCYTES # (AUTO) 1.3 10^3/uL (1.0-4.0); LYMPHOCYTES % (AUTO) 12 % (12-44); MEAN CORPUSCULAR HEMOGLOBIN 29 pg (25-34); MEAN CORPUSCULAR HGB CONC 32 g/dL (32-36); MEAN CORPUSCULAR VOLUME 91 fL (80-99); MEAN PLATELET VOLUME 9.3 fL (9.0-12.2); MONOCYTES # (AUTO) 0.6 10^3/uL (0.0-1.0); MONOCYTES % (AUTO) 5 % (0-12); NEUTROPHILS # (AUTO) 9.2 10^3/uL (1.8-7.8); NEUTROPHILS % (AUTO) 82 % (42-75); PLATELET COUNT 300 10^3/uL (130-400); WHITE BLOOD COUNT 11.2 10^3/uL (4.3-11.0)
[2023-07-31 05:53] LABS: ALBUMIN 3.3 GM/DL (3.2-4.5); POTASSIUM 4.5 MMOL/L (3.6-5.0)
[2023-07-31 05:54] LABS: CALCIUM 8.5 MG/DL (8.5-10.1)
[2023-07-31 05:57] LABS: BILIRUBIN,TOTAL 0.4 MG/DL (0.1-1.0)
[2023-07-31 05:58] LABS: PHOSPHORUS 2.5 MG/DL (2.3-4.7)
[2023-07-31 05:59] LABS: CREATININE SERUM 0.68 MG/DL (0.60-1.30)
[2023-07-31] MEDS: MAGNESIUM 1 GM/100 ML IVPB 100 ML IV SCH (06:00)
[2023-07-31] MEDS: POTASSIUM CL 10MEQ/50ML IVPB 50 ML IV SCH (06:00)
[2023-07-31] MEDS: POTASSIUM CHLORIDE 20 MEQ TABLET PO SCH (06:01)
[2023-07-31 06:02] LABS: MAGNESIUM 2.4 MG/DL (1.6-2.4)
[2023-07-31] MEDS: SUCRALFATE 1 GM TABLET PO SCH ×2 (06:32→10:43)
[2023-07-31] MEDS: buPROPion SR 150 MG TABLET PO SCH (06:32)
[2023-07-31] MEDS: FLUTICASONE/VILANTEROL 200/25 MCG (7 DOSES) IH SCH (06:47)
[2023-07-31] MEDS: TIOTROPIUM INH 4 GM (SPIRIVA Respimat) IH SCH (06:48)
--- NOTE | 2023-07-31 07:01 | Anesthesia-General Post-Op ---
General Patient Condition Mental Status/LOC: Same as Preop Cardiovascular: Satisfactory Nausea/Vomiting: Absent Respiratory: Satisfactory Pain: Controlled Complications: Absent Post Op Complications Complications None Follow Up Care/Instructions Patient Instructions None needed. Anesthesia/Patient Condition Patient Condition Patient was seen yesterday in PACU, awake and doing well, no complaints, stable vital signs, no apparent adverse anesthesia problems. No complications reported per nursing. PREM TAVARES DO Jul 31, 2023 07:01
[2023-07-31 07:47] VITALS: BP 135/64
--- NOTE | 2023-07-31 08:35 | Progress Note ---
HENRIK HIGGINS 07/31/23 0835: Progress Note 62 year old female with a history of COPD who presented to the ER on 07/25/2023 having chest pain/epigastric pain. Patient originally went to the ER a few days before this admission for GI distress. This was attributed to the antibiotics and prendisone she was taking at the time. Patient presented to our institution with pain that radiated to her back. It felt like a tearing sensation and it was a 10/10 for pain. Pain was well controlled with pain medication and IV fluids. Patient had continued discomfort and epigastric pain, surgery was consulted. An EGD was performed which showed reflux and gastritis, as well as small hiatal hernia. After persistent pain with nausea and vomiting a HIDA scan was performed which showed an ejection fraction of 9%. Reproduction of symptoms with administration of kinevac analogue was consistent with symptomatic biliary dyskinesia. Cardiac clearance was obtained and laparoscopic cholecystectomy was performed on 07/30/2023. On day of discharge patient reports feeling much better- ambulating without discomfort, denies nausea/vomiting or any symptoms. KALEIGH SHINE DO 08/01/23 0441: Supervisory-Addendum Brief Verification & Attestation Participated in pt care: history, MDM, physical Personally performed: exam, history, MDM, supervision of care Care discussed with: Medical Student Procedures: n/a Results interpretation: Verified all documentation Verification and Attestation of Medical Student E/M Service A medical student performed and documented this service in my presence. I reviewed and verified all information documented by the medical student and made modifications to such information, when appropriate. I personally performed the physical exam and medical decision making. Kaleigh Shine Aug 01, 2023,04:41 HENRIK HIGGINS Jul 31, 2023 08:35 KALEIGH SHINE DO Aug 01, 2023 04:41
[2023-07-31] MEDS: amLODIPine 5 MG TABLET PO SCH (08:37)
[2023-07-31] MEDS: PANTOPRAZOLE 40 MG TABLET PO SCH (08:37)
--- NOTE | 2023-07-31 09:33 | Progress Note - Cardiology ---
Cardiology SOAP Progress Note Objective: I&O/Vital Signs 07/30/23 07/30/23 07/30/23 07/31/23 22:25 23:04 23:05 00:25 Temp 36.8 35.9 36.8 Pulse 86 Resp 18 B/P (MAP) 120/64 (82) Pulse Ox 93 O2 Delivery Room Air Nasal Cannula O2 Flow Rate 2.00 07/31/23 07/31/23 07/31/23 07/31/23 04:44 06:49 06:50 07:47 Temp 35.9 36.4 Pulse 86 91 Resp 18 17 B/P (MAP) 127/75 (92) 135/64 (87) Pulse Ox 95 96 O2 Delivery Nasal Cannula Nasal Cannula Nasal Cannula Nasal Cannula O2 Flow Rate 2.00 2.00 2.00 2.00 2.00 07/31/23 08:00 O2 Delivery Nasal Cannula O2 Flow Rate 2.00 07/31/23 00:00 Intake Total 690 ml Output Total 520 ml Balance 170 ml Weight (Pounds): 132 Weight (Ounces): 0.0 Weight (Calculated Kilograms): 59.115460 Constitutional: AAO x 3, well-developed, well-nourished Respiratory: No accessory muscle use; chest expansion is symmetric, chest is bilaterally symmetric, other (generally diminished air entry and prolonged exp) Cardiovascular: regular rate-rhythm, S1 and S2, systolic murmur (soft MELANI at card base) Gastrointestional: tender (RUQ); No guarding, No rebound; audible bowel sounds Extremities: No clubbing, No cyanosis, No significant edema Neurologic/Psychiatric: oriented x 3, other (moves all limbs equally) Skin: normal color, warm/dry; No cyanosis, No cool, No diaphoresis, No rash on exposed areas, No ulcerations on exposed areas Results/Procedures: Labs Laboratory Tests 07/31/23 05:08: Sodium Level 138, Potassium Level 4.5, Chloride Level 105, Carbon Dioxide Level 21, Anion Gap 12, Blood Urea Nitrogen 8, Creatinine 0.68, Estimat Glomerular Filtration Rate 98, BUN/Creatinine Ratio 12, Glucose Level 117H, Calcium Level 8.5, Corrected Calcium 9.1, Phosphorus Level 2.5, Magnesium Level 2.4, Total Bilirubin 0.4, Aspartate Amino Transf (AST/SGOT) 133H, Alanine Aminotransferase (ALT/SGPT) 145H, Alkaline Phosphatase 99, Total Protein 6.0L, Albumin 3.3 07/31/23 05:15: White Blood Count 11.2H, Red Blood Count 3.73L, Hemoglobin 10.9L, Hematocrit 34L , Mean Corpuscular Volume 91, Mean Corpuscular Hemoglobin 29, Mean Corpuscular Hemoglobin Concent 32, Red Cell Distribution Width 13.1, Platelet Count 300, Mean Platelet Volume 9.3, Immature Granulocyte % (Auto) 1, Neutrophils (%) (Auto) 82H, Lymphocytes (%) (Auto) 12, Monocytes (%) (Auto) 5, Eosinophils (%) (Auto) 0, Basophils (%) (Auto) 0, Neutrophils # (Auto) 9.2H, Lymphocytes # (Auto) 1.3, Monocytes # (Auto) 0.6, Eosinophils # (Auto) 0.0, Basophils # (Auto) 0.0, Immature Granulocyte # (Auto) 0.1 Microbiology 07/29/23 MRSA Screen - Final, Complete MRSA not isolated 07/25/23 Blood Culture - Preliminary, Resulted 07/25/23 Urine Culture - Final, Complete Enterobacter cloacae complex Mixed Bacterial Guillermina Laboratory Tests 07/30/23 05:10 07/31/23 05:08 07/31/23 05:15 A/P: Assessment: Ac cholecystitis - s/p lap bhavik on 07-30-[address] Bear Advanced COPD - requires supplemental oxygen No symptoms of angina of CHF - echo on 07-30-23: LVEF 50-55%, mild MR, PASP 30-35 mmHg Plan: Cardiac status clinically stable Continue current antihypertensive regimen ORAL DACOSTA Jul 31, 2023 09:33
[2023-07-31] MEDS: LACTATED RINGERS 1,000 ML 1,000 ML IV SCH (10:44)
[2023-07-31] MEDS: ENOXAPARIN 40 MG/0.4 ML SYRINGE SC SCH (10:45)
[2023-07-31] MEDS: RT-ALBUTEROL SULF 2.5 MG/3 ML PRE-MIX VIAL INH PRN (11:05)
[2023-07-31 11:24] VITALS: BP 128/67
[2023-07-31] MEDS ORDERED: SUCR1TAB PO (11:58)
[2023-07-31] MEDS ORDERED: OXC5T PO (11:58)
[2023-07-31] MEDS ORDERED: PANT40TA52 PO (11:58)
[2023-07-31] MEDS ORDERED: ONDA8TAB13 SL (11:58)
--- NOTE | 2023-07-31 11:59 | Discharge Summary ---
Diagnosis/Chief Complaint Date of Admission Jul 26, 2023 at 04:44 Date of Discharge Discharge Date: Jul 31, 2023 Discharge Diagnosis Assessment Epigastric Pain due to biliary dyskinesia status postcholecystectomy Leukocytosis Vasculitis COPD Reason Hospital Visit Chief complaint: Abdominal pain HPI: This is a 62-year-old female Who presented to the ER with abdominal pain was found to have findings consistent with vasculitis on CT scan. General surgery was consulted and will likely undergo EGD tomorrow. Discharge Summary Discharge Physical Examination Allergies: Coded Allergies: amoxicillin (Verified Allergy, Mild, RASH, 05/11/19) Vitals & I&Os Vital Signs Date Time Temp Pulse Resp B/P (MAP) Pulse Ox O2 Delivery O2 Flow Rate FiO2 07/31/23 16:03 36.5 96 17 128/67 97 Nasal Cannula 2.00 07/31/23 11:06 97 General Appearance: Alert, Oriented X3, Cooperative Respiratory: Clear to Auscultation Cardiovascular: Regular Rate Psych/Mental Status: Mental Status NL Hospital Course Was the Problem List Reviewed?: Yes 62 year old female with a history of COPD who presented to the ER on 07/25/2023 having chest pain/epigastric pain. Patient originally went to the ER a few days before this admission for GI distress. This was attributed to the antibiotics and prendisone she was taking at the time. Patient presented to our institution with pain that radiated to her back. It felt like a tearing sensation and it was a 10/10 for pain. Pain was well controlled with pain medication and IV fluids. Patient had continued discomfort and epigastric pain, surgery was consulted. An EGD was performed which showed reflux and gastritis, as well as small hiatal hernia. After persistent pain with nausea and vomiting a HIDA scan was performed which showed an ejection fraction of 9%. Reproduction of symptoms with administration of kinevac analogue was consistent with symptomatic biliary dyskinesia. Cardiac clearance was obtained and laparoscopic cholecystectomy was performed on 07/30/2023. On day of discharge patient reports feeling much better- ambulating without discomfort, denies nausea/vomiting or any symptoms. HENRIK HIGGINS Labs (last 24 hrs) Laboratory Tests 07/25/23 22:42: White Blood Count 20.8H, Red Blood Count 4.88, Hemoglobin 14.5, Hematocrit 44, Mean Corpuscular Volume 89, Mean Corpuscular Hemoglobin 30, Mean Corpuscular Hemoglobin Concent 33, Red Cell Distribution Width 13.5, Platelet Count 348, Mean Platelet Volume 8.8L, Immature Granulocyte % (Auto) 1, Neutrophils (%) (Auto) 68, Lymphocytes (%) (Auto) 21, Monocytes (%) (Auto) 9, Eosinophils (%) (Auto) 1, Basophils (%) (Auto) 1, Neutrophils # (Auto) 14.2H, Lymphocytes # (Auto) 4.3H, Monocytes # (Auto) 1.9H, Eosinophils # (Auto) 0.2, Basophils # (Auto) 0.1, Immature Granulocyte # (Auto) 0.2H, Neutrophils % (Manual) 68, Lymphocytes % (Manual) 23, Monocytes % (Manual) 7, Eosinophils % (Manual) 1, Reactive Lymphocytes 1, Platelet Estimate ADEQUATE, Stomatocytes SLIGHT, Prothrombin Time 12.6, INR Comment 0.9, Activated Partial Thromboplast Time 24, Sodium Level 137, Potassium Level 3.6, Chloride Level 101, Carbon Dioxide Level 21, Anion Gap 15H, Blood Urea Nitrogen 14, Creatinine 0.91, Estimat Glomerular Filtration Rate 71, BUN/Creatinine Ratio 15, Glucose Level 126H, Calcium Level 9.3, Corrected Calcium 9.3, Total Bilirubin 0.7, Aspartate Amino Transf (AST/SGOT) 20, Alanine Aminotransferase (ALT/SGPT) 29, Alkaline Phosphatase 98, C-Reactive Protein High Sensitivity 3.82H, Total Protein 6.8, Albumin 4.0, Amylase Level 92, Lipase 17 07/25/23 22:55: Urine Color ORANGE, Urine Clarity CLEAR, Urine pH 5.5, Urine Specific [place] >=1.030, Urine Protein 1+H, Urine Glucose (UA) NEGATIVE, Urine Ketones NEGATIVE, Urine Nitrite NEGATIVE, Urine Bilirubin 1+H, Urine Urobilinogen 0.2, Urine Leukocyte Esterase 1+H, Urine RBC (Auto) 1+H, Urine RBC 0-2, Urine WBC 5-10H, Urine Squamous Epithelial Cells >50H, Urine Crystals NONE, Urine Bacteria TRACE, Urine Casts NONE, Urine Mucus MODERATEH, Urine Yeast FEWH, Urine Culture Indicated CULTURE PENDING 07/25/23 23:03: Lactic Acid Level 1.09 07/26/23 04:44: Lab Scanned Report Referred Lab Report 07/26/23 06:10: White Blood Count 14.0H, Red Blood Count 4.24, Hemoglobin 12.6, Hematocrit 38, Mean Corpuscular Volume 89, Mean Corpuscular Hemoglobin 30, Mean Corpuscular Hemoglobin Concent 34, Red Cell Distribution Width 13.6, Platelet Count 283, Mean Platelet Volume 8.7L, Immature Granulocyte % (Auto) 1, Neutrophils (%) (Auto) 61, Lymphocytes (%) (Auto) 28, Monocytes (%) (Auto) 10, Eosinophils (%) (Auto) 1, Basophils (%) (Auto) 0, Neutrophils # (Auto) 8.5H, Lymphocytes # (Auto) 3.9, Monocytes # (Auto) 1.4H, Eosinophils # (Auto) 0.2, Basophils # (Auto) 0.1, Immature Granulocyte # (Auto) 0.1, Sodium Level 138, Potassium Level 3.6, Chloride Level 102, Carbon Dioxide Level 24, Anion Gap 12, Blood Urea Nitrogen 12, Creatinine 0.79, Estimat Glomerular Filtration Rate 85, BUN/Creatin ine Ratio 15, Glucose Level 100, Calcium Level 8.5, Magnesium Level 2.3, Total Bilirubin 0.7, Direct Bilirubin 0.3, Indirect Bilirubin 0.4, Aspartate Amino Transf (AST/SGOT) 30, Alanine Aminotransferase (ALT/SGPT) 43, Alkaline Phosphatase 77, Total Protein 5.4L, Albumin 3.3 07/27/23 05:23: White Blood Count 10.0, Red Blood Count 3.75L, Hemoglobin 11.0L, Hematocrit 34L, Mean Corpuscular Volume 92, Mean Corpuscular Hemoglobin 29, Mean Corpuscular Hemoglobin Concent 32, Red Cell Distribution Width 13.6, Platelet Count 256, Mean Platelet Volume 9.0, Immature Granulocyte % (Auto) 1, Neutrophils (%) (Auto) 54, Lymphocytes (%) (Auto) 32, Monocytes (%) (Auto) 11, Eosinophils (%) (Auto) 3, Basophils (%) (Auto) 1, Neutrophils # (Auto) 5.4, Lymphocytes # (Auto) 3.2, Monocytes # (Auto) 1.1H, Eosinophils # (Auto) 0.3, Basophils # (Auto) 0.1, Immature Granulocyte # (Auto) 0.1, Sodium Level 141, Potassium Level 4.4, Chloride Level 107, Carbon Dioxide Level 27, Anion Gap 7, Blood Urea Nitrogen 7, Creatinine 0.70, Estimat Glomerular Filtration Rate 98, BUN/Creatinine Ratio 10, Glucose Level 88, Calcium Level 8.3L, Magnesium Level 2.2, Total Bilirubin 0.5, Aspartate Amino Transf (AST/SGOT) 22, Alanine Aminotransferase (ALT/SGPT) 37, Alkaline Phosphatase 68, Total Protein 4.9L, Albumin 2.9L, Corrected Calcium 9.2, Phosphorus Level 3.6, Amylase Level 46, Lipase 13 07/28/23 05:31: Sodium Level 135, Potassium Level 3.6, Chloride Level 101, Carbon Dioxide Level 25, Anion Gap 9, Blood Urea Nitrogen 5L, Creatinine 0.68, Estimat Glomerular Filtration Rate 98, BUN/Creatinine Ratio 7, Glucose Level 116H, Calcium Level 8.6, Magnesium Level 2.0, Total Bilirubin 0.7, Aspartate Amino Transf (AST/SGOT) 32, Alanine Aminotransferase (ALT/SGPT) 64H, Alkaline Phosphatase 85, Total Protein 5.9L, Albumin 3.4, Corrected Calcium 9.1, Phosphorus Level 2.4 07/28/23 05:36: White Blood Count 13.0H, Red Blood Count 4.27, Hemoglobin 12.4, Hematocrit 38, Mean Corpuscular Volume 90, Mean Corpuscular Hemoglobin 29, Mean Corpuscular Hemoglobin Concent 32, Red Cell Distribution Width 13.2, Platelet Count 289, Mean Platelet Volume 9.1, Immature Granulocyte % (Auto) 1, Neutrophils (%) (Auto) 73, Lymphocytes (%) (Auto) 14, Monocytes (%) (Auto) 11, Eosinophils (%) (Auto) 1, Basophils (%) (Auto) 0, Neutrophils # (Auto) 9.6H, Lymphocytes # (Auto) 1.8, Monocytes # (Auto) 1.5H, Eosinophils # (Auto) 0.1, Basophils # (Auto) 0.0, Immature Granulocyte # (Auto) 0.1 07/29/23 05:40: White Blood Count 10.9, Red Blood Count 4.03, Hemoglobin 11.8, Hematocrit 37, Mean Corpuscular Volume 91, Mean Corpuscular Hemoglobin 29, Mean Corpuscular Hemoglobin Concent 32, Red Cell Distribution Width 13.2, Platelet Count 272, M stacy Platelet Volume 9.2, Immature Granulocyte % (Auto) 1, Neutrophils (%) (Auto) 61, Lymphocytes (%) (Auto) 23, Monocytes (%) (Auto) 12, Eosinophils (%) (Auto) 3, Basophils (%) (Auto) 0, Neutrophils # (Auto) 6.7, Lymphocytes # (Auto) 2.5, Monocytes # (Auto) 1.3H, Eosinophils # (Auto) 0.3, Basophils # (Auto) 0.0, Immature Granulocyte # (Auto) 0.1, Sodium Level 137, Potassium Level 4.0, Chloride Level 103, Carbon Dioxide Level 25, Anion Gap 9, Blood Urea Nitrogen 8, Creatinine 0.70, Estimat Glomerular Filtration Rate 98, BUN/Creatinine Ratio 11, Glucose Level 102, Calcium Level 8.5, Corrected Calcium 9.1, Phosphorus Level 2.0L, Magnesium Level 2.0, Total Bilirubin 0.8, Aspartate Amino Transf (AST/SGOT) 32, Alanine Aminotransferase (ALT/SGPT) 53, Alkaline Phosphatase 79, Total Protein 5.8L, Albumin 3.3 07/30/23 05:10: White Blood Count 8.1, Red Blood Count 3.47L, Hemoglobin 10.2L, Hematocrit 31L, Mean Corpuscular Volume 91, Mean Corpuscular Hemoglobin 29, Mean Corpuscular Hemoglobin Concent 33, Red Cell Distribution Width 13.3, Platelet Count 254, Mean Platelet Volume 9.5, Immature Granulocyte % (Auto) 0, Neutrophils (%) (Auto) 49, Lymphocytes (%) (Auto) 34, Monocytes (%) (Auto) 13H, Eosinophils (%) (Auto) 4, Basophils (%) (Auto) 1, Neutrophils # (Auto) 3.9, Lymphocytes # (Auto) 2.7, Monocytes # (Auto) 1.0, Eosinophils # (Auto) 0.3, Basophils # (Auto) 0.0, Immature Granulocyte # (Auto) 0.0, Sodium Level 139, Potassium Level 3.5L, Chloride Level 107, Carbon Dioxide Level 23, Anion Gap 9, Blood Urea Nitrogen 13, Creatinine 0.63, Estimat Glomerular Filtration Rate 100, BUN/Creatinine Ratio 21, Glucose Level 89, Calcium Level 7.9L, Corrected Calcium 8.9, Phosphorus Level 2.2L, Magnesium Level 1.9, Total Bilirubin 0.4, Aspartate Amino Transf (AST/SGOT) 19, Alanine Aminotransferase (ALT/SGPT) 42, Alkaline Phosphatase 68, Total Protein 4.9L, Albumin 2.8L 07/31/23 05:08: Sodium Level 138, Potassium Level 4.5, Chloride Level 105, Carbon Dioxide Level 21, Anion Gap 12, Blood Urea Nitrogen 8, Creatinine 0.68, Estimat Glomerular Filtration Rate 98, BUN/Creatinine Ratio 12, Glucose Level 117H, Calcium Level 8.5, Corrected Calcium 9.1, Phosphorus Level 2.5, Magnesium Level 2.4, Total Bilirubin 0.4, Aspartate Amino Transf (AST/SGOT) 133H, Alanine Aminotransferase (ALT/SGPT) 145H, Alkaline Phosphatase 99, Total Protein 6.0L, Albumin 3.3 07/31/23 05:15: White Blood Count 11.2H, Red Blood Count 3.73L, Hemoglobin 10.9L, Hematocrit 34L , Mean Corpuscular Volume 91, Mean Corpuscular Hemoglobin 29, Mean Corpuscular Hemoglobin Concent 32, Red Cell Distribution Width 13.1, Platelet Count 300, Mean Platelet Volume 9.3, Immature Granulocyte % (Auto) 1, Neutrophils (%) (Auto) 82H, Lymphocytes (%) (Auto) 12, Monocytes (%) (Auto) 5, Eosinophils (%) (Auto) 0, Basophils (%) (Auto) 0, Neutrophils # (Auto) 9.2H, Lymphocytes # ( Auto) 1.3, Monocytes # (Auto) 0.6, Eosinophils # (Auto) 0.0, Basophils # (Auto) 0.0, Immature Granulocyte # (Auto) 0.1 Microbiology 07/29/23 MRSA Screen - Final, Complete MRSA not isolated 07/25/23 Blood Culture - Final, Complete 07/25/23 Urine Culture - Final, Complete Enterobacter cloacae complex Mixed Bacterial Guillermina Pending Labs Microbiology Date/Time Source Procedure Growth Status 07/29/23 20:06 Nasal MRSA Screen - Final MRSA not isolated Complete 07/26/23 05:00 Nasal MRSA Screen - Final MRSA not isolated Complete 07/25/23 23:22 Peripheral Rt Ac Blood Culture - Final Complete 07/25/23 23:03 Peripheral Lt Ac Blood Culture - Final Complete 07/25/23 22:55 Urine Clean Catch Urine Culture - Final Enterobacter cloacae complex Mixed Bacterial Guillermina Complete Laboratory Tests 07/25/23 22:42: White Blood Count 20.8, Red Blood Count 4.88, Hemoglobin 14.5, Hematocrit 44, Mean Corpuscular Volume 89, Mean Corpuscular Hemoglobin 30, Mean Corpuscular Hemoglobin Concent 33, Red Cell Distribution Width 13.5, Platelet Count 348, Mean Platelet Volume 8.8, Immature Granulocyte % (Auto) 1, Neutrophils (%) (Auto) 68, Lymphocytes (%) (Auto) 21, Monocytes (%) (Auto) 9, Eosinophils (%) (Auto) 1, Basophils (%) (Auto) 1, Neutrophils # (Auto) 14.2, Lymphocytes # (Auto) 4.3, Monocytes # (Auto) 1.9, Eosinophils # (Auto) 0.2, Basophils # (Auto) 0.1, Immature Granulocyte # (Auto) 0.2, Neutrophils % (Manual) 68, Lymphocytes % (Manual) 23, Monocytes % (Manual) 7, Eosinophils % (Manual) 1, Reactive Lymphocytes 1, Platelet Estimate ADEQUATE, Stomatocytes SLIGHT, Prothrombin Time 12.6, INR Comment 0.9, Activated Partial Thromboplast Time 24, Sodium Level 137, Potassium Level 3.6, Chloride Level 101, Carbon Dioxide Level 21, Anion Gap 15, Blood Urea Nitrogen 14, Creatinine 0.91, Estimat Glomerular Filtration Rate 71, BUN/Creatinine Ratio 15, Glucose Level 126, Calcium Level 9.3, Corrected Calcium 9.3, Total Bilirubin 0.7, Aspartate Amino Transf (AST/SGOT) 20, Alanine Aminotransferase (ALT/SGPT) 29, Alkaline Phosphatase 98, C-Reactive Protein High Sensitivity 3.82, Total Protein 6.8, Albumin 4.0, Amylase Level 92, Lipase 17 07/25/23 22:55: Urine Color ORANGE, Urine Clarity CLEAR, Urine pH 5.5, Urine Specific [place] >=1.030, Urine Protein 1+, Urine Glucose (UA) NEGATIVE, Urine Ketones NEGATIVE, Urine Nitrite NEGATIVE, Urine Bilirubin 1+, Urine Urobilinogen 0.2, Urine Leukocyte Esterase 1+, Urine RBC (Auto) 1+, Urine RBC 0-2, Urine WBC 5-10, Urine Squamous Epithelial Cells >50, Urine Crystals NONE, Urine Bacteria TRACE, Urine Casts NONE, Urine Mucus MODERATE, Urine Yeast FEW, Urine Culture Indicated CULTURE PENDING 07/25/23 23:03: Lactic Acid Level 1.09 07/26/23 04:44: Lab Scanned Report Referred Lab Report 07/26/23 06:10: White Blood Count 14.0, Red Blood Count 4.24, Hemoglobin 12.6, Hematocrit 38, Mean Corpuscular Volume 89, Mean Corpuscular Hemoglobin 30, Mean Corpuscular Hemoglobin Concent 34, Red Cell Distribution Width 13.6, Platelet Count 283, Mean Platelet Volume 8.7, Immature Granulocyte % (Auto) 1, Neutrophils (%) (Auto) 61, Lymphocytes (%) (Auto) 28, Monocytes (%) (Auto) 10, Eosinophils (%) (Auto) 1, Basophils (%) (Auto) 0, Neutrophils # (Auto) 8.5, Lymphocytes # (Auto) 3.9, Monocytes # (Auto) 1.4, Eosinophils # (Auto) 0.2, Basophils # (Auto) 0.1, Immature Granulocyte # (Auto) 0.1, Sodium Level 138, Potassium Level 3.6, Chl oride Level 102, Carbon Dioxide Level 24, Anion Gap 12, Blood Urea Nitrogen 12, Creatinine 0.79, Estimat Glomerular Filtration Rate 85, BUN/Creatinine Ratio 15, Glucose Level 100, Calcium Level 8.5, Magnesium Level 2.3, Total Bilirubin 0.7, Direct Bilirubin 0.3, Indirect Bilirubin 0.4, Aspartate Amino Transf (AST/SGOT) 30, Alanine Aminotransferase (ALT/SGPT) 43, Alkaline Phosphatase 77, Total Protein 5.4, Albumin 3.3 07/27/23 05:23: White Blood Count 10.0, Red Blood Count 3.75, Hemoglobin 11.0, Hematocrit 34, Mean Corpuscular Volume 92, Mean Corpuscular Hemoglobin 29, Mean Corpuscular Hemoglobin Concent 32, Red Cell Distribution Width 13.6, Platelet Count 256, Mean Platelet Volume 9.0, Immature Granulocyte % (Auto) 1, Neutrophils (%) (Au to) 54, Lymphocytes (%) (Auto) 32, Monocytes (%) (Auto) 11, Eosinophils (%) (Auto) 3, Basophils (%) (Auto) 1, Neutrophils # (Auto) 5.4, Lymphocytes # (Auto) 3.2, Monocytes # (Auto) 1.1, Eosinophils # (Auto) 0.3, Basophils # (Auto) 0.1, Immature Granulocyte # (Auto) 0.1, Sodium Level 141, Potassium Level 4.4, Chloride Level 107, Carbon Dioxide Level 27, Anion Gap 7, Blood Urea Nitrogen 7, Creatinine 0.70, Estimat Glomerular Filtration Rate 98, BUN/Creatinine Ratio 10, Glucose Level 88, Calcium Level 8.3, Magnesium Level 2.2, Total Bilirubin 0.5, Aspartate Amino Transf (AST/SGOT) 22, Alanine Aminotransferase (ALT/SGPT) 37, Alkaline Phosphatase 68, Total Protein 4.9, Albumin 2.9, Corrected Calcium 9.2, Phosphorus Level 3.6, Amylase Level 46, Lipase 13 07/28/23 05:31: Sodium Level 135, Potassium Level 3.6, Chloride Level 101, Carbon Dioxide Level 25, Anion Gap 9, Blood Urea Nitrogen 5, Creatinine 0.68, Estimat Glomerular Filtration Rate 98, BUN/Creatinine Ratio 7, Glucose Level 116, Calcium Level 8.6, Magnesium Level 2.0, Total Bilirubin 0.7, Aspartate Amino Transf (AST/SGOT) 32, Alanine Aminotransferase (ALT/SGPT) 64, Alkaline Phosphatase 85, Total Protein 5.9, Albumin 3.4, Corrected Calcium 9.1, Phosphorus Level 2.4 07/28/23 05:36: White Blood Count 13.0, Red Blood Count 4.27, Hemoglobin 12.4, Hematocrit 38, Mean Corpuscular Volume 90, Mean Corpuscular Hemoglobin 29, Mean Corpuscular Hemoglobin Concent 32, Red Cell Distribution Width 13.2, Platelet Count 289, Mean Platelet Volume 9.1, Immature Granulocyte % (Auto) 1, Neutrophils (%) (Auto) 73, Lymphocytes (%) (Auto) 14, Monocytes (%) (Auto) 11, Eosinophils (%) (Auto) 1, Basophils (%) (Auto) 0, Neutrophils # (Auto) 9.6, Lymphocytes # (Auto) 1.8, Monocytes # (Auto) 1.5, Eosinophils # (Auto) 0.1, Basophils # (Auto) 0.0, Immature Granulocyte # (Auto) 0.1 07/29/23 05:40: White Blood Count 10.9, Red Blood Count 4.03, Hemoglobin 11.8, Hematocrit 37, Mean Corpuscular Volume 91, Mean Corpuscular Hemoglobin 29, Mean Corpuscular Hemoglobin Concent 32, Red Cell Distribution Width 13.2, Platelet Count 272, Mean Platelet Volume 9.2, Immature Granulocyte % (Auto) 1, Neutrophils (%) (Auto) 61, Lymphocytes (%) (Auto) 23, Monocytes (%) (Auto) 12, Eosinophils (%) (Auto) 3, Basophils (%) (Auto) 0, Neutrophils # (Auto) 6.7, Lymphocytes # (Auto) 2.5, Monocytes # (Auto) 1.3, Eosinophils # (Auto) 0.3, Basophils # (Auto) 0.0, Immature Granulocyte # (Auto) 0.1, Sodium Level 137, Potassium Level 4.0, Chloride Level 103, Carbon Dioxide Level 25, Anion Gap 9, Blood Urea Nitrogen 8, Creatinine 0.70, Estimat Glomerular Filtration Rate 98, BUN/Creatinine Ratio 11, Glucose Level 102, Calcium Level 8.5, Corrected Calcium 9.1, Phosphorus Level 2.0, Magnesium Level 2.0, Total Bilirubin 0.8, Aspartate Amino Transf (AST/SGOT) 32, Alanine Aminotransferase (ALT/SGPT) 53, Alkaline Phosphatase 79, Total Protein 5.8, Albumin 3.3 07/30/23 05:10: White Blood Count 8.1, Red Blood Count 3.47, Hemoglobin 10.2, Hematocrit 31, Mean Corpuscular Volume 91, Mean Corpuscular Hemoglobin 29, Mean Corpuscular Hemoglobin Concent 33, Red Cell Distribution Width 13.3, Platelet Count 254, Mean Platelet Volume 9.5, Immature Granulocyte % (Auto) 0, Neutrophils (%) (Auto) 49, Lymphocytes (%) (Auto) 34, Monocytes (%) (Auto) 13, Eosinophils (%) (Auto) 4, Basophils (%) (Auto) 1, Neutrophils # (Auto) 3.9, Lymphocytes # (Auto) 2.7, Monocytes # (Auto) 1.0, Eosinophils # (Auto) 0.3, Basophils # (Auto) 0.0, Immature Granulocyte # (Auto) 0.0, Sodium Level 139, Potassium Level 3.5, Chloride Level 107, Carbon Dioxide Level 23, Anion Gap 9, Blood Urea Nitrogen 13, Creatinine 0.63, Estimat Glomerular Filtration Rate 100, BUN/Creatinine Ratio 21, Glucose Level 89, Calcium Level 7.9, Corrected Calcium 8.9, Phosphorus Level 2.2, Magnesium Level 1.9, Total Bilirubin 0.4, Aspartate Amino Transf (AST/SGOT) 19, Alanine Aminotransferase (ALT/SGPT) 42, Alkaline Phosphatase 68, Total Protein 4.9, Albumin 2.8 07/31/23 05:08: Sodium Level 138, Potassium Level 4.5, Chloride Level 105, Carbon Dioxide Level 21, Anion Gap 12, Blood Urea Nitrogen 8, Creatinine 0.68, Estimat Glomerular Filtration Rate 98, BUN/Creatinine Ratio 12, Glucose Level 117, Calcium Level 8.5, Corrected Calcium 9.1, Phosphorus Level 2.5, Magnesium Level 2.4, Total Bilirubin 0.4, Aspartate Amino Transf (AST/SGOT) 133, Alanine Aminotransferase (ALT/SGPT) 145, Alkaline Phosphatase 99, Total Protein 6.0, Albumin 3.3 07/31/23 05:15: White Blood Count 11.2, Red Blood Count 3.73, Hemoglobin 10.9, Hematocrit 34, Mean Corpuscular Volume 91, Mean Corpuscular Hemoglobin 29, Mean Corpuscular Hemoglobin Concent 32, Red Cell Distribution Width 13.1, Platelet Count 300, Mean Platelet Volume 9.3, Immature Granulocyte % (Auto) 1, Neutrophils (%) (Auto) 82, Lymphocytes (%) (Auto) 12, Monocytes (%) (Auto) 5, Eosinophils (%) (Auto) 0, Basophils (%) (Auto) 0, Neutrophils # (Auto) 9.2, Lymphocytes # (Auto) 1.3, Monocytes # (Auto) 0.6, Eosinophils # (Auto) 0.0, Basophils # (Auto) 0.0, Immature Granulocyte # (Auto) 0.1 Discharge Home Medications: Active Scripts Active Ondansetron Odt (Ondansetron) 8 Mg Tab.rapdis 8 Mg SL Q4H PRN Pantoprazole Sodium 40 Mg Tablet.dr 40 Mg PO BID Sucralfate 1 Gram Tablet 1 Gm PO ACHS Oxyir Tablet (Oxycodone HCl) 5 Mg Tab 5-10 Mg PO Q4H PRN Reported Kari Allergy (Fexofenadine HCl) 60 Mg Tablet 60 Mg PO DAILY PRN Tylenol (Acetaminophen) 325 Mg Tablet 650 Mg PO Q6H PRN Breztri Aerosphere Inhaler (Budesonide/Glycopyr/Formoterol) 160 Mcg-9 Mcg-4.8 Mcg/Actuation Hfa.aer.ad 2 Puff IH BID Hydroxyzine HCl 10 Mg Tablet 10 Mg PO DAILY PRN Ventolin Hfa (Albuterol Sulfate) 18 Gm Hfa.aer.ad 2 Puff INH Q6H PRN Wellbutrin Sr (Bupropion HCl) 150 Mg Tablet.er 150 Mg PO 0700,1600 Amlodipine Besylate 5 Mg Tablet 5 Mg PO DAILY Instructions to patient/family Please see electronic discharge instructions given to patient. EVAN SHINE DO Jul 31, 2023 11:59
--- NOTE | 2023-07-31 13:40 | Progress Note - Cardiology ---
Cardiology SOAP Progress Note Subjective: Feels well No shortness of breath No cp or palp or syncope No n/v/d Objective: I&O/Vital Signs 07/31/23 07/31/23 07/31/23 07/31/23 04:44 06:49 06:50 07:47 Temp 35.9 36.4 Pulse 86 91 Resp 18 17 B/P (MAP) 127/75 (92) 135/64 (87) Pulse Ox 95 96 O2 Delivery Nasal Cannula Nasal Cannula Nasal Cannula Nasal Cannula O2 Flow Rate 2.00 2.00 2.00 2.00 2.00 07/31/23 07/31/23 07/31/23 08:00 11:06 11:24 Temp 36.5 Pulse 96 Resp 17 B/P (MAP) 128/67 (87) Pulse Ox 97 O2 Delivery Nasal Cannula Nasal Cannula Nasal Cannula O2 Flow Rate 2.00 2.00 2.00 FiO2 97 07/31/23 00:00 Intake Total 690 ml Output Total 520 ml Balance 170 ml Weight (Pounds): 132 Weight (Ounces): 0.0 Weight (Calculated Kilograms): [id number] Constitutional: AAO x 3, well-developed, well-nourished Respiratory: No accessory muscle use; chest expansion is symmetric, chest is bilaterally symmetric, other (generally diminished air entry and prolonged exp) Cardiovascular: regular rate-rhythm, S1 and S2, systolic murmur (soft MELANI at card base) Gastrointestional: tender (RUQ); No guarding, No rebound; audible bowel sounds Extremities: No clubbing, No cyanosis, No significant edema Neurologic/Psychiatric: oriented x 3, other (moves all limbs equally) Skin: normal color, warm/dry; No cyanosis, No cool, No diaphoresis, No rash on exposed areas, No ulcerations on exposed areas Results/Procedures: Labs Laboratory Tests 07/31/23 05:08: Sodium Level 138, Potassium Level 4.5, Chloride Level 105, Carbon Dioxide Level 21, Anion Gap 12, Blood Urea Nitrogen 8, Creatinine 0.68, Estimat Glomerular Filtration Rate 98, BUN/Creatinine Ratio 12, Glucose Level 117H, Calcium Level 8.5, Corrected Calcium 9.1, Phosphorus Level 2.5, Magnesium Level 2.4, Total Bilirubin 0.4, Aspartate Amino Transf (AST/SGOT) 133H, Alanine Aminotransferase (ALT/SGPT) 145H, Alkaline Phosphatase 99, Total Protein 6.0L, Albumin 3.3 07/31/23 05:15: White Blood Count 11.2H, Red Blood Count 3.73L, Hemoglobin 10.9L, Hematocrit 34L , Mean Corpuscular Volume 91, Mean Corpuscular Hemoglobin 29, Mean Corpuscular Hemoglobin Concent 32, Red Cell Distribution Width 13.1, Platelet Count 300, Mean Platelet Volume 9.3, Immature Granulocyte % (Auto) 1, Neutrophils (%) (Auto) 82H, Lymphocytes (%) (Auto) 12, Monocytes (%) (Auto) 5, Eosinophils (%) (Auto) 0, Basophils (%) (Auto) 0, Neutrophils # (Auto) 9.2H, Lymphocytes # (Auto) 1.3, Monocytes # (Auto) 0.6, Eosinophils # (Auto) 0.0, Basophils # (Auto) 0.0, Immature Granulocyte # (Auto) 0.1 Microbiology 07/29/23 MRSA Screen - Final, Complete MRSA not isolated 07/25/23 Blood Culture - Preliminary, Resulted 07/25/23 Urine Culture - Final, Complete Enterobacter cloacae complex Mixed Bacterial Guillermina Laboratory Tests 07/30/23 05:10 07/31/23 05:08 07/31/23 05:15 A/P: Assessment: Ac cholecystitis - s/p lap bhavik on 07-30-[address] Bear Advanced COPD - requires supplemental oxygen No symptoms of angina of CHF - echo on 07-30-23: LVEF 50-55%, mild MR, PASP 30-35 mmHg Plan: Cardiac status clinically stable Continue current antihypertensive regimen GERARD GUTIERREZ MD FACP [facility] Jul 31, 2023 13:39
[2023-07-31 16:03] VITALS: BP 128/67
--- NOTE | 2023-07-31 16:07 | Progress Note ---
Subjective Date Seen by a Provider: Jul 31, 2023 Time Seen by a Provider: 16:00 Subjective/Events-last exam doing much better. minimal abd pain. no nausea/vomiting and tolerating regular diet. ambulating well Objective Exam Vital Signs Date Time Temp Pulse Resp B/P (MAP) Pulse Ox O2 Delivery O2 Flow Rate FiO2 07/31/23 16:03 36.5 96 17 128/67 97 Nasal Cannula 2.00 07/31/23 11:24 36.5 96 17 128/67 (87) 97 Nasal Cannula 2.00 07/31/23 11:06 Nasal Cannula 2.00 97 07/31/23 08:00 Nasal Cannula 2.00 07/31/23 07:47 36.4 91 17 135/64 (87) 96 Nasal Cannula 2.00 07/31/23 06:50 Nasal Cannula 2.00 07/31/23 06:49 Nasal Cannula 2.00 07/31/23 04:44 35.9 86 18 127/75 (92) 95 Nasal Cannula 2.00 2.00 07/31/23 00:25 36.8 07/30/23 23:05 35.9 07/30/23 23:04 36.8 86 18 120/64 (82) 93 Nasal Cannula 2.00 07/30/23 22:25 Room Air 07/30/23 20:59 Nasal Cannula 2.00 07/30/23 19:49 36.5 89 20 119/74 (89) 94 Nasal Cannula 2.00 I & O 07/31/23 07:00 Intake Total 1940 ml Output Total 1270 ml Balance 670 ml Capillary Refill : Less Than 3 Seconds General Appearance: No Apparent Distress HEENT: PERRL/EOMI Neck: Full Range of Motion Respiratory: Chest Non Tender, Rhonci, Wheezing Cardiovascular: Regular Rate, Rhythm Gastrointestinal: normal bowel sounds, soft, tenderness Extremity: Normal Capillary Refill Neurologic/Psychiatric: Alert, Oriented x3 Skin: Normal Color Lymphatic: No Adenopathy Results Lab Laboratory Tests 07/31/23 05:08: Sodium Level 138, Potassium Level 4.5, Chloride Level 105, Carbon Dioxide Level 21, Anion Gap 12, Blood Urea Nitrogen 8, Creatinine 0.68, Estimat Glomerular Filtration Rate 98, BUN/Creatinine Ratio 12, Glucose Level 117H, Calcium Level 8.5, Corrected Calcium 9.1, Phosphorus Level 2.5, Magnesium Level 2.4, Total Bilirubin 0.4, Aspartate Amino Transf (AST/SGOT) 133H, Alanine Aminotransferase (ALT/SGPT) 145H, Alkaline Phosphatase 99, Total Protein 6.0L, Albumin 3.3 07/31/23 05:15: White Blood Count 11.2H, Red Blood Count 3.73L, Hemoglobin 10.9L, Hematocrit 34L , Mean Corpuscular Volume 91, Mean Corpuscular Hemoglobin 29, Mean Corpuscular Hemoglobin Concent 32, Red Cell Distribution Width 13.1, Platelet Count 300, Mean Platelet Volume 9.3, Immature Granulocyte % (Auto) 1, Neutrophils (%) (Auto) 82H, Lymphocytes (%) (Auto) 12, Monocytes (%) (Auto) 5, Eosinophils (%) (Auto) 0, Basophils (%) (Auto) 0, Neutrophils # (Auto) 9.2H, Lymphocytes # (Auto) 1.3, Monocytes # (Auto) 0.6, Eosinophils # (Auto) 0.0, Basophils # (Auto) 0.0, Immature Granulocyte # (Auto) 0.1 Microbiology 07/29/23 MRSA Screen - Final, Complete MRSA not isolated 07/25/23 Blood Culture - Preliminary, Resulted 07/25/23 Urine Culture - Final, Complete Enterobacter cloacae complex Mixed Bacterial Guillermina Assessment/Plan Assessment/Plan Assess & Plan/Chief Complaint epigastric pain with hx GERD and PUD with 2 recent episodes of COPD exacerbation requiring steroid therapy. stress and glucorticoid induced GERD and PUD. EGD showed reflux and gastritis as well as small HH. Persistent pain with nausea and vomiting HIDA scan done today which showed EF 9% and reproduction of sx with administration of kinevac analogue consistent with sx biliary dyskinesia. will plan for lap bhavik one tues around 11:30. will get cardiac clearance before surgery. s/p lap bhavik for acute acalculous cholecystitis. doing well. tolerating diet and pain controlled. home soon. f/u early next week in [facility] for drain removal. GUMARO WHITNEY MD Jul 31, 2023 16:07
--- NOTE | 2023-08-01 12:54 | Physician Query Clarification ---
PQ-Uncertain Diagnosis Admission/Discharge Admission Date: Jul 26, 2023 at 04:44 Discharge Date: Jul 31, 2023 at 16:00 Dr. Whitney, The medical record reflects the following clinical scenario: History/Risk Factors: epigastric pain Clinical Findings: EGD - reflux esophagitis, hiatal hernia, moderate gastritis, acute acalculus cholecysitis Treatment: dietary/lifestyle changes, 40 mg Protonix daily, cholecystectomy Question: Is upper GI bleed a clinically valid diagnosis? Upper GI bleed was documented in the pre-op record with no further documentation in the medical record. If upper GI bleed is a valid diagnosis please specify the underlying cause or indicate the the underlying cause is undetermined. Please document a response in Progress Note or Discharge Summary. 1. Yes, clinically valid, condition resolved. 2. No, condition ruled out. 3. Other, with explanation of clinical findings. 4. Undetermined, no explanation for clinical findings. PHYSICIAN RESPONSE Diagnosis clinically valid: No, conditon ruled out In responding to this query, please exercise your independent professional judgment. The purpose of this communication is to more accurately reflect the complexity of your patients condition. The fact that a question is asked does not imply that any particular answer is desired or expected. Thank you for your timely response to this clarification. Requestors name: Eduard THIS PHYSICIAN QUERY FORM IS A PERMANENT PART OF THE MEDICAL RECORD EDUARD ROBERTS Aug 01, 2023 12:54 GUMARO WHITNEY MD Aug 01, 2023 15:32
== END 2023-07-31 16:00 | disposition home or self-care (01) | DRG 419 ==
LOC: EDUNIT# 22:19 → ER 22:21 → ICU 07-26 04:44 → 4TH 07-26 15:31
PROVIDERS: ADMIT Internal Medicine; ATTEND Internal Medicine
PROC: 0DB78ZX Excision of Stomach, Pylorus, Via Natural or Artificial Opening Endoscopic, Diagnostic (ICD-10-PCS; 2023-07-27)
PROC: 0DB48ZX Excision of Esophagogastric Junction, Via Natural or Artificial Opening Endoscopic, Diagnostic (ICD-10-PCS; 2023-07-27)
PROC: 0FT44ZZ Resection of Gallbladder, Percutaneous Endoscopic Approach (ICD-10-PCS; principal; 2023-07-30 12:23)
DX: K81.0 Acute cholecystitis (principal); K82.8 Other specified diseases of gallbladder; I77.6 Arteritis, unspecified; J43.9 Emphysema, unspecified; Z99.81 Dependence on supplemental oxygen; I10 Essential (primary) hypertension; K21.00 Gastro-esophageal reflux disease with esophagitis, without bleeding; K44.9 Diaphragmatic hernia without obstruction or gangrene; K29.60 Other gastritis without bleeding; T38.0X5A Adverse effect of glucocorticoids and synthetic analogues, initial encounter; E66.9 Obesity, unspecified; Z68.36 Body mass index [BMI] 36.0-36.9, adult; M54.9 Dorsalgia, unspecified; G89.29 Other chronic pain; M19.90 Unspecified osteoarthritis, unspecified site; Z87.891 Personal history of nicotine dependence; Z88.1 Allergy status to other antibiotic agents; Z79.899 Other long term (current) drug therapy
CPT/HCPCS: 36415; 71260; 74177; 76700; 78227; 80048; 80053; 80076; 81000; 82150; 83605; 83690; 83735; 84100; 85007; 85025; 85027; 85610; 85730; 86141; 87040; 87077; 87081; 87088; 87186; 93005; 93041; 93306; 94640; 94760